=== PATIENT | female | born 1955 | race Caucasian/White ===

== ENCOUNTER 2017-09-06 18:47 | Observation (INO) ==
[2017-09-06] MEDS ORDERED: Ipratropium/Albuterol Neb 3 ML IH ONE (18:55)
[2017-09-06] MEDS ORDERED: methylPREDNISolone 125 MG/2 ML VIAL IVP ONE (19:10)
[2017-09-06 19:21] LABS: Basophils % 0.4 %; Eosinophils # 0.4 K/mcL (0.0-0.6); Eosinophils % 3.8 %; Hematocrit 46.4 % (35.3-44.9); Hemoglobin 14.6 g/dL (11.5-15.4); Immature Granulocytes % 0.2 % (0-4); Lymphocytes # 3.2 K/mcL (0.6-4.6); Lymphocytes % 34.6 %; Mean Corpuscular HGB Conc 31.5 g/dL (31.6-35.5); Mean Corpuscular Hemoglobin 25.1 pg (28.0-33.3); Mean Corpuscular Volume 79.9 fL (83.0-100.0); Mean Platelet Volume 10.3 fL (9.4-12.4); Monocytes # 0.6 K/mcL (0.0-1.3); Monocytes % 6.6 %; Platelet Count 348 K/mcL (140-400); Red Blood Count 5.81 M/mcL (3.82-4.97); Red Cell Distribution Width 20.9 % (11.5-14.5); Segmented Neutrophils % 54.4 %
--- NOTE | 2017-09-06 19:29 | Emergency Department Note ---
Disposition Clinical Impression: Acute exacerbation of chronic obstructive airways disease, Respiratory distress Disposition: Admitted As Inpatient Condition: Undetermined Time of Disposition: 21:03 SOB HPI - General Chief Complaint: ED Shortness of Breath/Dyspnea Stated Complaint: GIBRAN CP Time Seen by Provider: 09/06/17 18:49 Source: patient Mode of arrival: ambulatory Limitations: no limitations Nursing Notes Reviewed: Yes Vital Signs Reviewed: Yes - History of Present Illness 62-year-old female with history of COPD on chronic oxygen on 3 L nasal cannula chronically arrives to [facility] to the emergency department complaining of shortness of breath. The patient was recently treated for pneumonia with Levaquin which did not help. The patient is continue the Levaquin but was recently added onto Augmentin. This was roughly 1 week ago but the patient has not taken only 2 days worth of medication. She denies any other complaints other than chills, shortness of breath and chest tightness associated with the difficulty breathing. Pt Subjective Complaint: shortness of breath, cough, pain with inspiration Onset (ago): day(s) (5) Severity: moderate, severe Consistency/Duration: constant, gradually worsening Improves with: oxygen, bronchodilators Worsens with: exertion Known history of: COPD, recurrent pneumonia Associated symptoms: Reports: pain with inspiration, cough, wheezing, sputum production Treatment prior to arrival: oxygen, bronchodilator Cough present: Yes Cough Description: Involuntary, Productive Cough Frequency: Continuous Sputum production: Yes Sputum Amount: Small Sputum Color: White, Cream - Related Data Home oxygen amount: 3 liters Home Medications Medication Instructions Recorded Confirmed ALPRAZolam [Xanax 1 MG Tablet] 2 mg PO QID 02/16/16 09/06/17 Albuterol Sulfate [Proair 2 puff IH Q4H PRN 02/16/16 09/06/17 Respiclick] Aspirin 325 mg PO DAILY 02/16/16 09/06/17 Budesonide/Formoterol 160/4.5 2 puff IH BID 02/16/16 09/06/17 [Symbicort 160/4.5] Dronabinol [Marinol] 5 mg PO BID 02/16/16 09/06/17 Ergocalciferol (VITAMIN D2) 50,000 unit PO QWEEK 02/16/16 09/06/17 [Vitamin D2 (50,000 UNIT)] Furosemide [Lasix] 40 mg PO DAILY 02/16/16 09/06/17 Oxycodone HCl 15 mg PO Q6H PRN 02/16/16 09/06/17 Pantoprazole Sodium [Protonix] 80 mg PO DAILY 02/16/16 09/06/17 Potassium Chloride [K-Tab ER] 20 meq PO BID 02/16/16 09/06/17 Promethazine [Phenergan] 25 mg PO Q6HR 02/16/16 09/06/17 Roflumilast [Daliresp] 500 mcg PO DAILY 02/16/16 09/06/17 Sertraline [Zoloft] 125 mg PO DAILY 02/16/16 09/06/17 Tiotropium [Spiriva] 18 mcg IH DAILY 02/16/16 09/06/17 amLODIPine [Norvasc] 2.5 mg PO DAILY 02/16/16 09/06/17 Albuterol Neb [Proventil Neb] 2.5 mg IH TID 09/06/17 09/06/17 Amoxicillin/Clavulanate [Augmentin] 500 mg PO BID 09/06/17 09/06/17 Cyanocobalamin (B-12) [Vitamin B12] 1,000 mcg IM QMONTH 09/06/17 09/06/17 Ipratropium/Albuterol Neb [Duoneb] 3 ml IH QID 09/06/17 09/06/17 Ondansetron [Zofran] 4 mg PO BID PRN 09/06/17 09/06/17 Oxygen 1 each IH AD 09/06/17 09/06/17 Pyridoxine HCl [Vitamin B-6] 200 mg PO DAILY 09/06/17 09/06/17 Riboflavin 400 mg PO QDPC 09/06/17 09/06/17 Allergies Allergy/AdvReac Type Severity Reaction Status Date / Time levofloxacin [From Levaquin] Allergy Hives Verified 09/06/17 21:19 Cyclobenzaprine AdvReac Irritable Verified 09/06/17 21:19 [From Flexeril] gabapentin AdvReac Irritable Verified 09/06/17 21:19 All systems ED: reviewed and negative except as stated. Constitutional: Reports: chills, weakness. Denies: fever ENT ED: Denies: congestion Cardiovascular: Reports: chest pain, dyspnea on exertion. Denies: orthopnea, edema Respiratory: Reports: cough, dyspnea, wheezes, sputum production. Denies: hemoptysis Gastrointestinal: Denies: abdominal pain, nausea, vomiting Musculoskeletal: Denies: back pain, neck pain, arthralgia, myalgia Integumentary: Denies: rash Neurological: Denies: headache Past Medical History - Past Medical History Attestation: Yes The following information was validated with the patient. Source: patient Medical history: Reports: COPD, coronary artery disease, GERD, hyperlipidemia, myocardial infarction, peripheral artery disease, RA Surgical history: Reports: cholecystectomy, coronary bypass (CABG), hysterectomy Psychiatric history: Reports: anxiety, depression - Social History Smoking Status: Former smoker Smokeless Tobacco Status: No Alcohol use: Reports: rarely Drug use: Reports: none Physical Exam - General Limitations: no limitations General appearance: alert, in distress (respiratory) - Head Head exam: atraumatic, normocephalic, normal inspection - Eye Eye exam: Present: normal appearance, PERRL, EOMI - ENT ENT exam: normal exam, normal oropharynx, mucous membranes moist - Neck Neck exam: Present: normal inspection, full ROM, trachea midline - Chest Chest inspection: Present: normal inspection, symmetric chest wall rise - Respiratory Respiratory exam: Present: respiratory distress, wheezes, accessory muscle use - Cardiovascular Cardiovascular exam: Present: normal rhythm, tachycardia, normal heart sounds - Abdominal Exam Abdominal exam: Present: soft, Non-Tender. Absent: tenderness, distention, guarding, rebound, rigidity - Extremities Exam Extremities exam: Present: normal inspection, full ROM. Absent: tenderness, pedal edema Course Vital Signs Temperature 99.0 F 09/06/17 18:52 Pulse Rate 104 09/06/17 18:52 Respiratory Rate 24 09/06/17 18:52 Blood Pressure 165/120 09/06/17 18:52 O2 Sat by Pulse Oximetry 95 09/06/17 18:52 Temperature 98.1 F 09/07/17 00:01 Pulse Rate 73 09/07/17 00:01 Respiratory Rate 14 09/07/17 00:01 Blood Pressure 113/64 09/07/17 00:01 O2 Sat by Pulse Oximetry 95 09/07/17 00:01 Oxygen Delivery Oxygen Delivery Nasal Cannula Shortness of Breath/Dyspnea - [facility] Narrative Medical decision making narrative: Workup here in the emergency department demonstrates a COPD exacerbation. No obvious signs of pneumonia. We began the patient on therapy including steroids , DuoNeb. She improved greatly upon arrival to the emergency department and treatment. The patient is resting comfortably at this time but given the fact that her O2 saturation was less than 80% we will admit the patient to the hospitalist for further care and workup. Patient made aware agrees to plan. Accepted by Dr. Virk. - Lab Data Lab results reviewed: Yes I reviewed the patient's lab results. Result diagrams: 09/06/17 19:02 09/06/17 19:02 Lab Results 09/06/17 09/06/17 09/06/17 Range/Units 19:02 19:02 19:02 WBC 9.2 (4.3-11.1) K/mcL RBC 5.81 H (3.82-4.97) M/mcL Hgb 14.6 (11.5-15.4) g/dL Hct 46.4 H (35.3-44.9) % MCV 79.9 L (83.0-100.0) fL MCH 25.1 L (28.0-33.3) pg MCHC 31.5 L (31.6-35.5) g/dL RDW 20.9 H (11.5-14.5) % Plt Count 348 (140-400) K/mcL MPV 10.3 (9.4-12.4) fL Immature Gran % 0.2 (0-4) % Seg Neutrophils % 54.4 % Lymphocytes % 34.6 % Monocytes % 6.6 % Eosinophils % 3.8 % Basophils % 0.4 % Neutrophils # 5.0 (1.6-8.9) K/mcL Lymphocytes # 3.2 (0.6-4.6) K/mcL Monocytes # 0.6 (0.0-1.3) K/mcL Eosinophils # 0.4 (0.0-0.6) K/mcL Basophils # 0.0 (0.0-0.2) K/mcL Sodium 140 (136-145) mEq/L Potassium 4.0 (3.5-4.5) mEq/L Chloride 101 (98-109) mEq/L Carbon Dioxide 30 H (19-29) mEq/L BUN 6 L (7-20) mg/dL Creatinine 0.74 (0.57-1.11) mg/dL Est GFR ( Amer) > 60 (> 60) Est GFR (Non-Af Amer) > 60 (> 60) BUN/Creatinine Ratio 8 (6-26) Glucose 105 H (70-99) mg/dL Calculated Osmolality 288 (280-300) Lactic Acid 1.1 (0.5-2.2) mmol/L Calcium 9.9 (8.6-10.8) mg/dL Troponin I (0-0.03) ng/mL 09/06/17 Range/Units 20:26 WBC (4.3-11.1) K/mcL RBC (3.82-4.97) M/mcL Hgb (11.5-15.4) g/dL Hct (35.3-44.9) % MCV (83.0-100.0) fL MCH (28.0-33.3) pg MCHC (31.6-35.5) g/dL RDW (11.5-14.5) % Plt Count (140-400) K/mcL MPV (9.4-12.4) fL Immature Gran % (0-4) % Seg Neutrophils % % Lymphocytes % % Monocytes % % Eosinophils % % Basophils % % Neutrophils # (1.6-8.9) K/mcL Lymphocytes # (0.6-4.6) K/mcL Monocytes # (0.0-1.3) K/mcL Eosinophils # (0.0-0.6) K/mcL Basophils # (0.0-0.2) K/mcL Sodium (136-145) mEq/L Potassium (3.5-4.5) mEq/L Chloride (98-109) mEq/L Carbon Dioxide (19-29) mEq/L BUN (7-20) mg/dL Creatinine (0.57-1.11) mg/dL Est GFR ( Amer) (> 60) Est GFR (Non-Af Amer) (> 60) BUN/Creatinine Ratio (6-26) Glucose (70-99) mg/dL Calculated Osmolality (280-300) Lactic Acid (0.5-2.2) mmol/L Calcium (8.6-10.8) mg/dL Troponin I 0.00 (0-0.03) ng/mL - Radiology Data Radiology results reviewed: Yes I reviewed the patient's radiology results. - EKG Data EKG attestation: Yes I reviewed and interpreted this EKG. EKG results narrative: Heart rate 97 bpm. ID interval 121 ms. QTc 412 ms. Normal sinus rhythm. Difficult to assess rhythm as there is a large amount of artifact. No obvious ST elevation or ST depression but poor EKG quality overall. Critical Care Time Critical Care Time: Yes Total Critical Care Time: 33 Attestation: Acute hypoxia and respiratory distress on arrival Attestation Statement - Attestation Attestation: Dr. Rodriguez note: Patient was seen in conjunction with resident Dr. Holguin; please see his charting for complete documentation. I spent [id number] time with the patient and agree with the patient's treatment and disposition. Patient will results and x-ray were reviewed. She was admitted in stabilized condition. Tachypnea and hypoxia on home oxygen had resolved.
[2017-09-06 19:32] LABS: BUN/Creatinine Ratio 8 (6-26); Blood Urea Nitrogen 6 mg/dL (7-20); Calcium 9.9 mg/dL (8.6-10.8); Carbon Dioxide 30 mEq/L (19-29); Chloride 101 mEq/L (98-109); Glucose 105 mg/dL (70-99); Osmolality,Calculated 288 (280-300); Sodium 140 mEq/L (136-145); eGFR For African Americans > 60 (> 60); eGFR For Non-African Americans > 60 (> 60)
[2017-09-06] MEDS ORDERED: Azithromycin 500 MG in D5% in Water 250 ML IVPB ONE (20:49)
[2017-09-06] MEDS ORDERED: Ondansetron 4 MG/2 ML VIAL IVP ONE (21:15)
[2017-09-06] MEDS ORDERED: Ibuprofen 600 MG TABLET PO ONE (21:24)
[2017-09-06] MEDS ORDERED: Ondansetron ODT 4 MG TAB.RAPDIS PO PRN (22:45)
[2017-09-06] MEDS ORDERED: Ipratropium/Albuterol Neb 3 ML IH PRN (22:47)
--- NOTE | 2017-09-06 22:49 | Internal Med History&Physical ---
Date of Encounter: 09/06/17 Time of Encounter: 22:49 Assessment and Plan (1) COPD (chronic obstructive pulmonary disease) Current visit: No Status: Chronic COPD cocktail with IV meds close monitoring baseline , she is at 3 L NC OOB, ambulate in a.m Qualifiers: COPD type: emphysema Emphysema type: unspecified Qualified Code(s): J43.9 - Emphysema, unspecified (2) Tobacco abuse Current visit: Yes Status: Acute patch therapy (3) Chest pain Current visit: No Status: Acute monitor for now could be hx of reported hiatal hernia, breathing/coughing with COPD trop negative Qualifiers: Chest pain type: unspecified Qualified Code(s): R07.9 - Chest pain, unspecified Internal Medicine - H&P: HPI Chief complaint: SOB History of present illness: Ms. Rahman is a 62 year old female who presents with COPD flare. Baseline 3 L NC. Reports worsening respiratory symptoms in the last few weeks, Cough with productive of yellow sputum. Took 2 doses of augmentin prescribed by PCP at home with no improvement. Still smokes daily. Has hx of CABG, hiatal hernia and intermittent hx of chronic CP that improves with drinking milk per patient/family. EKG with rate 97, NSR XR/XR chest 1V portable IMPRESSION: 1. No acute cardiopulmonary abnormality. 2. Stable findings of emphysema with chronic bibasilar reticular opacities likely reflecting mild interstitial fibrosis. Past Med Surg Social Fam HX - Past Medical History Medical history: COPD, coronary artery disease, GERD, hyperlipidemia, myocardial infarction, peripheral artery disease, RA Psychiatric history: anxiety, depression - Past Surgical History Surgical History: cholecystectomy, coronary bypass (CABG), hysterectomy - Social History Smoking Status: Former smoker Smokeless Tobacco Status: No Alcohol use: rarely Drug use: none - Family History Mother Living Status: Hx Family Cardiac Disorders: Yes (CHF) Hx Family Respiratory Disorders: Yes (COPD) Hx Family Cancer: No Father Living Status: Hx Family Cardiac Disorders: Yes (IA,) Internal Medicine - H&P: Meds ALPRAZolam [Xanax 1 MG Tablet] 2 mg PO QID 02/16/16 [History] Albuterol Sulfate [Proair Respiclick] 2 puff IH Q4H PRN 02/16/16 [History] Aspirin 325 mg PO DAILY 02/16/16 [History] Budesonide/Formoterol 160/4.5 [Symbicort 160/4.5] 2 puff IH BID 02/16/16 [ History] Dronabinol [Marinol] 5 mg PO BID 02/16/16 [History] Ergocalciferol (VITAMIN D2) [Vitamin D2 (50,000 UNIT)] 50,000 unit PO QWEEK 07/24 [History] Furosemide [Lasix] 40 mg PO DAILY 02/16/16 [History] Oxycodone HCl 15 mg PO Q6H PRN 02/16/16 [History] Pantoprazole Sodium [Protonix] 80 mg PO DAILY 02/16/16 [History] Potassium Chloride [K-Tab ER] 20 meq PO BID 02/16/16 [History] Promethazine [Phenergan] 25 mg PO Q6HR 02/16/16 [History] Roflumilast [Daliresp] 500 mcg PO DAILY 02/16/16 [History] Sertraline [Zoloft] 125 mg PO DAILY 02/16/16 [History] Tiotropium [Spiriva] 18 mcg IH DAILY 02/16/16 [History] amLODIPine [Norvasc] 2.5 mg PO DAILY 02/16/16 [History] Albuterol Neb [Proventil Neb] 2.5 mg IH TID 09/06/17 [History] Amoxicillin/Clavulanate [Augmentin] 500 mg PO BID 09/06/17 [History] Cyanocobalamin (B-12) [Vitamin B12] 1,000 mcg IM QMONTH 09/06/17 [History] Ipratropium/Albuterol Neb [Duoneb] 3 ml IH QID 09/06/17 [History] Ondansetron [Zofran] 4 mg PO BID PRN 09/06/17 [History] Oxygen 1 each IH AD 09/06/17 [History] Pyridoxine HCl [Vitamin B-6] 200 mg PO DAILY 09/06/17 [History] Riboflavin 400 mg PO QDPC 09/06/17 [History] 3 Allergy/AdvReac Type Severity Reaction Status Date / Time levofloxacin [From Levaquin] Allergy Hives Verified 09/06/17 21:19 Cyclobenzaprine AdvReac Irritable Verified 09/06/17 21:19 [From Flexeril] gabapentin AdvReac Irritable Verified 09/06/17 21:19 All Systems PM: A 10-system review of systems was performed and is negative for pertinent findings except as documented above in the HPI. Review of systems: ROS 14 point review of systems reviewed as best as possible given presentation. Pertinent positive or negative as per HPI or otherwise reviewed as negative - Constitutional Vitals: Temp Pulse Resp BP Pulse Ox 97.4 F L 73 16 156/87 96 09/06/17 22:20 09/06/17 22:20 09/06/17 22:20 09/06/17 22:20 09/06/17 22:20 Exam: General - AAO x 3 Psych - Appropriate affect/speech. No agitation Eyes - SHARAD. Eye lids intact. No scleral icterus Heart - Sinus. RRR. S1 and S2 present. No added HS/murmurs appreciated. No elevated JVD appreciated. Lung - Adequate air entry b/l, Diffuse wheezes appreciated GI - Soft, non-tender. No hepatosplenomegaly/ascites. BS+ - No CVA/suprapubic tenderness or palpable bladder distension Skin - Intact. No rash/petechiae/ecchymosis. Warm extremities Internal Med - H&P Results - Labs CBC & Chem 7: 09/06/17 19:02 09/06/17 19:02
[2017-09-06] MEDS ORDERED: Naloxone 0.4 MG/ML INJ IVP PRN ×2 (22:56→22:58)
[2017-09-06] MEDS: MethylPREDNISolone 40 MG/ML VIAL IVP SCH (23:23)
[2017-09-06] MEDS: ALPRAZolam 1 MG TABLET PO PRN (23:24)
[2017-09-07] MEDS: Ipratropium/Albuterol Neb 3 ML IH SCH ×4 (04:32→22:27)
[2017-09-07 04:34] LABS: Hematocrit 41.6 % (35.3-44.9); Immature Granulocytes % 0.2 % (0-4); Lymphocytes # 0.4 K/mcL (0.6-4.6); Lymphocytes % 7.8 %; Mean Corpuscular HGB Conc 31.3 g/dL (31.6-35.5); Mean Corpuscular Volume 79.8 fL (83.0-100.0); Mean Platelet Volume 10.3 fL (9.4-12.4); Monocytes # 0.1 K/mcL (0.0-1.3); Monocytes % 1.1 %; Neutrophils # 5.1 K/mcL (1.6-8.9); Platelet Count 298 K/mcL (140-400); Red Blood Count 5.21 M/mcL (3.82-4.97); Red Cell Distribution Width 20.4 % (11.5-14.5); Segmented Neutrophils % 90.9 %
[2017-09-07 04:53] LABS: BUN/Creatinine Ratio 14 (6-26); Blood Urea Nitrogen 11 mg/dL (7-20); Calcium 9.3 mg/dL (8.6-10.8); Carbon Dioxide 28 mEq/L (19-29); Chloride 104 mEq/L (98-109); Glucose 168 mg/dL (70-99); Osmolality,Calculated 291 (280-300); Potassium 4.3 mEq/L (3.5-4.5); Sodium 139 mEq/L (136-145); eGFR For African Americans > 60 (> 60); eGFR For Non-African Americans > 60 (> 60)
[2017-09-07] MEDS: MethylPREDNISolone 40 MG/ML VIAL IVP SCH ×2 (07:04→15:05)
[2017-09-07] MEDS: *HR* Enoxaparin 40 MG/0.4 ML SYRINGE SQ SCH (07:04)
[2017-09-07] MEDS: Tiotropium 18 MCG inhalation IH SCH (07:41)
--- NOTE | 2017-09-07 08:16 | Internal Med Progress Note ---
Date of Encounter: 09/07/17 Time of Encounter: 08:00 - Assessment and plan (1) Respiratory distress Current Visit: Yes Status: Acute Assessment and plan: due to COPD exacerbation still required high dose IV steroids (2) Acute exacerbation of chronic obstructive airways disease Current Visit: Yes Status: Acute Assessment and plan: cont high dose IV steroids Cont Duoneb + O2 Cont empirical abx - Azithromycin Reviewed CXR - no consolidations (3) Costochondral chest pain Current Visit: No Status: Acute Assessment and plan: Mostly due to cough negative initial troponin no acute EKG changes no further work up needed (4) CHF (congestive heart failure) Current Visit: Yes Status: Chronic Assessment and plan: No Echo to review unclear Systolic vs Diastolic..mostly diastolic Not in exacerbation now cont home regimen Qualifiers: Congestive heart failure type: unspecified congestive heart failure type Qualified Code(s): I50.9 - Heart failure, unspecified (5) Chronic respiratory failure with hypoxia Current Visit: Yes Status: Acute Assessment and plan: on 3 lit Home O2 dependent (6) DVT prophylaxis Current Visit: No Status: Acute Assessment and plan: on Lovenox SQ (7) Tobacco abuse Current Visit: Yes Status: Acute Assessment and plan: counseled to quit smoking on nicotine patch - Subjective Interval history: Ms. Rahman is a 62 year old female with known PMH of HTN, HLD, COPD, Chronic hypoxic resp failure with home O2 depedent at 3 lit, chronic tobacco dependence pt presented to ER with progressively worsening SOB / ISAAC and Cough with expectoration. She got admitted with severe COPD exacerbation and started on IV abx and high dose systemic steroids. She still has severe SOB and ISAAC.. Denied any CP. Cough ++ - Constitutional Vitals: Temp Pulse Resp BP Pulse Ox 97.5 F L 58 16 106/59 96 09/07/17 06:48 09/07/17 06:48 09/07/17 06:48 09/07/17 06:48 09/07/17 06:48 General appearance: Present: mild distress (mild resp distress), A&O X 3, answers questions appropriately - Head Head exam: Present: atraumatic, normal inspection - Neck Neck exam general surgery: Present: supple - Respiratory Respiratory exam: Present: decreased breath sounds, respiratory distress (mild) , wheezes (severe, diffuse wheezing). Absent: rales, rhonchi - Cardiovascular Cardiovascular exam: Present: RRR, +S1, +S2. Absent: systolic murmur - GI/Abdominal GI/Abdominal exam: Present: normal bowel sounds, soft. Absent: rebound, rigid, tenderness - Extremities Exam Extremities exam: Absent: calf tenderness, pedal edema, tenderness - Back Exam Back exam: Absent: CVA tenderness (L), CVA tenderness (R) - Neurological Exam Neurological exam: Present: alert, oriented X3, no focal deficits - Psychiatric Psychiatric exam: Present: anxious Internal Medicine: Result - Labs CBC & Chem 7: 09/07/17 03:50 09/07/17 03:50 Labs: Short CBC 09/07/17 Range/Units 03:50 WBC 5.6 (4.3-11.1) K/mcL Hgb 13.0 D (11.5-15.4) g/dL Hct 41.6 (35.3-44.9) % Plt Count 298 (140-400) K/mcL Neutrophils # 5.1 (1.6-8.9) K/mcL BMP 09/07/17 03:50 Sodium 139 Potassium 4.3 Chloride 104 Carbon Dioxide 28 BUN 11 Creatinine 0.76 Glucose 168 H Calcium 9.3 Consult Discharge Plan - Plan Referrals: Theo Mahan MD [Primary Care Provider] -
[2017-09-07] MEDS: Furosemide 40 MG TABLET PO SCH (08:53)
[2017-09-07] MEDS: Aspirin 325 MG TABLET PO SCH (08:53)
[2017-09-07] MEDS: amLODIPine 5 MG TABLET PO SCH (08:54)
[2017-09-07] MEDS: Nicotine 14 MG PATCH.TD24 TD SCH (08:55)
[2017-09-07] MEDS ORDERED: DALIRESP 500 MCG PO SCH (09:00)
[2017-09-07] MEDS: Budesonide/Formoterol 160/4.5 MDI IH SCH ×2 (09:05→22:27)
[2017-09-07] MEDS: ALPRAZolam 1 MG TABLET PO PRN ×3 (09:07→22:01)
[2017-09-07] MEDS: *HR* OxyCODONE/APAP 5/325 TABLET PO PRN ×3 (09:13→22:01)
[2017-09-07] MEDS: Azithromycin 500 MG in D5% in Water 250 ML IVPB SCH (22:00)
[2017-09-08] MEDS: MethylPREDNISolone 40 MG/ML VIAL IVP SCH ×6 (00:18→23:18)
[2017-09-08] MEDS: Ipratropium/Albuterol Neb 3 ML IH SCH ×4 (03:58→23:58)
[2017-09-08] MEDS: Aspirin 325 MG TABLET PO SCH (08:13)
[2017-09-08] MEDS: Furosemide 40 MG TABLET PO SCH (08:13)
[2017-09-08] MEDS: amLODIPine 5 MG TABLET PO SCH (08:14)
[2017-09-08] MEDS: Nicotine 14 MG PATCH.TD24 TD SCH (08:17)
[2017-09-08] MEDS: ALPRAZolam 1 MG TABLET PO PRN ×2 (10:41→18:23)
[2017-09-08] MEDS: Budesonide/Formoterol 160/4.5 MDI IH SCH ×2 (10:48→21:32)
[2017-09-08] MEDS: Tiotropium 18 MCG inhalation IH SCH (10:49)
[2017-09-08] MEDS: *HR* Enoxaparin 40 MG/0.4 ML SYRINGE SQ SCH (14:05)
[2017-09-08] MEDS: *HR* OxyCODONE/APAP 5/325 TABLET PO PRN ×2 (14:11→18:23)
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
[2017-09-08] MEDS ORDERED: Albuterol 2.5 MG/3 ML NEBULIZER IH PRN (15:17)
[2017-09-08] MEDS ORDERED: Lactulose Oral Soln 20 GM/30 ML UDC PO PRN (15:17)
[2017-09-08] MEDS ORDERED: Sennosides/Docusate Sodium TABLET PO PRN (15:17)
--- NOTE | 2017-09-08 16:00 | Internal Med Progress Note ---
Date of Encounter: 09/08/17 Time of Encounter: 15:58 - Assessment and plan (1) Respiratory distress Current Visit: Yes Status: Acute Assessment and plan: due to COPD exacerbation Improving still required high dose IV steroids (2) Acute exacerbation of chronic obstructive airways disease Current Visit: Yes Status: Acute Assessment and plan: improving slowly will start tapering her IV steroids Cont Duoneb + O2 Cont empirical abx - Azithromycin Reviewed CXR - no consolidations (3) Mood disorder of depressed type Current Visit: Yes Status: Acute Assessment and plan: Pt denied any suicidal ideation pt was evaluated by psych Recommend out pt f/u with Psychiatrist as well as behavioral therapist cont sertraline for now (4) Costochondral chest pain Current Visit: No Status: Acute Assessment and plan: Mostly due to cough negative initial troponin no acute EKG changes no further work up needed (5) CHF (congestive heart failure) Current Visit: Yes Status: Chronic Assessment and plan: No Echo to review unclear Systolic vs Diastolic..mostly diastolic Not in exacerbation now cont home regimen Qualifiers: Congestive heart failure type: unspecified congestive heart failure type Qualified Code(s): I50.9 - Heart failure, unspecified (6) Chronic respiratory failure with hypoxia Current Visit: Yes Status: Acute Assessment and plan: on 3 lit Home O2 dependent (7) DVT prophylaxis Current Visit: No Status: Acute Assessment and plan: on Lovenox SQ (8) Tobacco abuse Current Visit: Yes Status: Acute Assessment and plan: counseled to quit smoking on nicotine patch - Subjective Interval history: Ms. Rahman is a 62 year old female with known PMH of HTN, HLD, COPD, Chronic hypoxic resp failure with home O2 depedent at 3 lit, chronic tobacco dependence pt presented to ER with progressively worsening SOB / ISAAC and Cough with expectoration. She got admitted with severe COPD exacerbation and started on IV abx and high dose systemic steroids. Pt stated she is feeling little better today. Still has some SOB and ISAAC. Denied any CP. Cough ++. Y/D pt did mention to the nursing staff she is feeling depressed. Pt was evaluated by psychiatrist today. She denied any suicidal thoughts now. - Constitutional Vitals: Temp Pulse Resp BP Pulse Ox 98.2 F 85 16 134/88 98 09/08/17 06:30 09/08/17 06:30 09/08/17 15:18 09/08/17 06:30 09/08/17 15:18 General appearance: Present: A&O X 3, answers questions appropriately - Head Head exam: Present: atraumatic, normal inspection - Neck Neck exam general surgery: Present: supple - Respiratory Respiratory exam: Present: decreased breath sounds, wheezes (moderate to severe) . Absent: rales, respiratory distress, rhonchi - Cardiovascular Cardiovascular exam: Present: RRR, +S1, +S2. Absent: diastolic murmur, gallop, rubs, systolic murmur - GI/Abdominal GI/Abdominal exam: Present: normal bowel sounds, soft. Absent: rebound, rigid, tenderness - Extremities Exam Extremities exam: Absent: calf tenderness, pedal edema, tenderness - Back Exam Back exam: Absent: CVA tenderness (L), CVA tenderness (R) - Neurological Exam Neurological exam: Present: alert, oriented X3 - Psychiatric Psychiatric exam: Present: depressed. Absent: homicidal ideation, suicidal ideation - Skin Skin exam: Absent: rash Internal Medicine: Result - Labs CBC & Chem 7: 09/07/17 03:50 09/07/17 03:50 Consult Discharge Plan - Plan Referrals: Theo Mahan MD [Primary Care Provider] -
--- NOTE | 2017-09-08 16:28 | Electrocardiograph Report ---
[address] [place], [place] [address] Test Date: 2017-09-06 Pat Name: Aida Rahman Department: 103 Room: 3A15 Gender: F Survey Supervisor: : [id number] Requested By: Charanjit Salamanca Order Number: [id number] Reading MD: Jerome Murphy Measurements Intervals [place] Rate: 97 P: 76 WI: 121 QRS: 48 QRSD: 98 T: 58 QT: 358 QTc: 412 Interpretive Statements SUPRAVENTRICULAR RHYTHM ARTIFACT LIMITS INTERPRETATION Electronically Signed On 09-08-2017 16:27:10 EST by Jerome Murphy
[2017-09-08] MEDS: Azithromycin 500 MG in D5% in Water 250 ML IVPB SCH (21:14)
[2017-09-09] MEDS: Ipratropium/Albuterol Neb 3 ML IH SCH ×4 (03:30→22:21)
[2017-09-09] MEDS: *HR* Enoxaparin 40 MG/0.4 ML SYRINGE SQ SCH (05:28)
[2017-09-09] MEDS: amLODIPine 5 MG TABLET PO SCH (08:51)
[2017-09-09] MEDS: *HR* OxyCODONE/APAP 5/325 TABLET PO PRN ×2 (08:51→22:44)
[2017-09-09] MEDS: Aspirin 325 MG TABLET PO SCH (08:51)
[2017-09-09] MEDS: Furosemide 40 MG TABLET PO SCH (08:52)
[2017-09-09] MEDS: MethylPREDNISolone 40 MG/ML VIAL IVP SCH ×2 (08:52→17:23)
[2017-09-09] MEDS: Nicotine 14 MG PATCH.TD24 TD SCH (08:52)
[2017-09-09] MEDS: Budesonide/Formoterol 160/4.5 MDI IH SCH ×2 (09:30→22:21)
[2017-09-09] MEDS: Tiotropium 18 MCG inhalation IH SCH (09:30)
[2017-09-09] MEDS: ALPRAZolam 1 MG TABLET PO PRN ×2 (12:27→17:23)
--- NOTE | 2017-09-09 14:44 | Internal Med Progress Note ---
Date of Encounter: 09/09/17 Time of Encounter: 10:45 - Assessment and plan (1) Respiratory distress Current Visit: Yes Status: Acute Assessment and plan: due to COPD exacerbation Improving started tapering IV steroids (2) Acute exacerbation of chronic obstructive airways disease Current Visit: Yes Status: Acute Assessment and plan: improving slowly cont tapering her IV steroids Cont Duoneb + O2 Cont empirical abx - Azithromycin Reviewed CXR - no consolidations (3) Mood disorder of depressed type Current Visit: Yes Status: Acute Assessment and plan: Pt denied any suicidal ideation pt was evaluated by psych Recommend out pt f/u with Psychiatrist as well as behavioral therapist cont sertraline for now (4) Costochondral chest pain Current Visit: No Status: Acute Assessment and plan: Mostly due to cough negative initial troponin no acute EKG changes no further work up needed (5) CHF (congestive heart failure) Current Visit: Yes Status: Chronic Assessment and plan: No Echo to review unclear Systolic vs Diastolic..mostly diastolic Not in exacerbation now cont home regimen Qualifiers: Congestive heart failure type: unspecified congestive heart failure type Qualified Code(s): I50.9 - Heart failure, unspecified (6) Chronic respiratory failure with hypoxia Current Visit: Yes Status: Acute Assessment and plan: on 3 lit Home O2 dependent (7) DVT prophylaxis Current Visit: No Status: Acute Assessment and plan: on Lovenox SQ (8) Tobacco abuse Current Visit: Yes Status: Acute Assessment and plan: counseled to quit smoking on nicotine patch (9) Physical deconditioning Current Visit: Yes Status: Acute Assessment and plan: Pt stated from last 2 weeks she is feleing very weak and lethargic and unable to care for herself will order PT / OT eval May need SNF placement for shirt term PT / OT.. SW consulted - Subjective Interval history: Ms. Rahman is a 62 year old female with known PMH of HTN, HLD, COPD, Chronic hypoxic resp failure with home O2 depedent at 3 lit, chronic tobacco dependence pt presented to ER with progressively worsening SOB / ISAAC and Cough with expectoration. She got admitted with severe COPD exacerbation and started on IV abx and high dose systemic steroids. Pt stated she is feeling little better today. Still has some SOB and ISAAC. Denied any CP. Cough ++. No new complaints today She denied any suicidal thoughts now. - Constitutional Vitals: Temp Pulse Resp BP Pulse Ox 97.8 F 57 18 128/70 97 09/09/17 07:31 09/09/17 07:31 09/09/17 07:31 09/09/17 07:31 09/09/17 07:31 General appearance: Present: A&O X 3, answers questions appropriately - Head Head exam: Present: atraumatic, normal inspection - Neck Neck exam general surgery: Present: supple - Respiratory Respiratory exam: Present: decreased breath sounds, wheezes (moderate). Absent : rales, respiratory distress, rhonchi - Cardiovascular Cardiovascular exam: Present: RRR, +S1, +S2. Absent: diastolic murmur, gallop, rubs, systolic murmur - GI/Abdominal GI/Abdominal exam: Present: normal bowel sounds, soft. Absent: rebound, rigid, tenderness - Extremities Exam Extremities exam: Absent: calf tenderness, pedal edema, tenderness - Back Exam Back exam: Absent: CVA tenderness (L), CVA tenderness (R) - Neurological Exam Neurological exam: Present: alert, oriented X3 - Psychiatric Psychiatric exam: Present: normal affect, normal mood. Absent: suicidal ideation Internal Medicine: Result - Labs CBC & Chem 7: 09/07/17 03:50 09/07/17 03:50 Consult Discharge Plan - Plan Referrals: Theo Mahan MD [Primary Care Provider] -
[2017-09-09] MEDS: Azithromycin 500 MG in D5% in Water 250 ML IVPB SCH (22:42)
[2017-09-10] MEDS: ALPRAZolam 1 MG TABLET PO PRN ×3 (00:46→17:57)
[2017-09-10] MEDS: Ipratropium/Albuterol Neb 3 ML IH SCH ×4 (04:32→21:28)
[2017-09-10] MEDS: *HR* Enoxaparin 40 MG/0.4 ML SYRINGE SQ SCH (06:42)
[2017-09-10] MEDS: MethylPREDNISolone 40 MG/ML VIAL IVP SCH ×2 (06:43→17:57)
[2017-09-10] MEDS: amLODIPine 5 MG TABLET PO SCH (08:36)
[2017-09-10] MEDS: Nicotine 14 MG PATCH.TD24 TD SCH (08:36)
[2017-09-10] MEDS: Aspirin 325 MG TABLET PO SCH (08:37)
[2017-09-10] MEDS: Furosemide 40 MG TABLET PO SCH (08:38)
[2017-09-10] MEDS: Budesonide/Formoterol 160/4.5 MDI IH SCH ×2 (11:01→21:28)
[2017-09-10] MEDS: Tiotropium 18 MCG inhalation IH SCH (11:01)
[2017-09-10] MEDS: *HR* OxyCODONE/APAP 5/325 TABLET PO PRN ×2 (14:49→23:26)
--- NOTE | 2017-09-10 15:16 | Internal Med Progress Note ---
Date of Encounter: 09/10/17 Time of Encounter: 09:00 - Assessment and plan (1) Respiratory distress Current Visit: Yes Status: Acute Assessment and plan: due to COPD exacerbation Improving cont tapering IV steroids (2) Acute exacerbation of chronic obstructive airways disease Current Visit: Yes Status: Acute Assessment and plan: improving slowly cont tapering her IV steroids Cont Duoneb + O2 Cont empirical abx - Azithromycin # 4/5 Reviewed CXR - no consolidations (3) Mood disorder of depressed type Current Visit: Yes Status: Acute Assessment and plan: Pt denied any suicidal ideation pt was evaluated by psych Recommend out pt f/u with Psychiatrist as well as behavioral therapist cont sertraline for now (4) Costochondral chest pain Current Visit: No Status: Acute Assessment and plan: Mostly due to cough negative initial troponin no acute EKG changes no further work up needed (5) CHF (congestive heart failure) Current Visit: Yes Status: Chronic Assessment and plan: No Echo to review unclear Systolic vs Diastolic..mostly diastolic Not in exacerbation now cont home regimen Qualifiers: Congestive heart failure type: unspecified congestive heart failure type Qualified Code(s): I50.9 - Heart failure, unspecified (6) Chronic respiratory failure with hypoxia Current Visit: Yes Status: Acute Assessment and plan: on 3 lit Home O2 dependent (7) DVT prophylaxis Current Visit: No Status: Acute Assessment and plan: on Lovenox SQ (8) Tobacco abuse Current Visit: Yes Status: Acute Assessment and plan: counseled to quit smoking on nicotine patch (9) Physical deconditioning Current Visit: Yes Status: Acute Assessment and plan: Pt stated from last 2 weeks she is feeling very weak and lethargic and unable to care for herself waiting on PT / OT eval May need SNF placement for shirt term PT / OT.. SW consulted - Subjective Interval history: Ms. Rahman is a 62 year old female with known PMH of HTN, HLD, COPD, Chronic hypoxic resp failure with home O2 depedent at 3 lit, chronic tobacco dependence pt presented to ER with progressively worsening SOB / ISAAC and Cough with expectoration. She got admitted with severe COPD exacerbation and started on IV abx and high dose systemic steroids. Pt stated she is feeling little better today. Still has some SOB and ISAAC. Denied any CP. Cough ++. No new complaints today. She denied any suicidal thoughts now. - Constitutional Vitals: Temp Pulse Resp BP Pulse Ox 98 F 57 16 158/71 99 09/10/17 07:03 09/10/17 07:03 09/10/17 11:04 09/10/17 07:03 09/10/17 11:04 General appearance: Present: A&O X 3, answers questions appropriately - Head Head exam: Present: atraumatic, normal inspection - Respiratory Respiratory exam: Present: decreased breath sounds, wheezes (mild to moderate). Absent: rales, respiratory distress, rhonchi - Cardiovascular Cardiovascular exam: Present: RRR, +S1, +S2. Absent: systolic murmur - GI/Abdominal GI/Abdominal exam: Present: normal bowel sounds, soft. Absent: rebound, rigid, tenderness - Extremities Exam Extremities exam: Absent: calf tenderness, pedal edema, tenderness - Back Exam Back exam: Absent: CVA tenderness (L), CVA tenderness (R) - Neurological Exam Neurological exam: Present: alert, oriented X3 - Psychiatric Psychiatric exam: Present: normal affect, normal mood Internal Medicine: Result - Labs CBC & Chem 7: 09/07/17 03:50 09/07/17 03:50 Consult Discharge Plan - Plan Referrals: Theo Mahan MD [Primary Care Provider] -
[2017-09-10] MEDS: Azithromycin 500 MG in D5% in Water 250 ML IVPB SCH (23:25)
[2017-09-11] MEDS: *HR* OxyCODONE/APAP 5/325 TABLET PO PRN (03:30)
[2017-09-11] MEDS: Ipratropium/Albuterol Neb 3 ML IH SCH (04:51)
[2017-09-11 06:49] VITALS: BP 122/69
[2017-09-11] MEDS: MethylPREDNISolone 40 MG/ML VIAL IVP SCH (07:18)
[2017-09-11] MEDS: *HR* Enoxaparin 40 MG/0.4 ML SYRINGE SQ SCH (07:19)
--- NOTE | 2017-09-11 10:13 | Discharge Summary ---
Date of Encounter: 09/11/17 Time of Encounter: 10:10 - Discharge Diagnosis (1) Respiratory distress Priority: Primary Status: Acute (2) Acute exacerbation of chronic obstructive airways disease Priority: Primary Status: Acute (3) Mood disorder of depressed type Priority: Primary Status: Acute (4) Costochondral chest pain Priority: Secondary Status: Acute (5) CHF (congestive heart failure) Priority: Secondary Status: Chronic Qualifiers: Congestive heart failure type: unspecified congestive heart failure type Qualified Code(s): I50.9 - Heart failure, unspecified (6) Chronic respiratory failure with hypoxia Priority: Secondary Status: Acute (7) DVT prophylaxis Priority: Secondary Status: Acute (8) Tobacco abuse Priority: Secondary Status: Acute (9) Physical deconditioning Priority: Secondary Status: Acute - Discharge Medications Prescriptions: Albuterol Neb [Proventil Neb] 2.5 mg IH Q4H PRN #120 inhsol PRN Reason: Shortness Of Breath Nicotine Patch [Nicoderm] 14 mg TD DAILY #30 patch.td24 predniSONE [PredniSONE] 40 mg PO DAILY #10 tablet Home Medications: ALPRAZolam [Xanax 1 MG Tablet] 2 mg PO QID 02/16/16 [History] Albuterol Sulfate [Proair Respiclick] 2 puff IH Q4H PRN 02/16/16 [History] Aspirin 325 mg PO DAILY 02/16/16 [History] Budesonide/Formoterol 160/4.5 [Symbicort 160/4.5] 2 puff IH BID 02/16/16 [ History] Dronabinol [Marinol] 5 mg PO BID 02/16/16 [History] Ergocalciferol (VITAMIN D2) [Vitamin D2 (50,000 UNIT)] 50,000 unit PO QWEEK 07/24 [History] Furosemide [Lasix] 40 mg PO DAILY 02/16/16 [History] Oxycodone HCl 15 mg PO Q6H PRN 02/16/16 [History] Potassium Chloride [K-Tab ER] 20 meq PO BID 02/16/16 [History] Promethazine [Phenergan] 25 mg PO Q6HR 02/16/16 [History] Roflumilast [Daliresp] 500 mcg PO DAILY 02/16/16 [History] Sertraline [Zoloft] 125 mg PO DAILY 02/16/16 [History] Tiotropium [Spiriva] 18 mcg IH DAILY 02/16/16 [History] amLODIPine [Norvasc] 2.5 mg PO DAILY 02/16/16 [History] Cyanocobalamin (B-12) [Vitamin B12] 1,000 mcg IM QMONTH 09/06/17 [History] Ipratropium/Albuterol Neb [Duoneb] 3 ml IH QID 09/06/17 [History] Ondansetron [Zofran] 4 mg PO BID PRN 09/06/17 [History] Oxygen 1 each IH AD 09/06/17 [History] Pyridoxine HCl [Vitamin B-6] 200 mg PO DAILY 09/06/17 [History] Riboflavin 400 mg PO QDPC 09/06/17 [History] Albuterol Neb [Proventil Neb] 2.5 mg IH Q4H PRN #120 inhsol 09/11/17 [Rx] Nicotine Patch [Nicoderm] 14 mg TD DAILY #30 patch.td24 09/11/17 [Rx] Pantoprazole Sodium [Protonix] 40 mg PO DAILY #0 09/11/17 [Rx] predniSONE [PredniSONE] 40 mg PO DAILY #10 tablet 09/11/17 [Rx] Allergies/Adverse Reactions: 3 Allergy/AdvReac Type Severity Reaction Status Date / Time levofloxacin [From Levaquin] Allergy Hives Verified 09/06/17 21:19 Cyclobenzaprine AdvReac Irritable Verified 09/06/17 21:19 [From Flexeril] gabapentin AdvReac Irritable Verified 09/06/17 21:19 Date of admission: 09/06/17 22:56 Primary care physician: Theo Mahan MD Consults: 09/07/17 13:09 Consult to Psychiatry [CONS] Routine Consulting Provider: Psychiatry Cher Reason for Consult: severe depression Call Completed: Yes 09/09/17 14:41 Consult to Physical Therapy [CONS] Routine Comment: Evaluate, develop and implement POC Reason for Consult: physical deconditioning OT [Consult to Occupational Therapy] [CONS] Routine Comment: Evaluate, develop and implement POC Reason for Consult: physical deconditioning 09/09/17 14:46 Consult to Packaging Inspector [CONS] Routine Reason for SW Consult: May need SNF placement - Patient Status Disposition: Home, Self-Care Condition: Good Overall status at discharge: patient is back to baseline - Discharge Instructions Follow Up With: Theo Mahan MD [Primary Care Provider] - Additional Instructions: Need to f/u with psychiatrist [facility] 1[facility]2 weeks Also need to f/u with behavioral therapist.. please talk to your PCP to arrange these. - Diet and Activity Activity: wear oxygen at all times (3 lit) Diet: low salt diet Hospital course: Ms. Rahman is a 62 year old female with known PMH of HTN, HLD, COPD, Chronic hypoxic resp failure with home O2 depedent at 3 lit, chronic tobacco dependence pt presented to ER with progressively worsening SOB / ISAAC and Cough with expectoration. She got admitted with severe COPD exacerbation and started on IV abx and high dose systemic steroids. Pt symptoms started improving slowly. We started tapering down her steroids since last 2 days. Today she feels like she back to baseline her breathing otoole and wants to go home. I did disability counselor the pt to quit smoking. She also c/o feeling depressed during this hospitalization but denied any suicidal ideation. She was seen by psychiatrist and recommend to cont her home med Sertraline and f/u with psychiatrist and behavioral therapist as an out pt. - Time Spent with Patient Total time spent providing and/or coordinating discharge services: - Constitutional Vitals: Temp Pulse Resp BP Pulse Ox 97.4 F L 56 18 122/69 100 09/11/17 06:45 09/11/17 06:45 09/11/17 06:45 09/11/17 06:45 09/11/17 09:17 General appearance: Present: A&O X 3, answers questions appropriately - Head Head exam: Present: atraumatic, normal inspection - Respiratory Respiratory exam: Present: decreased breath sounds, wheezes (mild). Absent: rales, respiratory distress, rhonchi - Cardiovascular Cardiovascular exam: Present: RRR, +S1, +S2. Absent: tachycardia - GI/Abdominal GI/Abdominal exam: Present: normal bowel sounds, soft. Absent: rebound, rigid, tenderness - Extremities Exam Extremities exam: Absent: calf tenderness, pedal edema, tenderness - Back Exam Back exam: Absent: CVA tenderness (L), CVA tenderness (R) - Psychiatric Psychiatric exam: Present: normal affect, normal mood. Absent: homicidal ideation, suicidal ideation
[2017-09-11] MEDS: ALPRAZolam 1 MG TABLET PO PRN (10:35)
[2017-09-11] MEDS: amLODIPine 5 MG TABLET PO SCH (10:36)
[2017-09-11] MEDS: Aspirin 325 MG TABLET PO SCH (10:36)
[2017-09-11] MEDS: Furosemide 40 MG TABLET PO SCH (10:36)
[2017-09-11] MEDS: Nicotine 14 MG PATCH.TD24 TD SCH (10:37)
[2017-09-11] MEDS: Tiotropium 18 MCG inhalation IH SCH (10:49)
== END 2017-09-11 12:08 | disposition home or self-care (01) | DRG 190 ==
LOC: 3ANU 18:47 → EMEROO 18:47 → 3ANU 22:03
PROVIDERS: ADMIT Internal Medicine Hematology & Oncology; ATTEND Family Medicine

== ENCOUNTER 2017-11-20 10:31 | Inpatient (IN) ==
[2017-11-20] MEDS ORDERED: methylPREDNISolone 125 MG/2 ML VIAL IVP ONE (11:21)
--- NOTE | 2017-11-20 11:42 | Emergency Department Note ---
Disposition Clinical Impression: Acute exacerbation of chronic obstructive airways disease, HCAP (healthcare- associated pneumonia) Disposition: Admitted As Inpatient Condition: Good Time of Disposition: 11:44 SOB HPI - General Chief Complaint: ED Shortness of Breath/Dyspnea Stated Complaint: GIBRAN Cough up blood Time Seen by Provider: 11/20/17 11:01 Source: patient Mode of arrival: ambulatory Limitations: no limitations Nursing Notes Reviewed: Yes Vital Signs Reviewed: Yes - History of Present Illness 62-year-old female presents to the emergency department with concerns of difficulty in breathing. Patient states symptoms have been worsening over the past month. Patient notes similar symptoms with previous COPD exacerbation. Denies fever. She does note she has had a cough productive of yellow-green sputum and hemoptysis. Described hemoptysis as a teaspoon of bright red blood intermittently with coughing. No recent trauma. Does not take any blood thinning medications other than aspirin. Patient states she has a "heaviness" on her chest which makes it difficult for her to breathe. Patient denies acute change in her symptoms within the past 24-48 hours. Hemoptysis has been present for the past week however symptoms have been worsening for the past month. States she was admitted to the hospital for similar symptoms 3 months ago. - Related Data Home Medications Medication Instructions Recorded Confirmed ALPRAZolam [Xanax 1 MG Tablet] 2 mg PO QID 02/16/16 11/20/17 Albuterol Sulfate [Proair 2 puff IH Q4H PRN 02/16/16 11/20/17 Respiclick] Aspirin 325 mg PO DAILY 02/16/16 11/20/17 Budesonide/Formoterol 160/4.5 2 puff IH BID 02/16/16 11/20/17 [Symbicort 160/4.5] Dronabinol [Marinol] 5 mg PO BID 02/16/16 11/20/17 Ergocalciferol (VITAMIN D2) 50,000 unit PO QWEEK 02/16/16 11/20/17 [Vitamin D2 (50,000 UNIT)] Furosemide [Lasix] 40 mg PO DAILY 02/16/16 11/20/17 Oxycodone HCl 15 mg PO Q6H PRN 02/16/16 11/20/17 Potassium Chloride [K-Tab ER] 20 meq PO BID 02/16/16 11/20/17 Promethazine [Phenergan] 25 mg PO Q6HR 02/16/16 11/20/17 Roflumilast [Daliresp] 500 mcg PO DAILY 02/16/16 11/20/17 Sertraline [Zoloft] 125 mg PO DAILY 02/16/16 11/20/17 Tiotropium [Spiriva] 18 mcg IH DAILY 02/16/16 11/20/17 amLODIPine [Norvasc] 2.5 mg PO DAILY 02/16/16 11/20/17 Ipratropium/Albuterol Neb [Duoneb] 3 ml IH QID 09/06/17 11/20/17 Ondansetron [Zofran] 4 mg PO BID PRN 09/06/17 11/20/17 Oxygen 1 each IH AD 09/06/17 11/20/17 Pyridoxine HCl [Vitamin B-6] 200 mg PO DAILY 09/06/17 11/20/17 Riboflavin 400 mg PO QDPC 09/06/17 11/20/17 Previous Rx's Medication Instructions Recorded Albuterol Neb [Proventil Neb] 2.5 mg IH Q4H PRN #120 inhsol 09/11/17 Pantoprazole Sodium [Protonix] 40 mg PO DAILY #0 09/11/17 Allergies Allergy/AdvReac Type Severity Reaction Status Date / Time Cyclobenzaprine AdvReac Irritable Verified 11/20/17 10:58 [From Flexeril] gabapentin AdvReac Irritable Verified 11/20/17 10:58 All systems ED: reviewed and negative except as stated. Review of Systems: As Per HPI Constitutional: Reports: weakness. Denies: fever Cardiovascular: Reports: chest pain, dyspnea on exertion. Denies: palpitations Respiratory: Reports: cough, dyspnea, wheezes, hemoptysis. Denies: stridor Gastrointestinal: Denies: abdominal pain, nausea, vomiting Past Medical History - Past Medical History Attestation: Yes The following information was validated with the patient. Source: patient Medical history: Reports: COPD, coronary artery disease, GERD, hyperlipidemia, myocardial infarction, peripheral artery disease, RA Surgical history: Reports: cholecystectomy, coronary bypass (CABG), hysterectomy Psychiatric history: Reports: no psych history - Social History Smoking Status: Former smoker Smokeless Tobacco Status: No Alcohol use: Reports: rarely Drug use: Reports: none Physical Exam General: Alert and in mild respiratory distress Skin: Warm, dry, intact Head: Normocephalic and atraumatic Neck: Supple, trachea midline and no tenderness Cardiovascular: RRR, no murmur, normal perfusion Respiratory: Wheezing present to the bilateral posterior lung davis with minimal air movement. Musculoskeletal: Normal strength, no tenderness, swelling or deformity GI: Soft, nontender, nondistended. Bowel sounds present Neuro: A&O to person, place, time and situation. No focal deficits noted on exam Psychiatric: cooperative and appropriate mood and affect. - General Limitations: no limitations General appearance: alert, in no apparent distress Course Vital Signs Temperature 97.8 F 11/20/17 10:56 Pulse Rate 78 11/20/17 10:56 Respiratory Rate 20 11/20/17 10:56 Blood Pressure 138/85 11/20/17 10:56 O2 Sat by Pulse Oximetry 98 11/20/17 10:56 Temperature 97.5 F L 11/20/17 15:51 Pulse Rate 70 11/20/17 15:51 Respiratory Rate 16 11/20/17 15:51 Blood Pressure 138/82 11/20/17 15:51 O2 Sat by Pulse Oximetry 95 11/20/17 16:42 Oxygen Delivery Oxygen Delivery Nasal Cannula Shortness of Breath/Dyspnea - [facility] Narrative Medical decision making narrative: CTA of the chest did not show evidence of PE however did show possible atypical pneumonia. Patient started on antibiotics in the emergency department. Patient admitted to the hospitalist for further care and evaluation. Breathing improved after administration of nebulizer in the emergency department. - Medical Records Medical records reviewed: Yes I reviewed the patient's medical records. - Lab Data Lab results reviewed: Yes I reviewed the patient's lab results. Result diagrams: 11/20/17 11:56 11/20/17 11:56 Lab Results 11/20/17 11/20/17 11/20/17 Range/Units 11:56 11:56 11:56 WBC 7.5 (4.3-11.1) K/mcL RBC 5.69 H (3.82-4.97) M/mcL Hgb 14.4 (11.5-15.4) g/dL Hct 47.6 H (35.3-44.9) % MCV 83.7 (83.0-100.0) fL MCH 25.3 L (28.0-33.3) pg MCHC 30.3 L (31.6-35.5) g/dL RDW 17.6 H (11.5-14.5) % Plt Count 309 (140-400) K/mcL MPV 9.9 (9.4-12.4) fL Immature Gran % 0.3 (0-4) % Seg Neutrophils % 64.5 % Lymphocytes % 25.0 % Monocytes % 6.0 % Eosinophils % 3.9 % Basophils % 0.3 % Neutrophils # 4.9 (1.6-8.9) K/mcL Lymphocytes # 1.9 (0.6-4.6) K/mcL Monocytes # 0.5 (0.0-1.3) K/mcL Eosinophils # 0.3 (0.0-0.6) K/mcL Basophils # 0.0 (0.0-0.2) K/mcL PT 10.4 (9.4-12.1) Seconds INR 1.0 APTT 32.3 (26.0-36.0) Seconds D-Dimer 584 H (0-500) ng/mLFEU Sodium 140 (136-145) mEq/L Potassium 4.3 (3.5-5.1) mEq/L Chloride 103 (98-107) mEq/L Carbon Dioxide 33 H (23-29) mEq/L BUN 10 (8-23) mg/dL Creatinine 0.69 (0.60-1.20) mg/dL Est GFR ( Amer) > 60 (> 60) Est GFR (Non-Af Amer) > 60 (> 60) BUN/Creatinine Ratio 14 (6-26) Glucose 92 (70-105) mg/dL Calculated Osmolality 289 (280-300) Lactic Acid (0.5-2.2) mmol/L Calcium 9.7 (8.6-10.3) mg/dL Total Bilirubin 0.4 (0.3-1.0) mg/dL Direct Bilirubin 0.0 (0.0-0.2) mg/dL Indirect Bilirubin 0.4 (0.0-1.2) mg/dL AST 15 (13-39) Units/L ALT 11 (7-52) Units/L Alkaline Phosphatase 59 (34-104) Units/L Troponin I (< 0.04) ng/mL B-Natriuretic Peptide (Less than 100) pg/mL Serum Total Protein 7.2 (6.4-8.9) g/dL Albumin 4.0 (3.5-5.7) g/dL Globulin 3.2 (2.4-3.5) g/dL Albumin/Globulin Ratio 1.3 (1.1-2.2) 11/20/17 11/20/17 11/20/17 Range/Units 11:56 11:56 11:56 WBC (4.3-11.1) K/mcL RBC (3.82-4.97) M/mcL Hgb (11.5-15.4) g/dL Hct (35.3-44.9) % MCV (83.0-100.0) fL MCH (28.0-33.3) pg MCHC (31.6-35.5) g/dL RDW (11.5-14.5) % Plt Count (140-400) K/mcL MPV (9.4-12.4) fL Immature Gran % (0-4) % Seg Neutrophils % % Lymphocytes % % Monocytes % % Eosinophils % % Basophils % % Neutrophils # (1.6-8.9) K/mcL Lymphocytes # (0.6-4.6) K/mcL Monocytes # (0.0-1.3) K/mcL Eosinophils # (0.0-0.6) K/mcL Basophils # (0.0-0.2) K/mcL PT (9.4-12.1) Seconds INR APTT (26.0-36.0) Seconds D-Dimer (0-500) ng/mLFEU Sodium (136-145) mEq/L Potassium (3.5-5.1) mEq/L Chloride (98-107) mEq/L Carbon Dioxide (23-29) mEq/L BUN (8-23) mg/dL Creatinine (0.60-1.20) mg/dL Est GFR ( Amer) (> 60) Est GFR (Non-Af Amer) (> 60) BUN/Creatinine Ratio (6-26) Glucose (70-105) mg/dL Calculated Osmolality (280-300) Lactic Acid 0.5 (0.5-2.2) mmol/L Calcium (8.6-10.3) mg/dL Total Bilirubin (0.3-1.0) mg/dL Direct Bilirubin (0.0-0.2) mg/dL Indirect Bilirubin (0.0-1.2) mg/dL AST (13-39) Units/L ALT (7-52) Units/L Alkaline Phosphatase (34-104) Units/L Troponin I < 0.03 (< 0.04) ng/mL B-Natriuretic Peptide 43 (Less than 100) pg/mL Serum Total Protein (6.4-8.9) g/dL Albumin (3.5-5.7) g/dL Globulin (2.4-3.5) g/dL Albumin/Globulin Ratio (1.1-2.2) - Radiology Data Radiology results reviewed: Yes I reviewed the patient's radiology results. - EKG Data EKG attestation: Yes I reviewed and interpreted this EKG. EKG results narrative: ECG - interpreted by ED physician. Rate 81, normal sinus rhythm, no STEMI, T- wave inversion of lead V1 and V2
[2017-11-20 12:12] LABS: Basophils % 0.3 %; Eosinophils # 0.3 K/mcL (0.0-0.6); Eosinophils % 3.9 %; Hematocrit 47.6 % (35.3-44.9); Hemoglobin 14.4 g/dL (11.5-15.4); Immature Granulocytes % 0.3 % (0-4); Lymphocytes # 1.9 K/mcL (0.6-4.6); Mean Corpuscular HGB Conc 30.3 g/dL (31.6-35.5); Mean Corpuscular Hemoglobin 25.3 pg (28.0-33.3); Mean Corpuscular Volume 83.7 fL (83.0-100.0); Mean Platelet Volume 9.9 fL (9.4-12.4); Monocytes # 0.5 K/mcL (0.0-1.3); Neutrophils # 4.9 K/mcL (1.6-8.9); Platelet Count 309 K/mcL (140-400); Red Blood Count 5.69 M/mcL (3.82-4.97); Red Cell Distribution Width 17.6 % (11.5-14.5); Segmented Neutrophils % 64.5 %
[2017-11-20 12:13] LABS: Prothrombin Time 10.4 Seconds (9.4-12.1)
[2017-11-20 12:16] LABS: Activated Partial Thrombo Time 32.3 Seconds (26.0-36.0)
[2017-11-20 12:30] LABS: Alanine Aminotransferase 11 Units/L (7-52); Albumin/Globulin Ratio 1.3 (1.1-2.2); Alkaline Phosphatase 59 Units/L (34-104); Aspartate Amino Transferase 15 Units/L (13-39); BUN/Creatinine Ratio 14 (6-26); Bilirubin,Indirect 0.4 mg/dL (0.0-1.2); Bilirubin,Total 0.4 mg/dL (0.3-1.0); Blood Urea Nitrogen 10 mg/dL (8-23); Calcium 9.7 mg/dL (8.6-10.3); Carbon Dioxide 33 mEq/L (23-29); Chloride 103 mEq/L (98-107); Globulin 3.2 g/dL (2.4-3.5); Glucose 92 mg/dL (70-105); Osmolality,Calculated 289 (280-300); Potassium 4.3 mEq/L (3.5-5.1); Sodium 140 mEq/L (136-145); Total Protein 7.2 g/dL (6.4-8.9); eGFR For African Americans > 60 (> 60); eGFR For Non-African Americans > 60 (> 60)
[2017-11-20] MEDS: Albuterol 2.5 MG/3 ML NEBULIZER IH ONE (14:23)
[2017-11-20] MEDS ORDERED: Azithromycin 500 MG in D5% in Water 250 ML IVPB ONE (14:29)
[2017-11-20] MEDS ORDERED: Vancomycin 1,000 MG in D5% in Water 250 ML IVPB ONE (14:30)
[2017-11-20] MEDS ORDERED: Cefepime HCl 2,000 MG in Water for inj. (sterile) 20 ML 20 ML IVP STA (14:30)
[2017-11-20] MEDS ORDERED: Naloxone 0.4 MG/ML INJ IVP PRN (16:15)
--- NOTE | 2017-11-20 16:45 | Pulmonology Consult Note ---
Date of Encounter: 11/20/17 Time of Encounter: 16:30 Assessment and Plan (1) Hemoptysis, unspecified Current Visit: Yes Status: Acute Patient has hemoptysis most likely from COPD exacerbation, however she has significant history of smoking can also abnormal CT chest and airway inspection is recommended if her respiratory status will tolerate the procedure. I have explained to her all the risks, alternatives, benefits of the procedure and she agreed to have it done and will plan to do it tomorrow. The nurse was present during examination and interviewing patients. Thank you very much for the consultation. (2) Acute exacerbation of chronic obstructive airways disease Current Visit: Yes Status: Acute Patient is on appropriate treatment with systemic steroid and antibiotics with bronchodilators. (3) Tobacco abuse Current Visit: No Status: Chronic Patient is advised to quit smoking. History of Present Illness Consult date: 11/20/17 Requesting physician: Raymundo Hutchinson Reason for consult: COPD, other (Hemoptysis) Chief complaint: Hemoptysis History of present illness: This is a pleasant 62-year-old female with a diagnosis of COPD on long-term oxygen therapy and she presented to emergency room having worsening cold symptoms for the past month and denies any fever and she also has productive cough and yellow-green sputum and also noticed spots of blood with teaspoon bright red with coughing. Patient has significant history of smoking and she also complains of weight loss. She denies any significant chest pain at this time but she has dyspnea. She stated that hemoptysis is on and off for the past week and she has history of hospitalization in about 3 months ago. Past Med Surg Social Fam HX - Past Medical History Medical history: COPD, coronary artery disease, DVT, GERD, hyperlipidemia, hypertension, myocardial infarction, peripheral artery disease, RA Psychiatric history: depression - Past Surgical History Surgical History: cholecystectomy, coronary bypass (CABG), hysterectomy - Social History Smoking Status: Current every day smoker Packs per day: 1/2 Smokeless Tobacco Status: No Alcohol use: none Drug use: none - Family History Brother Adopted: No Living Status: Grandfather Living Status: Hx Family Cancer: Yes (lung) Paternal Living Status: Hx Family Cancer: Yes (lung) Mother Living Status: Hx Family Cardiac Disorders: Yes (CHF) Hx Family Respiratory Disorders: Yes (COPD) Hx Family Cancer: No Father Adopted: No Living Status: Hx Family Cardiac Disorders: Yes (PR,) Hx Family Endocrine Disorder: Yes (diabetes) Medications and Allergies ALPRAZolam [Xanax 1 MG Tablet] 2 mg PO QID 02/16/16 [History] Albuterol Sulfate [Proair Respiclick] 2 puff IH Q4H PRN 02/16/16 [History] Aspirin 325 mg PO DAILY 02/16/16 [History] Budesonide/Formoterol 160/4.5 [Symbicort 160/4.5] 2 puff IH BID 02/16/16 [ History] Dronabinol [Marinol] 5 mg PO BID 02/16/16 [History] Ergocalciferol (VITAMIN D2) [Vitamin D2 (50,000 UNIT)] 50,000 unit PO QWEEK 07/24 [History] Furosemide [Lasix] 40 mg PO DAILY 02/16/16 [History] Oxycodone HCl 15 mg PO Q6H PRN 02/16/16 [History] Potassium Chloride [K-Tab ER] 20 meq PO BID 02/16/16 [History] Promethazine [Phenergan] 25 mg PO Q6HR 02/16/16 [History] Roflumilast [Daliresp] 500 mcg PO DAILY 02/16/16 [History] Sertraline [Zoloft] 125 mg PO DAILY 02/16/16 [History] Tiotropium [Spiriva] 18 mcg IH DAILY 02/16/16 [History] amLODIPine [Norvasc] 2.5 mg PO DAILY 02/16/16 [History] Ipratropium/Albuterol Neb [Duoneb] 3 ml IH QID 09/06/17 [History] Ondansetron [Zofran] 4 mg PO BID PRN 09/06/17 [History] Oxygen 1 each IH AD 09/06/17 [History] Pyridoxine HCl [Vitamin B-6] 200 mg PO DAILY 09/06/17 [History] Riboflavin 400 mg PO QDPC 09/06/17 [History] Albuterol Neb [Proventil Neb] 2.5 mg IH Q4H PRN #120 inhsol 09/11/17 [Rx] Pantoprazole Sodium [Protonix] 40 mg PO DAILY #0 09/11/17 [Rx] 3 Allergy/AdvReac Type Severity Reaction Status Date / Time Cyclobenzaprine AdvReac Irritable Verified 11/20/17 10:58 [From Flexeril] gabapentin AdvReac Irritable Verified 11/20/17 10:58 All Systems: A 10-system review of systems was performed and is negative for pertinent findings except as documented above in the HPI. Physical Examination Vital Signs: Vital Signs, Last 4 Hours Temp Pulse Resp BP Pulse Ox 11/20/17 15:51 97.5 F L 70 16 138/82 95 11/20/17 15:07 66 18 128/68 95 General appearance: appears uncomfortable Eyes: nonicteric ENT: oropharynx moist Mallampati (class): 2 Neck: supple, no lymphadenopathy Effort: mildly labored Inspection: hyperextended Auscultation: bilateral: rhonchi Percussion: bilateral: not dull Cardiovascular: regular rate and rhythm Gastrointestinal: normoactive bowel sounds, non-distended Extremities: no cyanosis normal mental status, non-focal exam anxious Results - Laboratory Findings CBC and BMP: 11/20/17 11:56 11/20/17 11:56 PT/INR, D-dimer PT 10.4 Seconds (9.4-12.1) 11/20/17 11:56 D-Dimer 584 ng/mLFEU (0-500) H 11/20/17 11:56 Abnormal lab findings: Abnormal lab results RBC 5.69 M/mcL (3.82-4.97) H 11/20/17 11:56 Hct 47.6 % (35.3-44.9) H 11/20/17 11:56 MCH 25.3 pg (28.0-33.3) L 11/20/17 11:56 MCHC 30.3 g/dL (31.6-35.5) L 11/20/17 11:56 RDW 17.6 % (11.5-14.5) H 11/20/17 11:56 D-Dimer 584 ng/mLFEU (0-500) H 11/20/17 11:56 Carbon Dioxide 33 mEq/L (23-29) H 11/20/17 11:56 - Diagnostic Findings CT scan - chest: report reviewed, image reviewed - Clinical Findings Intake & Output: Intake & Output 0211/20/17 11/20/17 07:59 15:59 23:59 Intake Total Balance Consult Discharge Plan - Plan Referrals: Theo Mahan MD [Primary Care Provider] -
--- NOTE | 2017-11-20 16:57 | Internal Med History&Physical ---
Date of Encounter: 11/20/17 Time of Encounter: 16:53 Assessment and Plan (1) Acute exacerbation of chronic obstructive airways disease Current visit: Yes Status: Acute The patient presents today with hypoxia. She has acute on chronic respiratory failure and wears O2 at home. She presented to emergency department today with worsening shortness of breath, fatigue and hypoxia and hemoptysis. She reports this is ongoing over the past month and getting worse over the last week. Additionally she reports she was recently on antibiotics and had a hospital stay in September. -SOB, hypoxia and hemoptysis most likely due to an acute exacerbation of COPD and HCAP. She also has an abnormal CT of the chest, showing showing patchy reticulonodular opacities with focal thickening of the posterior margin of the right lower lobe pneumatocele. Findings represent atypical infectious process but a neoplasm cannot be ruled out. - Blood Cx - Urine Legionella antigenm, strep pneumo and mycoplasma - Antibiotics cefepime, azithromycin and vancomycin with PT to dose - CBCD, CMP in AM - Tylenol 650 mg PO q 4-6 hr PRN pain or fever - Resume home medications - Heparin 5000 U SQ BID - Respiratory support per NC; titrate to maintain Spo2 >92% - Continuous tele, and Spo2 monitoring - Pulmonary consulted - DuoNeb's - Steroids 40 mg IVP every 6 hours (2) HCAP (healthcare-associated pneumonia) Current visit: Yes Status: Acute See plan above (3) Acute and chronic respiratory failure with hypoxia Current visit: Yes Status: Acute See plan above (4) Hemoptysis, unspecified Current visit: Yes Status: Acute See plan above (5) Abnormal chest CT Current visit: Yes Status: Acute Patchy reticulonodular opacities with focal thickening of the posterior margin of the right lower lobe pneumatocele. Findings may represent atypical infectious process. Neoplasm is not completely excluded. Appropriate follow-up recommended therefore. -Consult pulmonology-spoke with Dr. Gaines who is seen the patient. Plan is to undergo bronchoscopy tomorrow (6) Tobacco abuse Current visit: Yes Status: Chronic Discussed smoking cessation, nicotine patch (7) DVT prophylaxis Current visit: Yes Status: Acute EPCD Internal Medicine - H&P: HPI Chief complaint: Fatigue, shortness of breath, hypoxia Admitted From: Home Plans for Post Hospital Care: Home History of present illness: Ms. Rahman is a 62 year old female with a PMH of COPD, coronary artery disease, GERD, hyperlipidemia, myocardial infarction, peripheral artery disease, RA. She is long-term history of COPD and has been on oxygen therapy for quite some time. She presented to [facility] today after having worsening fatigue, shortness of breath and hypoxia, for the past month. She reports has been getting significantly worse over the last week. Additionally, she notes bright red blood in her sputum measuring about teaspoon amount every time she coughs. She has a significant smoking history and is also complaining of some weight loss. She denies any fevers, chills, sore throat, chest pain, unilateral extremity swelling or pain, abdominal pain, nausea, vomiting, or diarrhea. Past Med Surg Social Fam HX - Past Medical History Medical history: COPD, coronary artery disease, DVT, GERD, hyperlipidemia, hypertension, myocardial infarction, peripheral artery disease, RA Psychiatric history: depression - Past Surgical History Surgical History: cholecystectomy, coronary bypass (CABG), hysterectomy - Social History Smoking Status: Current every day smoker Packs per day: 1/2 Smokeless Tobacco Status: No Alcohol use: none Drug use: none - Family History Brother Adopted: No Living Status: Mother Living Status: Hx Family Cardiac Disorders: Yes (CHF) Hx Family Respiratory Disorders: Yes (COPD) Hx Family Cancer: No Father Adopted: No Living Status: Hx Family Cardiac Disorders: Yes ([place],) Hx Family Endocrine Disorder: Yes (diabetes) Internal Medicine - H&P: Meds ALPRAZolam [Xanax 1 MG Tablet] 2 mg PO QID 02/16/16 [History] Albuterol Sulfate [Proair Respiclick] 2 puff IH Q4H PRN 02/16/16 [History] Aspirin 325 mg PO DAILY 02/16/16 [History] Budesonide/Formoterol 160/4.5 [Symbicort 160/4.5] 2 puff IH BID 02/16/16 [ History] Dronabinol [Marinol] 5 mg PO BID 02/16/16 [History] Ergocalciferol (VITAMIN D2) [Vitamin D2 (50,000 UNIT)] 50,000 unit PO QWEEK 07/24 [History] Furosemide [Lasix] 40 mg PO DAILY 02/16/16 [History] Oxycodone HCl 15 mg PO Q6H PRN 02/16/16 [History] Potassium Chloride [K-Tab ER] 20 meq PO BID 02/16/16 [History] Promethazine [Phenergan] 25 mg PO Q6HR 02/16/16 [History] Roflumilast [Daliresp] 500 mcg PO DAILY 02/16/16 [History] Sertraline [Zoloft] 125 mg PO DAILY 02/16/16 [History] Tiotropium [Spiriva] 18 mcg IH DAILY 02/16/16 [History] amLODIPine [Norvasc] 2.5 mg PO DAILY 02/16/16 [History] Ipratropium/Albuterol Neb [Duoneb] 3 ml IH QID 09/06/17 [History] Ondansetron [Zofran] 4 mg PO BID PRN 09/06/17 [History] Oxygen 1 each IH AD 09/06/17 [History] Pyridoxine HCl [Vitamin B-6] 200 mg PO DAILY 09/06/17 [History] Riboflavin 400 mg PO QDPC 09/06/17 [History] Albuterol Neb [Proventil Neb] 2.5 mg IH Q4H PRN #120 inhsol 09/11/17 [Rx] Pantoprazole Sodium [Protonix] 40 mg PO DAILY #0 09/11/17 [Rx] 3 Allergy/AdvReac Type Severity Reaction Status Date / Time Cyclobenzaprine AdvReac Irritable Verified 11/20/17 10:58 [From Flexeril] gabapentin AdvReac Irritable Verified 11/20/17 10:58 All Systems PM: A 10-system review of systems was performed and is negative for pertinent findings except as documented above in the HPI. - Constitutional Constitutional: fatigue, lethargy, weakness, weight loss, no chills, no fever(s) , no night sweats - EENT Eyes: no change in vision, no discharge, no pain, no photophobia Ears: no ear discharge, no ear pain, no tinnitus Nose, mouth and throat: no dysphagia, no nasal discharge, no neck pain, no sore throat - Cardiovascular Cardiovascular ROS IM: dyspnea, dyspnea on exertion, no chest pain, no edema - Respiratory Respiratory: cough, dyspnea, hemoptysis, dyspnea on exertion, excessive phlegm production, change in phlegm color, no wheezing, no pain on inspiration, no chest congestion, no pain with cough - Gastrointestinal Gastrointestinal: no abdominal pain, no diarrhea, no hematemesis, no hematochezia, no melena, no nausea, no vomiting - Genitourinary Genitourinary: no change in urinary stream, no dysuria, no flank pain, no hematuria - Musculoskeletal Musculoskeletal ROS IM: no numbness, no tingling - Integumentary Integumentary IM: no rash, no unusual bruising - Neurological Neurological ROS: no confusion, no convulsions, no focal weakness, no numbness, no tingling, no tremor(s) - Constitutional Vitals: Temp Pulse Resp BP Pulse Ox 97.5 F L 70 16 138/82 95 11/20/17 15:51 11/20/17 15:51 11/20/17 15:51 11/20/17 15:51 11/20/17 16:42 General appearance: Present: cooperative, mild distress, A&O X 3, answers questions appropriately - Head Head exam: Present: atraumatic, normocephalic - Eye Eye exam: Present: PERRL, conjuntiva pink, sclera anicteric Pupils: Present: PERRL - Neck Neck exam general surgery: Present: supple, trachea midline. Absent: lymphadenopathy - Respiratory Respiratory exam: Present: prolonged expiratory phase, respiratory distress, rhonchi, wheezes, tachypnea. Absent: chest wall tenderness, decreased breath sounds - Cardiovascular Cardiovascular exam: Present: RRR, +S1, +S2. Absent: diastolic murmur, gallop, rubs, systolic murmur - GI/Abdominal GI/Abdominal exam: Present: normal bowel sounds, soft, no peritoneal signs. Absent: distended, tenderness - Extremities Exam Extremities exam: Present: warm, radial pulses palpable and symmetrical. Absent : calf tenderness, cyanotic, pedal edema - Neurological Exam Additional comments: Patient has noticeable tremors in her bilateral upper extremities. She reports that she has had these for approximately one year but they have been getting worse over the last month. Internal Med - H&P Results - Labs CBC & Chem 7: 11/20/17 11:56 11/20/17 11:56 - EKG Data -: EKG Interpreted by Myself EKG shows normal: sinus rhythm Rate: normal - EKG Data EKG comments: NSR, rate of [address] elevation or depression noted 11/20/17 17:05 - Impressions Impressions Chest X-Ray 11/20/17 11:20 IMPRESSION: Question of COPD with chronic lung changes. Probable interstitial lung disease at the bilateral lung bases, stable. D/ / Fidel Martinez MD / Fidel Martinez MD Interpreting Provider: Fidel Martinez MD Chest CTA 11/20/17 12:45 IMPRESSION: 1. No acute pulmonary emboli, aortic dissection or aneurysm. 2. Patchy reticulonodular opacities with focal thickening of the posterior margin of the right lower lobe pneumatocele. Findings may represent atypical infectious process. Neoplasm is not completely excluded. Appropriate follow-up recommended therefore. D/ / Zhen Vyas MD / Zhen Vyas MD Interpreting Provider: Zhen Vyas MD
[2017-11-20] MEDS: ALPRAZolam 1 MG TABLET PO SCH ×2 (17:26→21:12)
[2017-11-20] MEDS: *HR* OxyCODONE Immed Rel 15 MG TABLET PO PRN (17:26)
[2017-11-20] MEDS: MethylPREDNISolone 40 MG/ML VIAL IVP SCH (17:27)
[2017-11-20] MEDS: Nicotine 21 MG PATCH.TD24 TD SCH (17:49)
[2017-11-20] MEDS: Ipratropium/Albuterol Neb 3 ML IH SCH (20:37)
[2017-11-21] MEDS: *HR* OxyCODONE Immed Rel 15 MG TABLET PO PRN ×3 (00:10→14:50)
[2017-11-21] MEDS: MethylPREDNISolone 40 MG/ML VIAL IVP SCH ×5 (00:11→23:58)
[2017-11-21] MEDS: Ipratropium/Albuterol Neb 3 ML IH SCH ×7 (00:15→23:49)
[2017-11-21] MEDS ORDERED: Vancomycin 1,000 MG in D5% in Water 250 ML IVPB SCH (03:00)
[2017-11-21] MEDS: Cefepime HCl 2,000 MG in Water for inj. (sterile) 20 ML 20 ML IVP SCH ×2 (03:14→14:36)
[2017-11-21 06:44] LABS: Basophils % 0.1 %; Hematocrit 41.8 % (35.3-44.9); Hemoglobin 13.1 g/dL (11.5-15.4); Immature Granulocytes % 0.4 % (0-4); Lymphocytes # 1.1 K/mcL (0.6-4.6); Lymphocytes % 9.3 %; Mean Corpuscular HGB Conc 31.3 g/dL (31.6-35.5); Mean Corpuscular Hemoglobin 25.7 pg (28.0-33.3); Monocytes # 0.4 K/mcL (0.0-1.3); Monocytes % 3.8 %; Neutrophils # 9.8 K/mcL (1.6-8.9); Nucleated Red Blood Cells 0.2 /100 WBC (0); Platelet Count 360 K/mcL (140-400); Red Cell Distribution Width 16.9 % (11.5-14.5); Segmented Neutrophils % 86.4 %
[2017-11-21 06:49] LABS: BUN/Creatinine Ratio 19 (6-26); Blood Urea Nitrogen 11 mg/dL (8-23); Calcium 9.5 mg/dL (8.6-10.3); Carbon Dioxide 26 mEq/L (23-29); Chloride 103 mEq/L (98-107); Glucose 124 mg/dL (70-105); Osmolality,Calculated 283 (280-300); Potassium 4.2 mEq/L (3.5-5.1); Sodium 136 mEq/L (136-145); eGFR For African Americans > 60 (> 60); eGFR For Non-African Americans > 60 (> 60)
[2017-11-21] MEDS: Tiotropium 18 MCG inhalation IH SCH (08:04)
[2017-11-21] MEDS: ALPRAZolam 1 MG TABLET PO SCH ×4 (08:30→20:29)
--- NOTE | 2017-11-21 08:30 | Internal Med Progress Note ---
Date of Encounter: 11/21/17 Time of Encounter: 08:27 - Assessment and plan (1) HCAP (healthcare-associated pneumonia) Current Visit: Yes Status: Acute Assessment and plan: Continue cefepime and azithromycin day #2, discontinue vancomycin IV CTA of the chest showed: 1. No acute pulmonary emboli, aortic dissection or aneurysm. 2. Patchy reticulonodular opacities with focal thickening of the posterior margin of the right lower lobe pneumatocele. Findings may represent atypical infectious process. Neoplasm is not completely excluded. (2) Hemoptysis, unspecified Current Visit: Yes Status: Acute Assessment and plan: Bronchoscopy today (3) Acute exacerbation of chronic obstructive airways disease Current Visit: Yes Status: Acute Assessment and plan: Chronic respiratory failure associated with acute COPD exacerbation secondary to healthcare associated pneumonia Continue Solu-Medrol, duo nebs and oxygen therapy. Antibiotics as described above (4) Neuropathy Current Visit: Yes Status: Acute Assessment and plan: Consider Lyrica Complain of chronic bilateral hand pain (5) Tobacco abuse Current Visit: Yes Status: Chronic Assessment and plan: Smoking cessation counseling given for 5 min , nicotine patch (6) Osteoarthritis Current Visit: Yes Status: Acute Assessment and plan: The patient does not have history of rheumatoid arthritis Qualifiers: Osteoarthritis location: hand Osteoarthritis type: unspecified Laterality : bilateral Qualified Code(s): M19.041 - Primary osteoarthritis, right hand; M19.042 - Primary osteoarthritis, left hand; M19.042 - Primary osteoarthritis, left hand - Subjective Interval history: Still coughing up blood and small amounts, denies any chest pain other than when coughing, no fevers overnight, no abdominal pain, no diarrhea or dysuria - Constitutional Vitals: Temp Pulse Resp BP Pulse Ox 98.0 F 62 18 122/72 97 11/21/17 06:40 11/21/17 06:40 11/21/17 08:05 11/21/17 06:40 11/21/17 08:05 General appearance: Present: cooperative, mild distress, A&O X 3, answers questions appropriately - Head Head exam: Present: atraumatic, normocephalic - Eye Eye exam: Present: PERRL, conjuntiva pink, sclera anicteric Pupils: Present: PERRL - Neck Neck exam general surgery: Present: supple, trachea midline. Absent: lymphadenopathy - Respiratory Respiratory exam: Present: CTAB, wheezes (Diffuse wheezing). Absent: accessory muscle use, rales, rhonchi - Cardiovascular Cardiovascular exam: Present: RRR, +S1, +S2. Absent: diastolic murmur, gallop, rubs, systolic murmur - GI/Abdominal GI/Abdominal exam: Present: normal bowel sounds, soft, no peritoneal signs. Absent: distended, tenderness - Extremities Exam Extremities exam: Present: warm, radial pulses palpable and symmetrical. Absent : calf tenderness, cyanotic, pedal edema - Neurological Exam Neurological exam: Present: CN II-XII intact, oriented X3, no focal deficits. Absent: pronater drift, facial droop, speech deficit - Skin Skin exam: Present: dry, intact Internal Medicine: Result - Labs CBC & Chem 7: 11/21/17 05:57 11/21/17 05:57 Labs: Short CBC 11/21/17 Range/Units 05:57 WBC 11.3 H D (4.3-11.1) K/mcL Hgb 13.1 (11.5-15.4) g/dL Hct 41.8 (35.3-44.9) % Plt Count 360 (140-400) K/mcL Neutrophils # 9.8 H (1.6-8.9) K/mcL BMP 11/21/17 05:57 Sodium 136 Potassium 4.2 Chloride 103 Carbon Dioxide 26 BUN 11 Creatinine 0.57 L Glucose 124 H Calcium 9.5 - ABG Interpretation ABG results: PT/INR, D-dimer PT 10.4 Seconds (9.4-12.1) 11/20/17 11:56 D-Dimer 584 ng/mLFEU (0-500) H 11/20/17 11:56 - VTE Documentation of Mechanical Device: Intermittent pneumatic compression device Consult Discharge Plan - Plan Referrals: Theo Mahan MD [Primary Care Provider] -
[2017-11-21] MEDS ORDERED: Aminoglycoside Consult 1 EACH MC ONE (08:36)
[2017-11-21] MEDS ORDERED: *HR* Midazolam HCl 5 MG/5 ML VIAL IVP ONE ×2 (08:50→09:14)
[2017-11-21] MEDS ORDERED: *HR* FentaNYL (PF) 100 MCG/2 ML VIAL ONE (08:51)
[2017-11-21] MEDS ORDERED: Lidocaine Viscous Oral Soln 15 ML SOLUTION ONE (08:51)
[2017-11-21] MEDS ORDERED: Furosemide 40 MG TABLET PO SCH (09:00)
--- NOTE | 2017-11-21 09:10 | Electrocardiograph Report ---
[facility] Test Date: 2017-11-20 Pat Name: Aida Rahman Department: 104 Room: 2A47 Gender: F Psychiatric Np: : 1955 Requested By: Jerome Vitale Order Number: [id number] Rosie MD: Saeed Granados MD Measurements Intervals [place] Rate: 81 P: 75 [place]: 143 QRS: 60 QRSD: 97 T: 61 QT: 382 QTc: 419 Interpretive Statements SINUS RHYTHM INCOMPLETE RIGHT BUNDLE BRANCH BLOCK WARNING: DATA QUALITY MAY AFFECT INTERPRETATION Electronically Signed On 11-21-2017 9:08:46 EST by Saeed Granados MD
[2017-11-21] MEDS ORDERED: Lidocaine Viscous Oral Soln 15 ML SOLUTION MM ONE (09:14)
[2017-11-21] MEDS ORDERED: Tetracaine/Benzocaine/Butamben 200MG/SPRAY (100SPY/BOT) MM ONE (09:14)
[2017-11-21] MEDS ORDERED: *HR* FentaNYL (PF) 100 MCG/2 ML VIAL IVP ONE (09:14)
[2017-11-21] MEDS ORDERED: *HR* EPINEPHrine 1 MG/10 ML SYRINGE INTRATRACH PRN (09:14)
[2017-11-21] MEDS ORDERED: Albuterol 2.5 MG/3 ML NEBULIZER IH ONE (09:14)
--- NOTE | 2017-11-21 09:17 | Pre-Sedation Evaluation ---
Pre-sedation evaluation - Pre-sedation checklist Date of procedure: 11/21/17 Procedure: bronch Recent Vitals: Last Vital Signs Temp 98.0 F 11/21/17 06:40 Pulse 62 11/21/17 09:14 Resp 18 11/21/17 09:14 BP 119/74 11/21/17 09:14 Pulse Ox 97 11/21/17 09:01 H&P (including ROS) documented in medical record: Yes Previous reaction to sedatives/anesthetics: No Dietary Status: NPO after Midnight Dentition: dentures removed Possible difficult airway: No ASA Classification *see protocol: CLASS III-Severe systemic disease Plan of Care: Pt appropriate candidate for procedure/moderate/conscious sedation , Risks/benefits of procedure/sedation discussed w/ patient/family
[2017-11-21] MEDS: Albuterol 2.5 MG/3 ML NEBULIZER IH ONE (09:54)
[2017-11-21] MEDS: 0.9 % Sodium Chloride 1,000 ML IVC SCH (11:12)
[2017-11-21 12:35] LABS: Source of Body Fluid RLL BAL
[2017-11-21] MEDS: Aspirin 325 MG TABLET PO SCH (12:38)
[2017-11-21] MEDS: Pyridoxine (B-6) 50 MG TABLET PO SCH (12:38)
[2017-11-21] MEDS: Nicotine 21 MG PATCH.TD24 TD SCH (12:39)
[2017-11-21] MEDS: Azithromycin 250 MG TABLET PO SCH (12:39)
[2017-11-21] MEDS: amLODIPine 5 MG TABLET PO SCH (12:39)
[2017-11-21] MEDS: (Roflumilast [Daliresp] 500 MCG) PO SCH (12:40)
[2017-11-21] MEDS: RIBOFLAVIN 400 MG PO SCH (12:40)
[2017-11-21 19:48] LABS: Appearance of Body Fluid Slightly Hazy (Clear); Volume of Body Fluid 8 mL
[2017-11-22] MEDS: 0.9 % Sodium Chloride 1,000 ML IVC SCH ×3 (00:02→08:23)
[2017-11-22] MEDS: Cefepime HCl 2,000 MG in Water for inj. (sterile) 20 ML 20 ML IVP SCH ×2 (03:49→16:28)
[2017-11-22] MEDS: Ipratropium/Albuterol Neb 3 ML IH SCH ×6 (04:38→23:17)
[2017-11-22] MEDS: MethylPREDNISolone 40 MG/ML VIAL IVP SCH ×4 (06:02→22:37)
[2017-11-22 07:14] LABS: Hematocrit 37.5 % (35.3-44.9); Hemoglobin 11.7 g/dL (11.5-15.4); Mean Corpuscular HGB Conc 31.2 g/dL (31.6-35.5); Mean Corpuscular Hemoglobin 25.7 pg (28.0-33.3); Mean Corpuscular Volume 82.2 fL (83.0-100.0); Mean Platelet Volume 10.8 fL (9.4-12.4); Platelet Count 276 K/mcL (140-400); Red Blood Count 4.56 M/mcL (3.82-4.97); Red Cell Distribution Width 17.2 % (11.5-14.5)
[2017-11-22 07:29] LABS: BUN/Creatinine Ratio 25 (6-26); Blood Urea Nitrogen 12 mg/dL (8-23); Calcium 8.9 mg/dL (8.6-10.3); Carbon Dioxide 27 mEq/L (23-29); Chloride 109 mEq/L (98-107); Glucose 115 mg/dL (70-105); Osmolality,Calculated 289 (280-300); Potassium 4.3 mEq/L (3.5-5.1); Sodium 139 mEq/L (136-145); eGFR For African Americans > 60 (> 60); eGFR For Non-African Americans > 60 (> 60)
[2017-11-22] MEDS: Tiotropium 18 MCG inhalation IH SCH (08:13)
[2017-11-22] MEDS: Nicotine 21 MG PATCH.TD24 TD SCH (08:18)
[2017-11-22] MEDS: Aspirin 325 MG TABLET PO SCH (08:18)
[2017-11-22] MEDS: Azithromycin 250 MG TABLET PO SCH (08:19)
[2017-11-22] MEDS: ALPRAZolam 1 MG TABLET PO SCH ×2 (08:19→22:37)
[2017-11-22] MEDS: amLODIPine 5 MG TABLET PO SCH (08:19)
[2017-11-22] MEDS: (Roflumilast [Daliresp] 500 MCG) PO SCH (08:20)
[2017-11-22] MEDS: Pyridoxine (B-6) 50 MG TABLET PO SCH (08:20)
[2017-11-22] MEDS: RIBOFLAVIN 400 MG PO SCH (08:20)
--- NOTE | 2017-11-22 08:28 | Internal Med Progress Note ---
Date of Encounter: 11/22/17 Time of Encounter: 08:25 - Assessment and plan (1) HCAP (healthcare-associated pneumonia) Current Visit: Yes Status: Acute Assessment and plan: Acute on chronic hypoxic respiratory failure secondary to acute COPD exacerbation due to healthcare associated pneumonia present upon admission Continue cefepime and azithromycin day #3, discontinued vancomycin IV on day 2 CTA of the chest showed: 1. No acute pulmonary emboli, aortic dissection or aneurysm. 2. Patchy reticulonodular opacities with focal thickening of the posterior margin of the right lower lobe pneumatocele. Findings may represent atypical infectious process. Neoplasm is not completely excluded. Pulmonary services recommendations appreciated (2) Acute exacerbation of chronic obstructive airways disease Current Visit: Yes Status: Acute Assessment and plan: Chronic respiratory failure associated with acute COPD exacerbation secondary to healthcare associated pneumonia Continue Solu-Medrol, duo nebs and oxygen therapy. Antibiotics as described above (3) Hemoptysis, unspecified Current Visit: Yes Status: Acute Assessment and plan: Bronchoscopy showed mucopurulent thick secretions, acute mucosal inflammation throughout the tract of bronchial tree, bronchitic changes were found BAL pathology pending (4) Neuropathy Current Visit: Yes Status: Acute Assessment and plan: Consider Anita Complain of chronic bilateral hand pain (5) Tobacco abuse Current Visit: Yes Status: Chronic Assessment and plan: Smoking cessation counseling given for 5 min , nicotine patch (6) Osteoarthritis Current Visit: Yes Status: Acute Assessment and plan: The patient does not have history of rheumatoid arthritis Qualifiers: Osteoarthritis location: hand Osteoarthritis type: unspecified Laterality : bilateral Qualified Code(s): M19.041 - Primary osteoarthritis, right hand; M19.042 - Primary osteoarthritis, left hand; M19.042 - Primary osteoarthritis, left hand - Subjective Interval history: Still vry SOB and coughing up blood in small amounts, has left pleuritis chest pain when coughing, no fevers overnight, no abdominal pain, no diarrhea or dysuria - Constitutional Vitals: Temp Pulse Resp BP Pulse Ox 97.3 F L 50 18 113/65 98 11/22/17 07:00 11/22/17 07:00 11/22/17 08:15 11/22/17 07:00 11/22/17 08:15 General appearance: Present: cooperative, mild distress, A&O X 3, answers questions appropriately - Head Head exam: Present: atraumatic, normocephalic - Eye Eye exam: Present: PERRL, conjuntiva pink, sclera anicteric Pupils: Present: PERRL - Neck Neck exam general surgery: Present: supple, trachea midline. Absent: lymphadenopathy - Respiratory Respiratory exam: Present: CTAB, wheezes (Diffuse wheezing). Absent: accessory muscle use, rales, rhonchi - Cardiovascular Cardiovascular exam: Present: RRR, +S1, +S2. Absent: diastolic murmur, gallop, rubs, systolic murmur - GI/Abdominal GI/Abdominal exam: Present: normal bowel sounds, soft, no peritoneal signs. Absent: distended, tenderness - Extremities Exam Extremities exam: Present: warm, radial pulses palpable and symmetrical. Absent : calf tenderness, cyanotic, pedal edema - Neurological Exam Neurological exam: Present: CN II-XII intact, oriented X3, no focal deficits. Absent: pronater drift, facial droop, speech deficit - Skin Skin exam: Present: dry, intact Internal Medicine: Result - Labs CBC & Chem 7: 11/22/17 06:36 11/22/17 06:36 Labs: Short CBC 11/22/17 Range/Units 06:36 WBC 10.1 (4.3-11.1) K/mcL Hgb 11.7 (11.5-15.4) g/dL Hct 37.5 (35.3-44.9) % Plt Count 276 (140-400) K/mcL [facility] 11/22/17 06:36 Sodium 139 Potassium 4.3 Chloride 109 H Carbon Dioxide 27 BUN 12 Creatinine 0.48 L Glucose 115 H Calcium 8.9 - ABG Interpretation ABG results: PT/INR, D-dimer PT 10.4 Seconds (9.4-12.1) 11/20/17 11:56 D-Dimer 584 ng/mLFEU (0-500) H 11/20/17 11:56 - VTE Documentation of Mechanical Device: Intermittent pneumatic compression device Consult Discharge Plan - Plan Referrals: Theo Mahan MD [Primary Care Provider] -
[2017-11-22] MEDS ORDERED: ALPRAZolam 1 MG TABLET PO PRN (11:01)
[2017-11-22] MEDS ORDERED: Furosemide 40 MG TABLET PO SCH (11:15)
[2017-11-22] MEDS ORDERED: Furosemide 40 MG/4 ML VIAL ONE (13:31)
[2017-11-22] MEDS ORDERED: Furosemide 40 MG/4 ML VIAL IVP ONE ×2 (13:31→13:51)
[2017-11-22] MEDS ORDERED: *HR* LORazepam 2 MG/ML VIAL IVP PRN (13:53)
[2017-11-22 14:02] LABS: ABG Base Excess 0 mEq/L (-2 to 3); ABG HCO3 25 mEq/L (21-27); ABG Oxygen Saturation 97 % (95-98); ABG PCO2 40 mmHg (35-45); ABG PH 7.39 pH Units (7.32-7.45); ABG PO2 92 mmHg (85-104); ABG TCO2 26 mEq/L (20-26)
[2017-11-22] MEDS: *HR* OxyCODONE Immed Rel 15 MG TABLET PO PRN (16:42)
[2017-11-22] MEDS: Furosemide 20 MG/2 ML VIAL IVP SCH (18:06)
[2017-11-23] MEDS: Ipratropium/Albuterol Neb 3 ML IH SCH ×6 (03:22→23:05)
[2017-11-23] MEDS: Cefepime HCl 2,000 MG in Water for inj. (sterile) 20 ML 20 ML IVP SCH ×2 (05:40→15:07)
[2017-11-23] MEDS: MethylPREDNISolone 40 MG/ML VIAL IVP SCH ×3 (05:41→16:30)
--- NOTE | 2017-11-23 07:40 | Discharge Summary ---
Date of Encounter: 11/23/17 Time of Encounter: 07:30 - Discharge Diagnosis (1) HCAP (healthcare-associated pneumonia) Priority: Primary Status: Acute Comments: Acute on chronic hypoxic respiratory failure secondary to acute COPD exacerbation due to healthcare associated pneumonia present upon admission, worsened by volume overload that responded to Lasix (2) Acute exacerbation of chronic obstructive airways disease Priority: Primary Status: Acute (3) Hemoptysis, unspecified Priority: Primary Status: Acute Comments: likely secondary to Pneumonia (4) Neuropathy Priority: Secondary Status: Acute (5) Tobacco abuse Priority: Secondary Status: Chronic (6) Osteoarthritis Priority: Secondary Status: Acute Qualifiers: Osteoarthritis location: hand Osteoarthritis type: unspecified Laterality : bilateral Qualified Code(s): M19.041 - Primary osteoarthritis, right hand; M19.042 - Primary osteoarthritis, left hand; M19.042 - Primary osteoarthritis, left hand - Discharge Medications Prescriptions: ALPRAZolam [Xanax 1 MG Tablet] 2 mg PO QID PRN 7 Days #28 tablet PRN Reason: Anxiety Levofloxacin [Levaquin] 750 mg PO DAILY #5 tablet Oxycodone HCl 15 mg PO Q6H PRN 7 Days #28 tablet PRN Reason: Pain predniSONE [PredniSONE] 10 mg PO DAILY 20 Days tablet Home Medications: Albuterol Sulfate [Proair Respiclick] 2 puff IH Q4H PRN 02/16/16 [History] Aspirin 325 mg PO DAILY 02/16/16 [History] Budesonide/Formoterol 160/4.5 [Symbicort 160/4.5] 2 puff IH BID 02/16/16 [ History] Dronabinol [Marinol] 5 mg PO BID 02/16/16 [History] Ergocalciferol (VITAMIN D2) [Vitamin D2 (50,000 UNIT)] 50,000 unit PO QWEEK 07/24 [History] Furosemide [Lasix] 40 mg PO DAILY 02/16/16 [History] Potassium Chloride [K-Tab ER] 20 meq PO BID 02/16/16 [History] Promethazine [Phenergan] 25 mg PO Q6HR 02/16/16 [History] Roflumilast [Daliresp] 500 mcg PO DAILY 02/16/16 [History] Sertraline [Zoloft] 125 mg PO DAILY 02/16/16 [History] Tiotropium [Spiriva] 18 mcg IH DAILY 02/16/16 [History] amLODIPine [Norvasc] 2.5 mg PO DAILY 02/16/16 [History] Ipratropium/Albuterol Neb [Duoneb] 3 ml IH QID 09/06/17 [History] Ondansetron [Zofran] 4 mg PO BID PRN 09/06/17 [History] Oxygen 1 each IH AD 09/06/17 [History] Pyridoxine HCl [Vitamin B-6] 200 mg PO DAILY 09/06/17 [History] Riboflavin 400 mg PO QDPC 09/06/17 [History] Albuterol Neb [Proventil Neb] 2.5 mg IH Q4H PRN #120 inhsol 09/11/17 [Rx] Pantoprazole Sodium [Protonix] 40 mg PO DAILY #0 09/11/17 [Rx] ALPRAZolam [Xanax 1 MG Tablet] 2 mg PO QID PRN 7 Days #28 tablet 11/23/17 [Rx] Levofloxacin [Levaquin] 750 mg PO DAILY #5 tablet 11/23/17 [Rx] Oxycodone HCl 15 mg PO Q6H PRN 7 Days #28 tablet 11/23/17 [Rx] predniSONE [PredniSONE] 10 mg PO DAILY 20 Days tablet 11/23/17 [Rx] Allergies/Adverse Reactions: 3 Allergy/AdvReac Type Severity Reaction Status Date / Time Cyclobenzaprine AdvReac Irritable Verified 11/20/17 10:58 [From Flexeril] gabapentin AdvReac Irritable Verified 11/20/17 10:58 Procedures/tests Complete & Pending: Procedures Performed prior 72 hours Category Date Time Status EV echocardiogram Routine Y 11/21/17 08:28 Completed Date of admission: 11/20/17 16:15 Primary care physician: Theo Mahan MD Consults: 11/20/17 16:23 Consult to Nutrition [CONS] Routine Comment: Consulting Provider: NUTRITION Reason for Dietary Consult: MST Score 11/21/17 08:43 Consult to Occupational Therapy [CONS] Routine Comment: Evaluate, develop and implement POC Reason for Consult: pt wants ecf Consult to Physical Therapy [CONS] Routine Comment: Evaluate, develop and implement POC Reason for Consult: pt wants ecf 11/22/17 11:53 Consult to Production Gear Cutter [CONS] Routine Reason for SW Consult: pt wants [facility] - Patient Status Disposition: Transfer SNF Condition: Good Overall status at discharge: patient is progressing back to baseline - Discharge Instructions Follow Up With: Marcie Fair CNP [Advanced Practice Nurse] - 11/29/17 1:45 pm Additional Instructions: Complete 5 more days of Levaquin. Prednisone taper as follows: 40 mg daily for 5 days, 30 mg for 5 days, 20 mg for 5 days, 10 mg for 5 days. Quit smoking . Follow up with Pulmonary within the next 2 weeks - Diet and Activity Activity: increase activity as tolerated, wear oxygen at all times (3Lt) Diet: low fat, low cholesterol Hospital course: Ms. Rahman is a 62 year old female with a PMHx of mild diastolic dysfunction, COPD on long-term oxygen therapy 3Lt, coronary artery disease, DVT, GERD, hyperlipidemia, hypertension, myocardial infarction, peripheral artery disease, osteoarthritis, depression, she presented to emergency room having worsening cold symptoms for the past month ,denied any fever, she also had a productive cough and yellow-green sputum , also noticed spots of blood with teaspoon bright red with coughing. Patient has significant history of smoking and she also complained of weight loss. She denied any significant chest pain at this time but she has dyspnea. She stated that hemoptysis is on and off for the past week and she has history of hospitalization in about 3 months ago. Bronchoscopy showed mucopurulent thick secretions, acute mucosal inflammation throughout the tract of bronchial tree, bronchitic changes were found BAL showed nomalignant cells, Acid fast stain was negative. Was continued on cefepime and completed doses of azithromycin, discontinued vancomycin IV on day 2. CTA of the chest showed: 1. No acute pulmonary emboli, aortic dissection or aneurysm. 2. Patchy reticulonodular opacities with focal thickening of the posterior margin of the right lower lobe pneumatocele. Findings may represent atypical infectious process. Neoplasm is not completely excluded. During her hospitalization she experimented confusion and severe respiratory distes secondary to volume overload that was easily relieved by Lasix. Feels better today. No growth in the sputum culture. Was given the option to stay another day but prefers to be discharged to an ECF as recommended by PT/OT. Time spent discussing smoking cessation with patient: 3 to 10 minutes - Time Spent with Patient Total time spent providing and/or coordinating discharge services: Greater than 30 minutes (40 min) - Constitutional Vitals: Temp Pulse Resp BP Pulse Ox 98.1 F 64 18 106/62 98 11/23/17 03:55 11/23/17 03:55 11/23/17 03:55 11/23/17 03:55 11/23/17 03:55 General appearance: Present: cooperative, mild distress, A&O X 3, answers questions appropriately - Head Head exam: Present: atraumatic, normocephalic - Eye Eye exam: Present: PERRL, conjuntiva pink, sclera anicteric Pupils: Present: PERRL - Neck Neck exam general surgery: Present: supple, trachea midline. Absent: lymphadenopathy - Respiratory Respiratory exam: Present: decreased breath sounds, CTAB. Absent: accessory muscle use, rales, rhonchi, wheezes - Cardiovascular Cardiovascular exam: Present: RRR, +S1, +S2. Absent: diastolic murmur, gallop, rubs, systolic murmur - GI/Abdominal GI/Abdominal exam: Present: normal bowel sounds, soft, no peritoneal signs. Absent: distended, tenderness - Extremities Exam Extremities exam: Present: warm, radial pulses palpable and symmetrical. Absent : calf tenderness, cyanotic, pedal edema - Neurological Exam Neurological exam: Present: CN II-XII intact, oriented X3, no focal deficits. Absent: pronater drift, facial droop, speech deficit - Skin Skin exam: Present: dry, intact - VTE Documentation of Mechanical Device: Intermittent pneumatic compression device
[2017-11-23] MEDS: Nicotine 21 MG PATCH.TD24 TD SCH (07:50)
--- NOTE | 2017-11-23 07:50 | Physician Discharge Referral ---
ExtendedCare Referral Info Provider in Charge after Transfer: PCP Institutional Level of Care: Skilled - Diagnosis (1) HCAP (healthcare-associated pneumonia) Status: Acute (2) Acute exacerbation of chronic obstructive airways disease Status: Acute (3) Hemoptysis, unspecified Status: Acute (4) Neuropathy Status: Acute (5) Tobacco abuse Status: Chronic (6) Osteoarthritis Status: Acute - Transfer Medications Prescriptions: ALPRAZolam [Xanax 1 MG Tablet] 2 mg PO QID PRN 7 Days #28 tablet PRN Reason: Anxiety Levofloxacin [Levaquin] 750 mg PO DAILY #5 tablet Oxycodone HCl 15 mg PO Q6H PRN 7 Days #28 tablet PRN Reason: Pain predniSONE [PredniSONE] 10 mg PO DAILY 20 Days tablet Home Medications: Albuterol Sulfate [Proair Respiclick] 2 puff IH Q4H PRN 02/16/16 [History] Aspirin 325 mg PO DAILY 02/16/16 [History] Budesonide/Formoterol 160/4.5 [Symbicort 160/4.5] 2 puff IH BID 02/16/16 [ History] Dronabinol [Marinol] 5 mg PO BID 02/16/16 [History] Ergocalciferol (VITAMIN D2) [Vitamin D2 (50,000 UNIT)] 50,000 unit PO QWEEK 07/24 [History] Furosemide [Lasix] 40 mg PO DAILY 02/16/16 [History] Potassium Chloride [K-Tab ER] 20 meq PO BID 02/16/16 [History] Promethazine [Phenergan] 25 mg PO Q6HR 02/16/16 [History] Roflumilast [Daliresp] 500 mcg PO DAILY 02/16/16 [History] Sertraline [Zoloft] 125 mg PO DAILY 02/16/16 [History] Tiotropium [Spiriva] 18 mcg IH DAILY 02/16/16 [History] amLODIPine [Norvasc] 2.5 mg PO DAILY 02/16/16 [History] Ipratropium/Albuterol Neb [Duoneb] 3 ml IH QID 09/06/17 [History] Ondansetron [Zofran] 4 mg PO BID PRN 09/06/17 [History] Oxygen 1 each IH AD 09/06/17 [History] Pyridoxine HCl [Vitamin B-6] 200 mg PO DAILY 09/06/17 [History] Riboflavin 400 mg PO QDPC 09/06/17 [History] Albuterol Neb [Proventil Neb] 2.5 mg IH Q4H PRN #120 inhsol 09/11/17 [Rx] Pantoprazole Sodium [Protonix] 40 mg PO DAILY #0 09/11/17 [Rx] ALPRAZolam [Xanax 1 MG Tablet] 2 mg PO QID PRN 7 Days #28 tablet 11/23/17 [Rx] Levofloxacin [Levaquin] 750 mg PO DAILY #5 tablet 11/23/17 [Rx] Oxycodone HCl 15 mg PO Q6H PRN 7 Days #28 tablet 11/23/17 [Rx] predniSONE [PredniSONE] 10 mg PO DAILY 20 Days tablet 11/23/17 [Rx] Allergies/Adverse Reactions: 3 Allergy/AdvReac Type Severity Reaction Status Date / Time Cyclobenzaprine AdvReac Irritable Verified 11/20/17 10:58 [From Flexeril] gabapentin AdvReac Irritable Verified 11/20/17 10:58 - Respiratory Orders Oxygen / L per min (3) Smoking Cessation: Smoking cessation has been advised. For more information, call the [place] Tobacco Quit Line at 4-607-XMYANOW. - Advance Directives Code Status: Full Code - Treatments List/Other: Complete 5 more days of Levaquin. Prednisone taper as follows: 40 mg daily for 5 days, 30 mg for 5 days, 20 mg for 5 days, 10 mg for 5 days. Quit smoking . Follow up with Pulmonary within the next 2 weeks CERTIFICATION: I certify that the transfer of the above named patient to an Extended Care Facility is necessary for the continuing treatment of the diagnosis listed. The above information is true and accurate reflection of patient's current condition. Confidential - Redisclosure prohibited without a patient's written consent.
[2017-11-23] MEDS: Furosemide 20 MG/2 ML VIAL IVP SCH ×2 (07:51→16:30)
[2017-11-23] MEDS: Aspirin 325 MG TABLET PO SCH (07:52)
[2017-11-23] MEDS: amLODIPine 5 MG TABLET PO SCH (07:52)
[2017-11-23] MEDS: Azithromycin 250 MG TABLET PO SCH (07:52)
[2017-11-23] MEDS: ALPRAZolam 1 MG TABLET PO SCH ×4 (07:53→20:14)
[2017-11-23] MEDS: Pyridoxine (B-6) 50 MG TABLET PO SCH (07:53)
[2017-11-23 09:58] LABS: Mycoplasma pneumoniae IgG 0.06 U/L (<=0.09)
[2017-11-23] MEDS: *HR* OxyCODONE Immed Rel 15 MG TABLET PO PRN (10:24)
[2017-11-24] MEDS: MethylPREDNISolone 40 MG/ML VIAL IVP SCH ×2 (00:20→06:19)
[2017-11-24] MEDS: Cefepime HCl 2,000 MG in Water for inj. (sterile) 20 ML 20 ML IVP SCH (03:22)
[2017-11-24] MEDS: Ipratropium/Albuterol Neb 3 ML IH SCH ×3 (03:56→11:25)
[2017-11-24 06:50] VITALS: BP 121/70
[2017-11-24] MEDS: Azithromycin 250 MG TABLET PO SCH (08:56)
[2017-11-24] MEDS: ALPRAZolam 1 MG TABLET PO SCH (08:56)
[2017-11-24] MEDS: Pyridoxine (B-6) 50 MG TABLET PO SCH (08:56)
[2017-11-24] MEDS: amLODIPine 5 MG TABLET PO SCH (08:56)
[2017-11-24] MEDS: Aspirin 325 MG TABLET PO SCH (08:56)
[2017-11-24] MEDS: Nicotine 21 MG PATCH.TD24 TD SCH (08:57)
[2017-11-24] MEDS: Furosemide 20 MG/2 ML VIAL IVP SCH (08:57)
--- NOTE | 2017-11-24 09:12 | Internal Med Progress Note ---
Date of Encounter: 11/24/17 Time of Encounter: 09:09 - Assessment and plan (1) HCAP (healthcare-associated pneumonia) Current Visit: Yes Status: Acute Assessment and plan: Acute on chronic hypoxic respiratory failure secondary to acute COPD exacerbation due to healthcare associated pneumonia present upon admission Continue cefepime day 5, completed 3 days of azithromycin discontinued vancomycin IV on day 2 De-escalate antibiotic therapy Will be discharged on 5 days of Levaquin CTA of the chest showed: 1. No acute pulmonary emboli, aortic dissection or aneurysm. 2. Patchy reticulonodular opacities with focal thickening of the posterior margin of the right lower lobe pneumatocele. Findings may represent atypical infectious process. Neoplasm is not completely excluded. Pulmonary services recommendations appreciated (2) Acute exacerbation of chronic obstructive airways disease Current Visit: Yes Status: Acute Assessment and plan: Chronic respiratory failure associated with acute COPD exacerbation secondary to healthcare associated pneumonia Continue prednisone as outpatient , duo nebs and oxygen therapy. Antibiotics as described above (3) Hemoptysis, unspecified Current Visit: Yes Status: Acute Assessment and plan: Bronchoscopy showed mucopurulent thick secretions, acute mucosal inflammation throughout the tract of bronchial tree, bronchitic changes were found BAL pathology showed no malignant cells (4) Neuropathy Current Visit: Yes Status: Acute Assessment and plan: Consider Anita Complain of chronic bilateral hand pain (5) Tobacco abuse Current Visit: Yes Status: Chronic Assessment and plan: Smoking cessation counseling given for 5 min , nicotine patch (6) Osteoarthritis Current Visit: Yes Status: Acute Assessment and plan: The patient does not have history of rheumatoid arthritis Qualifiers: Osteoarthritis location: hand Osteoarthritis type: unspecified Laterality : bilateral Qualified Code(s): M19.041 - Primary osteoarthritis, right hand; M19.042 - Primary osteoarthritis, left hand; M19.042 - Primary osteoarthritis, left hand - Subjective Interval history: Less SOB and coughing up blood in small amounts, less chest pain when coughing, no fevers overnight, no abdominal pain, no diarrhea or dysuria - Constitutional Vitals: Temp Pulse Resp BP Pulse Ox 97.8 F 52 16 121/70 97 11/24/17 06:48 11/24/17 06:48 11/24/17 07:10 11/24/17 06:48 11/24/17 07:10 General appearance: Present: cooperative, mild distress, A&O X 3, answers questions appropriately - Head Head exam: Present: atraumatic, normocephalic - Eye Eye exam: Present: PERRL, conjuntiva pink, sclera anicteric Pupils: Present: PERRL - Neck Neck exam general surgery: Present: supple, trachea midline. Absent: lymphadenopathy - Respiratory Respiratory exam: Present: CTAB. Absent: accessory muscle use, rales, rhonchi, wheezes - Cardiovascular Cardiovascular exam: Present: RRR, +S1, +S2. Absent: diastolic murmur, gallop, rubs, systolic murmur - GI/Abdominal GI/Abdominal exam: Present: normal bowel sounds, soft, no peritoneal signs. Absent: distended, tenderness - Extremities Exam Extremities exam: Present: warm, radial pulses palpable and symmetrical. Absent : calf tenderness, cyanotic, pedal edema - Neurological Exam Neurological exam: Present: CN II-XII intact, oriented X3, no focal deficits. Absent: pronater drift, facial droop, speech deficit - Skin Skin exam: Present: dry, intact Internal Medicine: Result - Labs CBC & Chem 7: 11/22/17 06:36 11/22/17 06:36 - ABG Interpretation ABG results: ABG ABG pH 7.39 pH Units (7.32-7.45) 11/22/17 13:45 ABG pCO2 40 mmHg (35-45) 11/22/17 13:45 ABG pO2 92 mmHg (85-104) 11/22/17 13:45 ABG O2 Saturation 97 % (95-98) 11/22/17 13:45 PT/INR, D-dimer PT 10.4 Seconds (9.4-12.1) 11/20/17 11:56 D-Dimer 584 ng/mLFEU (0-500) H 11/20/17 11:56 - VTE Documentation of Mechanical Device: Intermittent pneumatic compression device Consult Discharge Plan - Plan Additional Instructions: Complete 5 more days of Levaquin. Prednisone taper as follows: 40 mg daily for 5 days, 30 mg for 5 days, 20 mg for 5 days, 10 mg for 5 days. Quit smoking . Follow up with Pulmonary within the next 2 weeks Referrals: Feliberto Gaines MD [Partnered Physician] - 01/11/18 10:00 am (Dr. Gaines said it was okay to see patient on his next available day) Marcie Fair, SUBSTATION ELECTRICIAN [Advanced Practice Nurse] - 11/29/17 1:45 pm Prescriptions: ALPRAZolam [Xanax 1 MG Tablet] 2 mg PO QID PRN 7 Days #28 tablet PRN Reason: Anxiety Levofloxacin [Levaquin] 750 mg PO DAILY #5 tablet Oxycodone HCl 15 mg PO Q6H PRN 7 Days #28 tablet PRN Reason: Pain predniSONE [PredniSONE] 10 mg PO DAILY 20 Days tablet
[2017-11-24] MEDS: *HR* OxyCODONE Immed Rel 15 MG TABLET PO PRN (11:12)
== END 2017-11-24 13:53 | DRG 166 ==
LOC: 2ANU 10:31 → EMEROO 10:31 → 2ANU 15:36 → SUATTDRO 16:15 → 2NNU 11-22 14:50
PROVIDERS: ADMIT Nurse Practitioner; ATTEND Internal Medicine

== ENCOUNTER 2017-12-14 14:09 | Observation (INO) ==
[2017-12-14] MEDS ORDERED: methylPREDNISolone 125 MG/2 ML VIAL IVP ONE (14:39)
[2017-12-14] MEDS ORDERED: Ipratropium/Albuterol Neb 3 ML IH ONE (14:39)
--- NOTE | 2017-12-14 14:50 | Emergency Department Note ---
START Narrative - START START: I examined this patient and my medical decision-making was reviewed with the SPORTS FITNESS AND WELLNESS DIRECTOR/PA/Advanced Practice Nurse/Resident Physician. I agree with the documented findings, disposition and treatment plan as described except to the extent set forth below. I did see the patient spoke with her and examined her and she was discharged within the last several weeks and does have shortness of breath but no fevers. Does have chest pain with coughing only. Does have bilateral wheezing. Symptoms most consistent with COPD exacerbation the patient will be treated here. Labs and chest x-ray pending. 1450 I did review the patient's EKG showing normal sinus rhythm with a rate of 94 and without acute ischemic change or evidence of arrhythmia 1510
[2017-12-14] MEDS ORDERED: 0.9 % Sodium Chloride 250 ML IVC ONE (14:56)
--- NOTE | 2017-12-14 15:07 | Emergency Department Note ---
Disposition Clinical Impression: COPD exacerbation Disposition: Admitted As Inpatient Condition: Fair Reasons to Return/Additional Instructions: Admitted as inpatient Referrals: Theo Mahan MD [Primary Care Provider] - Forms: ED Satisfaction Letter Time of Disposition: 16:38 SOB HPI - General Chief Complaint: ED Shortness of Breath/Dyspnea Stated Complaint: GIBRAN Time Seen by Provider: 12/14/17 14:19 Source: patient, EMS Limitations: no limitations Nursing Notes Reviewed: Yes Vital Signs Reviewed: Yes - History of Present Illness 62-year-old female with a history of COPD presents to emergency room with complaint of shortness of breath 3 months. She states she has been experiencing worsening shortness of breath in this time with a recent hospital admission possibly one month ago for COPD exacerbation with underlying pneumonia. She was her alcohol rubber office this afternoon when she began to experience increased shortness of breath while in the waiting room and was evaluated by the alcohol rubber and sent to the emergency room via EMS. She states she does have a cough but is unable to produce sputum. Denies any symptoms of fevers, chills, vomiting, abdominal pain. She does state she is unable to lie flat but this is chronic. She uses 3L home O2 and is currently tolerating 3.5L at time of exam. She denies PND, recent illness, sick contacts. She was also seen in ED on 12/11/17 and diagnosed with COPD exacerbation and sent back to [facility]. She states she is a former smoker, with last cigarette this morning. - Related Data Home Medications Medication Instructions Recorded Confirmed Albuterol Sulfate [Proair 2 puff IH Q4H PRN 02/16/16 11/20/17 Respiclick] Aspirin 325 mg PO DAILY 02/16/16 11/20/17 Budesonide/Formoterol 160/4.5 2 puff IH BID 02/16/16 11/20/17 [Symbicort 160/4.5] Dronabinol [Marinol] 5 mg PO BID 02/16/16 11/20/17 Ergocalciferol (VITAMIN D2) 50,000 unit PO QWEEK 02/16/16 11/20/17 [Vitamin D2 (50,000 UNIT)] Furosemide [Lasix] 40 mg PO DAILY 02/16/16 11/20/17 Potassium Chloride [K-Tab ER] 20 meq PO BID 02/16/16 11/20/17 Promethazine [Phenergan] 25 mg PO Q6HR 02/16/16 11/20/17 Roflumilast [Daliresp] 500 mcg PO DAILY 02/16/16 11/20/17 Sertraline [Zoloft] 125 mg PO DAILY 02/16/16 11/20/17 Tiotropium [Spiriva] 18 mcg IH DAILY 02/16/16 11/20/17 amLODIPine [Norvasc] 2.5 mg PO DAILY 02/16/16 11/20/17 Ipratropium/Albuterol Neb [Duoneb] 3 ml IH QID 09/06/17 11/20/17 Ondansetron [Zofran] 4 mg PO BID PRN 09/06/17 11/20/17 Oxygen 1 each IH AD 09/06/17 11/20/17 Pyridoxine HCl [Vitamin B-6] 200 mg PO DAILY 09/06/17 11/20/17 Riboflavin 400 mg PO QDPC 09/06/17 11/20/17 Previous Rx's Medication Instructions Recorded Albuterol Neb [Proventil Neb] 2.5 mg IH Q4H PRN #120 inhsol 09/11/17 Pantoprazole Sodium [Protonix] 40 mg PO DAILY #0 09/11/17 ALPRAZolam [Xanax 1 MG Tablet] 2 mg PO QID PRN 7 Days #28 tablet 11/23/17 Levofloxacin [Levaquin] 750 mg PO DAILY #5 tablet 11/23/17 Oxycodone HCl 15 mg PO Q6H PRN 7 Days #28 tablet 11/23/17 predniSONE [PredniSONE] 10 mg PO DAILY 20 Days tablet 11/23/17 Allergies Allergy/AdvReac Type Severity Reaction Status Date / Time Cyclobenzaprine AdvReac Irritable Verified 11/20/17 10:58 [From Flexeril] gabapentin AdvReac Irritable Verified 11/20/17 10:58 All systems ED: reviewed and negative except as stated. Review of Systems: As Per HPI Past Medical History - Past Medical History Medical history: Reports: asthma, COPD, coronary artery disease, GERD, hyperlipidemia, hypertension, myocardial infarction, peripheral artery disease, RA Surgical history: Reports: cholecystectomy, coronary bypass (CABG), hysterectomy Psychiatric history: Reports: no psych history - Social History Smoking Status: Current every day smoker Smokeless Tobacco Status: No Alcohol use: Reports: rarely Drug use: Reports: none Physical Exam - General Limitations: no limitations General appearance: alert, in no apparent distress, cachectic - Head Head exam: atraumatic, normocephalic, normal inspection - ENT ENT exam: normal exam, normal oropharynx, mucous membranes moist - Neck Neck exam: Present: normal inspection, full ROM, trachea midline - Chest Chest inspection: Present: normal inspection, symmetric chest wall rise - Expanded Respiratory Exam Location: wheezes: Left, Right, Upper, Lower - Cardiovascular Cardiovascular exam: Present: regular rate, normal rhythm, normal heart sounds - Abdominal Exam Abdominal exam: Present: soft, Non-Tender. Absent: tenderness, distention, guarding, rebound, rigidity - Extremities Exam Extremities exam: Present: normal inspection, full ROM. Absent: tenderness, pedal edema - Neurological Exam Neurological exam: Present: alert, oriented X3 - Psychiatric Psychiatric exam: Present: normal affect, normal mood - Skin Skin exam: Present: warm, dry, intact, normal color Course Course Narrative: We will obtain chest x-ray, CBC, BMP, troponin, EKG. We will give her DuoNeb's as well as Solu-Medrol for symptomatic control. Titrate her oxygen as needed to maintain oxygen greater than 88%. Vital Signs Temperature 98.2 F 12/14/17 14:11 Pulse Rate 98 12/14/17 14:11 Respiratory Rate 18 12/14/17 14:11 Blood Pressure 128/94 12/14/17 14:11 O2 Sat by Pulse Oximetry 93 12/14/17 14:11 Temperature 98.2 F 12/14/17 14:11 Pulse Rate 98 12/14/17 14:11 Respiratory Rate 16 12/14/17 15:13 Blood Pressure 128/94 12/14/17 14:11 O2 Sat by Pulse Oximetry 93 12/14/17 15:13 Oxygen Delivery Oxygen Delivery Nasal Cannula Shortness of Breath/Dyspnea - [facility] Narrative Medical decision making narrative: 62-year-old female with history of COPD presents for shortness of breath from pulmonology office. Does have diffuse wheezing on exam and his requiring increased supplemental oxygen to maintain oxygen saturation. Chest x-ray reveals no acute process and labs are grossly within normal limits. He does report some improvement with Solu-Medrol and duo nebs however is continuing to remain short of breath. This discussed with the hospitalist, who agrees for admission at this time for further management of acute exacerbation of chronic obstructive pulmonary disease. - Lab Data Result diagrams: 12/14/17 15:22 12/14/17 15:22 Lab Results 12/14/17 12/14/17 12/14/17 Range/Units 15:22 15:22 15:22 WBC 10.4 (4.3-11.1) K/mcL RBC 5.65 H (3.82-4.97) M/mcL Hgb 14.4 (11.5-15.4) g/dL Hct 46.5 H (35.3-44.9) % MCV 82.3 L (83.0-100.0) fL MCH 25.5 L (28.0-33.3) pg MCHC 31.0 L (31.6-35.5) g/dL RDW 18.6 H (11.5-14.5) % Plt Count 484 H D (140-400) K/mcL MPV 9.7 (9.4-12.4) fL Immature Gran % 0.9 (0-4) % Seg Neutrophils % 79.8 % Lymphocytes % 14.0 % Monocytes % 4.8 % Eosinophils % 0.2 % Basophils % 0.3 % Neutrophils # 8.3 (1.6-8.9) K/mcL Lymphocytes # 1.5 (0.6-4.6) K/mcL Monocytes # 0.5 (0.0-1.3) K/mcL Eosinophils # 0.0 (0.0-0.6) K/mcL Basophils # 0.0 (0.0-0.2) K/mcL Nucleated RBCs/100 WBC 0.2 H (0) /100 WBC Sodium 139 (136-145) mEq/L Potassium 4.5 (3.5-5.1) mEq/L Chloride 101 (98-107) mEq/L Carbon Dioxide 31 H (23-29) mEq/L BUN 7 L (8-23) mg/dL Creatinine 0.67 (0.60-1.20) mg/dL Est GFR ( Amer) > 60 (> 60) Est GFR (Non-Af Amer) > 60 (> 60) BUN/Creatinine Ratio 10 (6-26) Glucose 116 H (70-105) mg/dL Calculated Osmolality 287 (280-300) Lactic Acid 0.7 (0.5-2.2) mmol/L Calcium 9.9 (8.6-10.3) mg/dL Troponin I < 0.03 (< 0.04) ng/mL
[2017-12-14 15:38] LABS: Basophils % 0.3 %; Eosinophils % 0.2 %; Hematocrit 46.5 % (35.3-44.9); Hemoglobin 14.4 g/dL (11.5-15.4); Immature Granulocytes % 0.9 % (0-4); Lymphocytes # 1.5 K/mcL (0.6-4.6); Mean Corpuscular Hemoglobin 25.5 pg (28.0-33.3); Mean Corpuscular Volume 82.3 fL (83.0-100.0); Mean Platelet Volume 9.7 fL (9.4-12.4); Monocytes # 0.5 K/mcL (0.0-1.3); Monocytes % 4.8 %; Neutrophils # 8.3 K/mcL (1.6-8.9); Nucleated Red Blood Cells 0.2 /100 WBC (0); Platelet Count 484 K/mcL (140-400); Red Blood Count 5.65 M/mcL (3.82-4.97); Red Cell Distribution Width 18.6 % (11.5-14.5); Segmented Neutrophils % 79.8 %
[2017-12-14 15:55] LABS: Troponin I < 0.03 ng/mL (< 0.04)
[2017-12-14 15:57] LABS: BUN/Creatinine Ratio 10 (6-26); Blood Urea Nitrogen 7 mg/dL (8-23); Calcium 9.9 mg/dL (8.6-10.3); Carbon Dioxide 31 mEq/L (23-29); Chloride 101 mEq/L (98-107); Glucose 116 mg/dL (70-105); Osmolality,Calculated 287 (280-300); Potassium 4.5 mEq/L (3.5-5.1); Sodium 139 mEq/L (136-145); eGFR For African Americans > 60 (> 60); eGFR For Non-African Americans > 60 (> 60)
[2017-12-14] MEDS ORDERED: *HR* Promethazine 25 MG/ML VIAL IVP PRN (16:27)
[2017-12-14] MEDS ORDERED: Naloxone 0.4 MG/ML INJ IVP PRN (16:27)
[2017-12-14] MEDS ORDERED: Acetaminophen 325 MG TABLET PO PRN (16:27)
[2017-12-14] MEDS ORDERED: Ipratropium/Albuterol Neb 3 ML IH PRN (16:30)
--- NOTE | 2017-12-14 17:30 | Internal Med History&Physical ---
Date of Encounter: 12/14/17 Time of Encounter: 17:00 Assessment and Plan (1) Acute and chronic respiratory failure with hypoxia Current visit: No Status: Acute Admit the pt into Tele She is high risk for sepsis and resp failure need close monitoring reviewed CXR no acute infiltrates / consolidation noticed placed on empirical abx Levaquin f/u o blood cx sent for sputum culture, step pneumonia, Legionella and respiratory viral panel continue symptomatic and supportive care started on high dose IV steroids continue scheduled neb treatments (2) COPD exacerbation Current visit: Yes Status: Acute Continue high-dose IV steroids (3) Acute bronchitis Current visit: Yes Status: Acute Mostly bacterial started on empirical antibiotic Levaquin Qualifiers: Qualified Code(s): J20.9 - Acute bronchitis, unspecified (4) Diastolic CHF, chronic Current visit: Yes Status: Acute Not in exacerbation resumed all her home medications including oral Lasix (5) HTN (hypertension) Current visit: Yes Status: Acute Stable with home medications Qualifiers: Hypertension type: essential hypertension Qualified Code(s): I10 - Essential (primary) hypertension (6) Anxiety Current visit: Yes Status: Acute Patient home medication Xanax resumed Internal Medicine - H&P: HPI Chief complaint: SOB, Cough Admitted From: Emergency Dept Plans for Post Hospital Care: Home History of present illness: Ms. Rahman is a 62 year old female Past Med Surg Social Fam HX - Past Medical History Medical history: asthma, COPD, coronary artery disease, GERD, hyperlipidemia, hypertension, myocardial infarction, peripheral artery disease, RA Psychiatric history: no psych history - Past Surgical History Surgical History: cholecystectomy, coronary bypass (CABG), hysterectomy - Social History Smoking Status: Current every day smoker Smokeless Tobacco Status: No Alcohol use: rarely Drug use: none - Family History Brother Adopted: No Living Status: Grandfather Living Status: Hx Family Cancer: Yes (lung) Paternal Living Status: Hx Family Cancer: Yes (lung) Mother Living Status: Hx Family Cardiac Disorders: Yes (CHF) Hx Family Respiratory Disorders: Yes (COPD) Hx Family Cancer: No Father Adopted: No Living Status: Hx Family Cardiac Disorders: Yes ([place],) Hx Family Endocrine Disorder: Yes (diabetes) Internal Medicine - H&P: Meds Albuterol Sulfate [Proair Respiclick] 2 puff IH Q4H PRN 02/16/16 [History] Aspirin 325 mg PO DAILY 02/16/16 [History] Budesonide/Formoterol 160/4.5 [Symbicort 160/4.5] 2 puff IH BID 02/16/16 [ History] Dronabinol [Marinol] 5 mg PO BID 02/16/16 [History] Ergocalciferol (VITAMIN D2) [Vitamin D2 (50,000 UNIT)] 50,000 unit PO QWEEK 07/24 [History] Furosemide [Lasix] 40 mg PO DAILY 02/16/16 [History] Potassium Chloride [K-Tab ER] 20 meq PO BID 02/16/16 [History] Promethazine [Phenergan] 25 mg PO Q6HR 02/16/16 [History] Roflumilast [Daliresp] 500 mcg PO DAILY 02/16/16 [History] Sertraline [Zoloft] 125 mg PO DAILY 02/16/16 [History] Tiotropium [Spiriva] 18 mcg IH DAILY 02/16/16 [History] amLODIPine [Norvasc] 2.5 mg PO DAILY 02/16/16 [History] Ipratropium/Albuterol Neb [Duoneb] 3 ml IH QID 09/06/17 [History] Oxygen 3 l NS AD 09/06/17 [History] Pyridoxine HCl [Vitamin B-6] 200 mg PO DAILY 09/06/17 [History] Riboflavin 400 mg PO DAILY 09/06/17 [History] Albuterol Neb [Proventil Neb] 2.5 mg IH Q4H PRN #120 inhsol 09/11/17 [Rx] Pantoprazole Sodium [Protonix] 40 mg PO DAILY #0 09/11/17 [Rx] Oxycodone HCl 15 mg PO Q6H PRN 7 Days #28 tablet 11/23/17 [Rx] predniSONE [PredniSONE] 10 mg PO DAILY 20 Days tablet 11/23/17 [Rx] Alprazolam [Xanax] 2 mg PO QID 12/14/17 [History] Fluconazole [Diflucan] 100 mg PO BID 12/14/17 [History] Guaifenesin [Mucinex] 1,200 mg PO BID 12/14/17 [History] Ondansetron ODT [Zofran ODT] 4 mg PO BID PRN 12/14/17 [History] Promethazine Syrup [Phenergan Syrup] 6.25 mg PO QID PRN 12/14/17 [History] 3 Allergy/AdvReac Type Severity Reaction Status Date / Time Cyclobenzaprine AdvReac Irritable Verified 11/20/17 10:58 [From Flexeril] gabapentin AdvReac Irritable Verified 11/20/17 10:58 All Systems PM: A 10-system review of systems was performed and is negative for pertinent findings except as documented above in the HPI. - Constitutional Vitals: Temp Pulse Resp BP Pulse Ox 98.2 F 84 18 127/81 95 12/14/17 14:11 12/14/17 16:53 12/14/17 16:53 12/14/17 16:53 12/14/17 16:53 Internal Med - H&P Results - Labs CBC & Chem 7: 12/14/17 15:22 12/14/17 15:22
[2017-12-14] MEDS: *HR* HYDROcodone/Acet 5/325 mg TABLET PO PRN (18:54)
[2017-12-14] MEDS: Levofloxacin 750 MG/150 ML 750 MG/150 ML BAG IVPB SCH (18:55)
[2017-12-14 20:31] LABS: Adenovirus Not Detected (Not Detect); Bordetella Pertussis Not Detected (Not Detect); Chlamydophila pneumoniae Not Detected (Not Detect); Coronavirus 229E Not Detected (Not Detect); Coronavirus HKU1 Not Detected (Not Detect); Coronavirus NL63 Not Detected (Not Detect); Coronavirus OC43 Not Detected (Not Detect); Human Metapneumovirus Not Detected (Not Detect); Human Rhinovirus/Enterovirus Not Detected (Not Detect); Influenza A Subtype 2009 H1 Not Detected (Not Detect); Influenza A Untypeable Not Detected (Not Detect); Influenza B Not Detected (Not Detect); Mycoplasma pneumoniae Not Detected (Not Detect); Parainfluenza Virus 1 Not Detected (Not Detect); Parainfluenza Virus 2 Not Detected (Not Detect); Parainfluenza Virus 3 Not Detected (Not Detect); Parainfluenza Virus 4 Not Detected (Not Detect); Respiratory Syncytial Virus Not Detected (Not Detect)
[2017-12-14] MEDS: MethylPREDNISolone 40 MG/ML VIAL IVP SCH (21:50)
[2017-12-14] MEDS: ALPRAZolam 1 MG TABLET PO PRN (21:51)
[2017-12-15] MEDS: *HR* HYDROcodone/Acet 5/325 mg TABLET PO PRN (05:04)
[2017-12-15] MEDS: *HR* Enoxaparin 40 MG/0.4 ML SYRINGE SQ SCH (05:04)
[2017-12-15] MEDS: MethylPREDNISolone 40 MG/ML VIAL IVP SCH ×4 (05:04→21:21)
[2017-12-15 05:53] LABS: Basophils % 0.3 %; Hematocrit 46.9 % (35.3-44.9); Hemoglobin 14.6 g/dL (11.5-15.4); Immature Granulocytes % 1.1 % (0-4); Lymphocytes # 0.8 K/mcL (0.6-4.6); Lymphocytes % 8.4 %; Mean Corpuscular HGB Conc 31.1 g/dL (31.6-35.5); Mean Corpuscular Hemoglobin 25.4 pg (28.0-33.3); Mean Corpuscular Volume 81.6 fL (83.0-100.0); Mean Platelet Volume 10.1 fL (9.4-12.4); Monocytes # 0.3 K/mcL (0.0-1.3); Monocytes % 2.7 %; Neutrophils # 8.5 K/mcL (1.6-8.9); Platelet Count 477 K/mcL (140-400); Red Blood Count 5.75 M/mcL (3.82-4.97); Red Cell Distribution Width 18.9 % (11.5-14.5); Segmented Neutrophils % 87.5 %
[2017-12-15 05:59] LABS: BUN/Creatinine Ratio 22 (6-26); Blood Urea Nitrogen 14 mg/dL (8-23); Calcium 9.7 mg/dL (8.6-10.3); Carbon Dioxide 29 mEq/L (23-29); Chloride 99 mEq/L (98-107); Glucose 118 mg/dL (70-105); Osmolality,Calculated 284 (280-300); Potassium 4.7 mEq/L (3.5-5.1); Sodium 136 mEq/L (136-145); eGFR For African Americans > 60 (> 60); eGFR For Non-African Americans > 60 (> 60)
[2017-12-15] MEDS: Levofloxacin 750 MG/150 ML 750 MG/150 ML BAG IVPB SCH (09:06)
[2017-12-15] MEDS: ALPRAZolam 1 MG TABLET PO PRN (09:19)
[2017-12-15] MEDS: Ondansetron 4 MG/2 ML VIAL IVP PRN (09:20)
[2017-12-15] MEDS: amLODIPine 5 MG TABLET PO SCH (10:54)
[2017-12-15] MEDS: Aspirin 325 MG TABLET PO SCH (10:54)
[2017-12-15] MEDS: Ipratropium/Albuterol Neb 3 ML IH SCH ×10 (11:54→23:33)
[2017-12-15 12:12] LABS: ABG Base Excess 2 mEq/L (-2 to 3); ABG HCO3 25 mEq/L (21-27); ABG Oxygen Saturation 98 % (95-98); ABG PCO2 34 mmHg (35-45); ABG PH 7.48 pH Units (7.32-7.45); ABG PO2 88 mmHg (85-104); ABG TCO2 26 mEq/L (20-26)
--- NOTE | 2017-12-15 13:01 | Pulmonology Consult Note ---
Date of Encounter: 12/15/17 Time of Encounter: 12:30 Assessment and Plan (1) Acute and chronic respiratory failure with hypoxia Current Visit: Yes Status: Acute Patient is coming with worsening acute on chronic hypoxic respiratory failure to continue O2 supplementation to keep SPO2 around 90-92%. ABG didnt show any uncompensated respiratory acidosis (2) Acute exacerbation of chronic obstructive airways disease Current Visit: No Status: Acute Patient continues to smoke now presenting with COPD exacerbation to continue scheduled bronchodilators , to continue steroids and antibiotics . If not getting better will scan her chest with PE protocol low suspicion for PE as the shortness of breadth and orthopnea is slowly worsening is associated with cough and sputum production. (3) Nicotine addiction Current Visit: Yes Status: Chronic counseled about the link between smoking and about the inflammation of the airways , smoking is a big inciter for neutrophilic inflammation of airways . Qualifiers: Nicotine product type: cigarettes Qualified Code(s): F17.219 - Nicotine dependence, cigarettes, with unspecified nicotine-induced disorders (4) Diastolic dysfunction Current Visit: Yes Status: Acute Patient previous shows diastolic dysfunction will check BNP patient will benefit from gentle diuresis History of Present Illness Consult date: 12/15/17 Requesting physician: Candi Flower Reason for consult: dyspnea, cough, COPD Chief complaint: worsening shortness of breadth History of present illness: 62 year old female with past medical history significant for Severe O2 dependent COPD patient is known to our practice was 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 Pulmonary was consulted for Acute On Chronic hypoxic respiratory failure . Past Med Surg Social Fam HX - Past Medical History Medical history: asthma, COPD, coronary artery disease, GERD, hyperlipidemia, hypertension, myocardial infarction, peripheral artery disease, RA Psychiatric history: no psych history - Past Surgical History Surgical History: cholecystectomy, coronary bypass (CABG), hysterectomy - Social History Smoking Status: Current every day smoker Smokeless Tobacco Status: No Alcohol use: rarely Drug use: none - Family History Brother Adopted: No Living Status: Grandfather Living Status: Hx Family Cancer: Yes (lung) Paternal History Unknown: Yes Name: Wilbert Rahman Family Member Ethnicity: Non- Living Status: Age at : 44 Cause of : [place] Hx Family Cardiac Disorders: Yes Hx Family Cancer: Yes (lung) Hx Family Endocrine Disorder: Yes (DM) Mother Name: Vivian Rahman Family Member Ethnicity: Non- Living Status: Age at : 80 Cause of : CHF Hx Family Cardiac Disorders: Yes (CHF) Hx Family Respiratory Disorders: Yes (COPD) Hx Family Cancer: No Father Adopted: No Living Status: Hx Family Cardiac Disorders: Yes ([place],) Hx Family Endocrine Disorder: Yes (diabetes) Medications and Allergies Albuterol Sulfate [Proair Respiclick] 2 puff IH Q4H PRN 02/16/16 [History] Aspirin 325 mg PO DAILY 02/16/16 [History] Budesonide/Formoterol 160/4.5 [Symbicort 160/4.5] 2 puff IH BID 02/16/16 [ History] Dronabinol [Marinol] 5 mg PO BID 02/16/16 [History] Ergocalciferol (VITAMIN D2) [Vitamin D2 (50,000 UNIT)] 50,000 unit PO QWEEK 07/24 [History] Furosemide [Lasix] 40 mg PO DAILY 02/16/16 [History] Potassium Chloride [K-Tab ER] 20 meq PO BID 02/16/16 [History] Promethazine [Phenergan] 25 mg PO Q6HR 02/16/16 [History] Roflumilast [Daliresp] 500 mcg PO DAILY 02/16/16 [History] Sertraline [Zoloft] 125 mg PO DAILY 02/16/16 [History] Tiotropium [Spiriva] 18 mcg IH DAILY 02/16/16 [History] amLODIPine [Norvasc] 2.5 mg PO DAILY 02/16/16 [History] Ipratropium/Albuterol Neb [Duoneb] 3 ml IH QID 09/06/17 [History] Oxygen 3 l NS AD 09/06/17 [History] Pyridoxine HCl [Vitamin B-6] 200 mg PO DAILY 09/06/17 [History] Riboflavin 400 mg PO DAILY 09/06/17 [History] Albuterol Neb [Proventil Neb] 2.5 mg IH Q4H PRN #120 inhsol 09/11/17 [Rx] Pantoprazole Sodium [Protonix] 40 mg PO DAILY #0 09/11/17 [Rx] Oxycodone HCl 15 mg PO Q6H PRN 7 Days #28 tablet 11/23/17 [Rx] predniSONE [PredniSONE] 10 mg PO DAILY 20 Days tablet 11/23/17 [Rx] Alprazolam [Xanax] 2 mg PO QID 12/14/17 [History] Fluconazole [Diflucan] 100 mg PO BID 12/14/17 [History] Guaifenesin [Mucinex] 1,200 mg PO BID 12/14/17 [History] Ondansetron ODT [Zofran ODT] 4 mg PO BID PRN 12/14/17 [History] Promethazine Syrup [Phenergan Syrup] 6.25 mg PO QID PRN 12/14/17 [History] 3 Allergy/AdvReac Type Severity Reaction Status Date / Time Cyclobenzaprine AdvReac Irritable Verified 11/20/17 10:58 [From Flexeril] gabapentin AdvReac Irritable Verified 11/20/17 10:58 All Systems: The remainder of the systems were reviewed and are negative Physical Examination Vital Signs: Vital Signs, Last 4 Hours Temp Pulse Resp BP Pulse Ox 12/15/17 11:55 20 96 12/15/17 11:23 97.9 F 83 20 119/72 96 12/15/17 09:36 18 94 12/15/17 09:10 94 Auscultation: bilateral: wheezes Results - Laboratory Findings CBC and BMP: 12/15/17 05:04 12/15/17 05:04 ABG ABG pH 7.48 pH Units (7.32-7.45) H 12/15/17 12:10 ABG pCO2 34 mmHg (35-45) L 12/15/17 12:10 ABG pO2 88 mmHg (85-104) 12/15/17 12:10 ABG O2 Saturation 98 % (95-98) 12/15/17 12:10 Abnormal lab findings: Abnormal lab results RBC 5.75 M/mcL (3.82-4.97) H 12/15/17 05:04 Hct 46.9 % (35.3-44.9) H 12/15/17 05:04 MCV 81.6 fL (83.0-100.0) L 12/15/17 05:04 MCH 25.4 pg (28.0-33.3) L 12/15/17 05:04 MCHC 31.1 g/dL (31.6-35.5) L 12/15/17 05:04 RDW 18.9 % (11.5-14.5) H 12/15/17 05:04 Plt Count 477 K/mcL (140-400) H 12/15/17 05:04 Nucleated RBCs/100 WBC 0.2 /100 WBC (0) H 12/14/17 15:22 ABG pH 7.48 pH Units (7.32-7.45) H 12/15/17 12:10 ABG pCO2 34 mmHg (35-45) L 12/15/17 12:10 Glucose 118 mg/dL (70-105) H 12/15/17 05:04 - Microbiology Findings Microbiology Findings: Microbiology, Last 48 Hours 12/14/17 20:19 Legionella Antigen - Final Urine,Clean Catch Streptococcus pneumoniae Antigen (M - Final - Clinical Findings Intake & Output: Intake & Output 12/14/17 12/15/17 12/15/17 23:59 07:59 15:59 Intake Total 150 / 150 240 / 240 Output Total 0 / 0 Balance 150 / 150 240 / 240 Consult Discharge Plan - Plan Referrals: Theo Mahan MD [Primary Care Provider] -
[2017-12-15] MEDS: *HR* OxyCODONE Immed Rel 15 MG TABLET PO PRN ×2 (14:27→20:54)
[2017-12-15] MEDS: Furosemide 20 MG/2 ML VIAL IVP SCH (14:27)
--- NOTE | 2017-12-15 15:46 | Internal Med Progress Note ---
Date of Encounter: 12/15/17 Time of Encounter: 15:44 - Assessment and plan (1) Acute bronchitis Current Visit: Yes Status: Acute Assessment and plan: Continue Levaquin Qualifiers: Bronchitis organism: unspecified organism Qualified Code(s): J20.9 - Acute bronchitis, unspecified (2) Anxiety Current Visit: Yes Status: Acute Assessment and plan: Continue home medication regime (3) COPD exacerbation Current Visit: Yes Status: Acute Assessment and plan: Patient is very dyspneic with accessory muscle use at rest. She is on 4 L nasal cannula. Pulmonary was consulted. ABGs were obtained and she is compensated Duo nebs increased to every 2 hours for 24 hours and then will go back to every 4 hours [id number]. Continue steroids O2 to maintain sats greater than 92% (4) Diastolic CHF, chronic Current Visit: Yes Status: Acute Assessment and plan: Not in exacerbation at this time Resumed home Lasix (5) HTN (hypertension) Current Visit: Yes Status: Acute Assessment and plan: Pressure is stable continue her medications Qualifiers: Hypertension type: essential hypertension Qualified Code(s): I10 - Essential (primary) hypertension (6) Acute and chronic respiratory failure with hypoxia Current Visit: No Status: Acute Assessment and plan: Continue cardiac monitoring Chest x-ray with no acute infiltrate but some consult dictation noted Continue empirical Levaquin Blood cultures are pending Sputum culture pending Strep male Melissa I Legionella and Restoril viral panel are negative Continue steroids Continue scheduled neb treatments with increased to every 2 hours for 24 hours per pulmonary service - Subjective Interval history: Patient denies any chest pain but is very dyspneic on rest. She states that it is hard to get her breath and. He is currently on 4 L nasal cannula. She has no questions regarding her plan of care. She denies any abdominal pain nausea vomiting fever chills - Constitutional Vitals: Temp Pulse Resp BP Pulse Ox 97.9 F 83 20 119/72 96 12/15/17 11:23 12/15/17 11:23 12/15/17 11:55 12/15/17 11:23 12/15/17 11:55 General appearance: Present: cooperative, mild distress, A&O X 3, pleasant, answers questions appropriately - Head Head exam: Present: atraumatic, normocephalic - Eye Eye exam: Present: PERRL, conjuntiva pink, sclera anicteric Pupils: Present: PERRL - Neck Neck exam general surgery: Present: supple, trachea midline. Absent: lymphadenopathy - Respiratory Respiratory exam: Present: accessory muscle use, decreased breath sounds, prolonged expiratory phase, wheezes. Absent: rales, rhonchi - Cardiovascular Cardiovascular exam: Present: RRR, +S1, +S2. Absent: diastolic murmur, gallop, rubs, systolic murmur - GI/Abdominal GI/Abdominal exam: Present: normal bowel sounds, soft, no peritoneal signs. Absent: distended, tenderness - Extremities Exam Extremities exam: Present: warm, radial pulses palpable and symmetrical. Absent : calf tenderness, cyanotic, pedal edema - Neurological Exam Neurological exam: Present: alert, CN II-XII intact, oriented X3, no focal deficits. Absent: pronater drift, facial droop, speech deficit - Skin Skin exam: Present: dry, intact, normal color, warm Internal Medicine: Result - Labs CBC & Chem 7: 12/15/17 05:04 12/15/17 05:04 Labs: Short CBC 12/15/17 Range/Units 05:04 WBC 9.7 (4.3-11.1) K/mcL Hgb 14.6 (11.5-15.4) g/dL Hct 46.9 H (35.3-44.9) % Plt Count 477 H (140-400) K/mcL Neutrophils # 8.5 (1.6-8.9) K/mcL BMP 12/15/17 05:04 Sodium 136 Potassium 4.7 Chloride 99 Carbon Dioxide 29 BUN 14 Creatinine 0.64 Glucose 118 H Calcium 9.7 - ABG Interpretation ABG results: ABG ABG pH 7.48 pH Units (7.32-7.45) H 12/15/17 12:10 ABG pCO2 34 mmHg (35-45) L 12/15/17 12:10 ABG pO2 88 mmHg (85-104) 12/15/17 12:10 ABG O2 Saturation 98 % (95-98) 12/15/17 12:10 Consult Discharge Plan - Plan Referrals: Theo Mahan MD [Primary Care Provider] -
[2017-12-16] MEDS: ALPRAZolam 1 MG TABLET PO PRN ×3 (00:01→17:40)
[2017-12-16] MEDS: Ipratropium/Albuterol Neb 3 ML IH SCH ×9 (01:24→23:29)
[2017-12-16] MEDS: MethylPREDNISolone 40 MG/ML VIAL IVP SCH ×4 (03:33→21:22)
[2017-12-16] MEDS: *HR* Enoxaparin 40 MG/0.4 ML SYRINGE SQ SCH (05:08)
[2017-12-16] MEDS ORDERED: Ipratropium/Albuterol Neb 3 ML IH PRN (05:11)
[2017-12-16] MEDS: Furosemide 20 MG/2 ML VIAL IVP SCH (09:38)
[2017-12-16] MEDS: amLODIPine 5 MG TABLET PO SCH (09:38)
[2017-12-16] MEDS: Aspirin 325 MG TABLET PO SCH (09:38)
[2017-12-16] MEDS: Levofloxacin 750 MG/150 ML 750 MG/150 ML BAG IVPB SCH (09:38)
[2017-12-16 09:42] LABS: Hemoglobin 13.9 g/dL (11.5-15.4); Mean Corpuscular HGB Conc 30.9 g/dL (31.6-35.5); Mean Corpuscular Hemoglobin 25.2 pg (28.0-33.3); Mean Corpuscular Volume 81.7 fL (83.0-100.0); Mean Platelet Volume 9.9 fL (9.4-12.4); Platelet Count 439 K/mcL (140-400); Red Blood Count 5.51 M/mcL (3.82-4.97); Red Cell Distribution Width 18.1 % (11.5-14.5)
[2017-12-16 09:45] LABS: BUN/Creatinine Ratio 23 (6-26); Blood Urea Nitrogen 14 mg/dL (8-23); Calcium 9.8 mg/dL (8.6-10.3); Carbon Dioxide 32 mEq/L (23-29); Chloride 98 mEq/L (98-107); Glucose 166 mg/dL (70-105); Osmolality,Calculated 286 (280-300); Potassium 4.1 mEq/L (3.5-5.1); Sodium 136 mEq/L (136-145); eGFR For African Americans > 60 (> 60); eGFR For Non-African Americans > 60 (> 60)
--- NOTE | 2017-12-16 10:14 | Pulmonology Progress Note ---
Date of Encounter: 12/16/17 Time of Encounter: 10:00 Assessment and Plan (1) Acute and chronic respiratory failure with hypoxia Current Visit: Yes Status: Acute Secondary to COPD exacerbation to Keep SPO2 around 90-92% . Suggested patient to be transferred to closer monitoring for possible BIPAP , patient doesnt want any aggressive measures doesnt want any CPR or any BIPAP or intubation wants to be comfortable as she suffered for may months (2) Acute exacerbation of chronic obstructive airways disease Current Visit: No Status: Acute To continue the current regimen till palliative care assess her for comfort care measures Subjective Principal diagnosis: COPD exacerbation Interval history: Patient is crying in bed , she is tired being on and off short of breadth from june 2017 ,she doesnt want any aggressive measures just want be comfortable and pain free , still feeling short of breadth, has some right hypochondriac pain , denies any other chest pain or palpitations , denies any nausea , vomitting and diarrhea Objective PUL Vital signs: Last Vital Signs Temp 96.9 F L 12/16/17 07:15 Pulse 97 12/16/17 07:15 Resp 20 12/16/17 07:15 BP 122/75 12/16/17 07:15 Pulse Ox 98 12/16/17 07:15 Auscultation: bilateral: diminished breath sounds (basilar), wheezes Results - Laboratory Findings CBC and BMP: 12/16/17 09:17 12/16/17 09:17 ABG ABG pH 7.48 pH Units (7.32-7.45) H 12/15/17 12:10 ABG pCO2 34 mmHg (35-45) L 12/15/17 12:10 ABG pO2 88 mmHg (85-104) 12/15/17 12:10 ABG O2 Saturation 98 % (95-98) 12/15/17 12:10 Abnormal lab findings: Abnormal lab results WBC 13.2 K/mcL (4.3-11.1) H 12/16/17 09:17 RBC 5.51 M/mcL (3.82-4.97) H 12/16/17 09:17 Hct 45.0 % (35.3-44.9) H 12/16/17 09:17 MCV 81.7 fL (83.0-100.0) L 12/16/17 09:17 MCH 25.2 pg (28.0-33.3) L 12/16/17 09:17 MCHC 30.9 g/dL (31.6-35.5) L 12/16/17 09:17 RDW 18.1 % (11.5-14.5) H 12/16/17 09:17 Plt Count 439 K/mcL (140-400) H 12/16/17 09:17 Nucleated RBCs/100 WBC 0.2 /100 WBC (0) H 12/14/17 15:22 ABG pH 7.48 pH Units (7.32-7.45) H 12/15/17 12:10 ABG pCO2 34 mmHg (35-45) L 12/15/17 12:10 Carbon Dioxide 32 mEq/L (23-29) H 12/16/17 09:17 Glucose 166 mg/dL (70-105) H 12/16/17 09:17 - Microbiology Findings Microbiology Findings: Microbiology, Last 48 Hours 12/14/17 20:19 Legionella Antigen - Final Urine,Clean Catch Streptococcus pneumoniae Antigen (M - Final - Clinical Findings Intake & Output: Intake & Output 12/15/17 12/16/17 12/16/17 23:59 07:59 15:59 Intake Total 480 / 480 120 / 120 450 / 450 Balance 480 / 480 120 / 120 450 / 450 Weight 63.004 kg Consult Discharge Plan - Plan Referrals: Theo Mahan MD [Primary Care Provider] -
[2017-12-16] MEDS: *HR* OxyCODONE Immed Rel 15 MG TABLET PO PRN (10:28)
[2017-12-16] MEDS ORDERED: *HR* FentaNYL (PF) 100 MCG/2 ML VIAL IVP SCH (11:45)
--- NOTE | 2017-12-16 11:56 | Internal Med Progress Note ---
Date of Encounter: 12/16/17 Time of Encounter: 11:54 - Assessment and plan (1) Comfort measures only status Current Visit: Yes Status: Acute Assessment and plan: Patient very short of breath today. She is very tired. She is having some rib cage pain secondary to coughing and hard breathing. She states she does not want to live like this. She is fearful of being placed on a ventilator and remaining there for the rest of her life. She said she has had intubation 2 and does not care for it to happen again. After discussion her CODE STATUS has been changed. Pulmonary was in to see the patient and she I indurated that she cannot go on like this and she wants to remain comfortable. Consult aid palliative care for help with management of this patient. Have added Patanol IV every 2 hours at this time. (2) Acute bronchitis Current Visit: Yes Status: Acute Assessment and plan: Levaquin Qualifiers: Bronchitis organism: unspecified organism Qualified Code(s): J20.9 - Acute bronchitis, unspecified (3) Anxiety Current Visit: Yes Status: Acute Assessment and plan: Continue home medication (4) COPD exacerbation Current Visit: Yes Status: Acute Assessment and plan: Patient is very dyspneic with accessory muscle use at rest. She is on 4 L nasal cannula. Pulmonary following. ABGs were obtained and she is compensated Duo nebs increased to every 2 hours for 24 hours and then will go back to every 4 hours [id number]. Continue steroids O2 to maintain sats greater than 92% (5) Diastolic CHF, chronic Current Visit: Yes Status: Acute Assessment and plan: lasix 20 iv yesterday, increased to 40 mg IV today (6) HTN (hypertension) Current Visit: Yes Status: Acute Assessment and plan: Blood Pressure is stable continue her medications Qualifiers: Hypertension type: essential hypertension Qualified Code(s): I10 - Essential (primary) hypertension (7) Acute and chronic respiratory failure with hypoxia Current Visit: No Status: Acute Assessment and plan: Continue cardiac monitoring Chest x-ray with no acute infiltrate but some consult dictation noted Continue empirical Levaquin Blood cultures not collected Sputum cultureordered Strep Pneumo and Legionella and Restoril viral panel are negative Continue steroids Continue scheduled neb treatments with increased to every 2 hours for another 24 hours per pulmonary service - Subjective Interval history: Patient denies any chest pain but is very dyspneic on rest. She states that it is hard to get her breath and. He is currently on 4 L nasal cannula. She has no questions regarding her plan of care. She denies any abdominal pain nausea vomiting fever chills - Constitutional Vitals: Temp Pulse Resp BP Pulse Ox 97.9 F 121 20 130/71 96 12/16/17 11:38 12/16/17 11:38 12/16/17 11:47 12/16/17 11:38 12/16/17 11:47 General appearance: Present: cooperative, mild distress, A&O X 3, pleasant, loss of weight, answers questions appropriately - Head Head exam: Present: atraumatic, normocephalic - Eye Eye exam: Present: PERRL, conjuntiva pink, sclera anicteric Pupils: Present: PERRL - Neck Neck exam general surgery: Present: supple, trachea midline. Absent: lymphadenopathy - Respiratory Respiratory exam: Present: accessory muscle use, chest wall tenderness, decreased breath sounds, prolonged expiratory phase, respiratory distress, wheezes, tachypnea. Absent: rales, rhonchi - Cardiovascular Cardiovascular exam: Present: +S1, +S2, tachycardia. Absent: diastolic murmur, gallop, rubs, systolic murmur - GI/Abdominal GI/Abdominal exam: Present: normal bowel sounds, soft, no peritoneal signs. Absent: distended, tenderness - Extremities Exam Extremities exam: Present: warm, radial pulses palpable and symmetrical. Absent : calf tenderness, cyanotic, pedal edema - Neurological Exam Neurological exam: Present: alert, CN II-XII intact, oriented X3, no focal deficits. Absent: pronater drift, facial droop, speech deficit - Skin Skin exam: Present: dry, intact, warm Internal Medicine: Result - Labs CBC & Chem 7: 12/16/17 09:17 12/16/17 09:17 Labs: Short CBC 12/16/17 Range/Units 09:17 WBC 13.2 H (4.3-11.1) K/mcL Hgb 13.9 (11.5-15.4) g/dL Hct 45.0 H (35.3-44.9) % Plt Count 439 H (140-400) K/mcL BMP 12/16/17 09:17 Sodium 136 Potassium 4.1 Chloride 98 Carbon Dioxide 32 H BUN 14 Creatinine 0.62 Glucose 166 H Calcium 9.8 - ABG Interpretation ABG results: ABG ABG pH 7.48 pH Units (7.32-7.45) H 12/15/17 12:10 ABG pCO2 34 mmHg (35-45) L 12/15/17 12:10 ABG pO2 88 mmHg (85-104) 12/15/17 12:10 ABG O2 Saturation 98 % (95-98) 12/15/17 12:10 Consult Discharge Plan - Plan Referrals: Theo Mahan MD [Primary Care Provider] -
--- NOTE | 2017-12-16 12:19 | Palliative - Consult Note ---
Date of Encounter: 12/16/17 Time of Encounter: 12:20 - Assessment and Plan (1) Dyspnea Current Visit: Yes Status: Acute Assessment and plan: Continues with bronchodilators/steroids/diuretics/antibiotics. Anxiety probably contributing as well. Fentanyl IVP was added per hospitalist this am, this may be helpful to assist with work of breathing. Will monitor. Qualifiers: Dyspnea type: unspecified Qualified Code(s): R06.00 - Dyspnea, unspecified (2) Anxiety Current Visit: Yes Status: Acute Assessment and plan: Continue Xanax as ordered and monitor. (3) Goals of care, counseling/discussion Current Visit: Yes Status: Acute Assessment and plan: Patient very outspoken of her goal to go home and be comfortable. States she has struggled since June with her respiratory issues, and does not want further aggressive care. Spoke with pulmonolgist earlier, and is refusing bipap. She does not want any for of resuscitation for cardiac/respiratory arrest. States she has had a visiting nitrator operator and has "made peace and is ready to go when it is here time". She desires code status to be changed to DNRCC and once she is discharged, does not desire to come back to hospital. Aida was at [facility] prior to this admission for rehabilitation. She lives with her cousin, Meera Kaplan, and also states this is her significant other. She states that Meera is her power of wallpaperer - we do not have any advanced directives in our electronic record that I can find. Aida wants to go home with hospice care, however, I had a phone conversation with Meera, and this may not be feasible. Meera is not able to take off work to care for her - and states they really have no one else that could provide her care. Meera states they are not Medicaid eligible. I will be meeting with them tomorrow around 12 to further discuss, but there may not be enough support for her to go home. (4) Acute and chronic respiratory failure with hypoxia Current Visit: Yes Status: Acute (5) COPD exacerbation Current Visit: Yes Status: Acute Palliative-CN HPI - Data of Consult Consult date: 12/16/17 Requesting Physician: Emmanuelle Ayers MD Primary Care Provider: Theo Mahan MD - Consult Narrative Palliative Care/Comfort Measures: Palliative care History of present illness: Ms. Rahman is a 62 year old female with a long medical history of COPD, CAD, SC/ stents, GERD, Rheumatoid Arthritis, asthma, and tobacco abuse, who was admitted for difficulty in breathing. She was sent from [facility] where she was for a rehabilitation stay. She had admission here last month for same complaints, and also was in ER a few days prior to this admission for breathing difficulties. She is oxygen dependent at home. Currently receiving treatment with IV Steroids/atb/bronchodilators/diuretics, and also treating chronic pain and dyspnea. 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 Upon my visit, she is awake - appears anxious. No visitors present. She c/o headache and right hip discomfort. States breathing is "worse" despite treatment, and is dyspneic with conversation. States "I'm tired of being sick and tired, and I just want to go home and be comfortable.". CC: Emmanuelle Ayers MD Past Med Surg Social Fam HX - Past Medical History Medical history: asthma, COPD, coronary artery disease, GERD, hyperlipidemia, hypertension, myocardial infarction, peripheral artery disease, RA Psychiatric history: no psych history - Past Surgical History Surgical History: cholecystectomy, coronary bypass (CABG), hysterectomy - Social History Smoking Status: Current every day smoker Smokeless Tobacco Status: No Alcohol use: rarely Drug use: none - Family History Brother Adopted: No Living Status: Grandfather Living Status: Hx Family Cancer: Yes (lung) Paternal History Unknown: Yes Name: Wilbert Rahman Family Member Ethnicity: Non- Living Status: Age at : 44 Cause of : SC Hx Family Cardiac Disorders: Yes Hx Family Cancer: Yes (lung) Hx Family Endocrine Disorder: Yes (DM) Mother Name: Vivian Rahman Family Member Ethnicity: Non- Living Status: Age at : 80 Cause of : CHF Hx Family Cardiac Disorders: Yes (CHF) Hx Family Respiratory Disorders: Yes (COPD) Hx Family Cancer: No Father Adopted: No Living Status: Hx Family Cardiac Disorders: Yes (SC,) Hx Family Endocrine Disorder: Yes (diabetes) Medications and Allergies Albuterol Sulfate [Proair Respiclick] 2 puff IH Q4H PRN 02/16/16 [History] Aspirin 325 mg PO DAILY 02/16/16 [History] Budesonide/Formoterol 160/4.5 [Symbicort 160/4.5] 2 puff IH BID 02/16/16 [ History] Dronabinol [Marinol] 5 mg PO BID 02/16/16 [History] Ergocalciferol (VITAMIN D2) [Vitamin D2 (50,000 UNIT)] 50,000 unit PO QWEEK 07/24 [History] Furosemide [Lasix] 40 mg PO DAILY 02/16/16 [History] Potassium Chloride [K-Tab ER] 20 meq PO BID 02/16/16 [History] Promethazine [Phenergan] 25 mg PO Q6HR 02/16/16 [History] Roflumilast [Daliresp] 500 mcg PO DAILY 02/16/16 [History] Sertraline [Zoloft] 125 mg PO DAILY 02/16/16 [History] Tiotropium [Spiriva] 18 mcg IH DAILY 02/16/16 [History] amLODIPine [Norvasc] 2.5 mg PO DAILY 02/16/16 [History] Ipratropium/Albuterol Neb [Duoneb] 3 ml IH QID 09/06/17 [History] Oxygen 3 l NS AD 09/06/17 [History] Pyridoxine HCl [Vitamin B-6] 200 mg PO DAILY 09/06/17 [History] Riboflavin 400 mg PO DAILY 09/06/17 [History] Albuterol Neb [Proventil Neb] 2.5 mg IH Q4H PRN #120 inhsol 09/11/17 [Rx] Pantoprazole Sodium [Protonix] 40 mg PO DAILY #0 09/11/17 [Rx] Oxycodone HCl 15 mg PO Q6H PRN 7 Days #28 tablet 11/23/17 [Rx] predniSONE [PredniSONE] 10 mg PO DAILY 20 Days tablet 11/23/17 [Rx] Alprazolam [Xanax] 2 mg PO QID 12/14/17 [History] Fluconazole [Diflucan] 100 mg PO BID 12/14/17 [History] Guaifenesin [Mucinex] 1,200 mg PO BID 12/14/17 [History] Ondansetron ODT [Zofran ODT] 4 mg PO BID PRN 12/14/17 [History] Promethazine Syrup [Phenergan Syrup] 6.25 mg PO QID PRN 12/14/17 [History] 3 Allergy/AdvReac Type Severity Reaction Status Date / Time Cyclobenzaprine AdvReac Irritable Verified 11/20/17 10:58 [From Flexeril] gabapentin AdvReac Irritable Verified 11/20/17 10:58 All systems: reviewed and no additional remarkable complaints except as stated ( anxiety, weakness, shortness of breath even at rest, chronic back pain, generalized weakness) Palliative Care-Exam - Constitutional Vitals: Temp Pulse Resp BP Pulse Ox 97.9 F 121 20 130/71 96 12/16/17 11:38 12/16/17 11:38 12/16/17 11:47 12/16/17 11:38 12/16/17 11:47 General appearance: Present: thin - Head Head Exam: Present: normal inspection, normocephalic - Eye Eye exam: Present: normal appearance, PERRL - Respiratory Additional comments: Course wheezes to all lung rahman. Appears short of breath at rest. Dyspneic with conversation - Cardiovascular Cardiovascular exam: Present: +S1, +S2 - GI/Abdominal Exam GI/Abdominal exam: Present: normal bowel sounds, soft - Extremities Exam Extremities exam: Present: normal capillary refill, normal inspection - Neurological Exam Neurological exam: Present: alert, oriented X3, strengths equal and symetr throughout - Psychiatric Psychiatric exam: Present: flat affect - Skin Skin exam: Present: dry, pallor, warm Internal Medicine - CN: Reslt - Labs CBC & Chem 7: 12/16/17 09:17 12/16/17 09:17 Labs: Short CBC 12/16/17 Range/Units 09:17 WBC 13.2 H (4.3-11.1) K/mcL Hgb 13.9 (11.5-15.4) g/dL Hct 45.0 H (35.3-44.9) % Plt Count 439 H (140-400) K/mcL BMP 12/16/17 09:17 Sodium 136 Potassium 4.1 Chloride 98 Carbon Dioxide 32 H BUN 14 Creatinine 0.62 Glucose 166 H Calcium 9.8 - ABG Interpretation ABG results: ABG ABG pH 7.48 pH Units (7.32-7.45) H 12/15/17 12:10 ABG pCO2 34 mmHg (35-45) L 12/15/17 12:10 ABG pO2 88 mmHg (85-104) 12/15/17 12:10 ABG O2 Saturation 98 % (95-98) 12/15/17 12:10 Consult Discharge Plan - Plan Referrals: Theo Mahan MD [Primary Care Provider] - Palliative Quality Palliative Quality: Screen for Code Status: Yes, Screen for Goals of Care: Yes, Screen for Pain: Yes, If Pain Regimen Started, Initiate Bowel Regimen: NA, Screen for Nausea/Vomitting: Yes Code Status: 12/16/17 11:29 Resuscitation Status: Active [RES] Routine Comment: Resuscitation Status: [id number]
--- NOTE | 2017-12-16 12:28 | Electrocardiograph Report ---
[address] [address] Test Date: 2017-12-14 Pat Name: Aida Rahman Department: 102 Room: 3B Gender: F Meat Cutter Apprentice: Austyn : 1955 Requested By: Domingo Stephenson Order Number: [id number] Reading MD: Jerome Murphy Measurements Intervals [place] Rate: 94 P: 85 CT: 129 QRS: 75 QRSD: 88 T: 74 QT: 337 QTc: 389 Interpretive Statements SINUS RHYTHM Electronically Signed On 12-16-2017 12:26:32 EST by Jerome Murphy
[2017-12-16] MEDS: *HR* FentaNYL (PF) 100 MCG/2 ML VIAL IVP PRN ×5 (12:39→21:21)
[2017-12-16] MEDS: Furosemide 40 MG/4 ML VIAL IVP SCH (12:57)
[2017-12-16] MEDS: Melatonin 3 MG TABLET PO SCH (21:22)
[2017-12-17] MEDS: Ipratropium/Albuterol Neb 3 ML IH SCH ×5 (03:11→19:46)
[2017-12-17] MEDS: MethylPREDNISolone 40 MG/ML VIAL IVP SCH ×4 (05:54→20:22)
[2017-12-17] MEDS: *HR* Enoxaparin 40 MG/0.4 ML SYRINGE SQ SCH (05:54)
[2017-12-17 05:57] LABS: Hematocrit 41.8 % (35.3-44.9); Mean Corpuscular HGB Conc 31.1 g/dL (31.6-35.5); Mean Corpuscular Hemoglobin 25.4 pg (28.0-33.3); Mean Corpuscular Volume 81.6 fL (83.0-100.0); Mean Platelet Volume 10.5 fL (9.4-12.4); Platelet Count 395 K/mcL (140-400); Red Blood Count 5.12 M/mcL (3.82-4.97); Red Cell Distribution Width 17.5 % (11.5-14.5)
[2017-12-17] MEDS: ALPRAZolam 1 MG TABLET PO PRN ×2 (06:03→16:50)
[2017-12-17 06:13] LABS: BUN/Creatinine Ratio 26 (6-26); Blood Urea Nitrogen 19 mg/dL (8-23); Calcium 9.4 mg/dL (8.6-10.3); Carbon Dioxide 30 mEq/L (23-29); Chloride 99 mEq/L (98-107); Glucose 107 mg/dL (70-105); Osmolality,Calculated 281 (280-300); Sodium 134 mEq/L (136-145); eGFR For African Americans > 60 (> 60); eGFR For Non-African Americans > 60 (> 60)
[2017-12-17] MEDS: Furosemide 40 MG/4 ML VIAL IVP SCH (09:02)
[2017-12-17] MEDS: Levofloxacin 750 MG/150 ML 750 MG/150 ML BAG IVPB SCH (09:02)
[2017-12-17] MEDS: Aspirin 325 MG TABLET PO SCH (09:02)
[2017-12-17] MEDS: amLODIPine 5 MG TABLET PO SCH (09:04)
[2017-12-17] MEDS: *HR* OxyCODONE Immed Rel 15 MG TABLET PO PRN (09:15)
[2017-12-17] MEDS: *HR* FentaNYL (PF) 100 MCG/2 ML VIAL IVP PRN (10:59)
--- NOTE | 2017-12-17 11:51 | Internal Med Progress Note ---
Date of Encounter: 12/17/17 Time of Encounter: 11:37 - Assessment and plan (1) Comfort measures only status Current Visit: Yes Status: Acute Assessment and plan: Patient very short of breath and is very tired. She irib cage pain secondary to coughing and hard breathing is better controlled She stated shedid not want to live like this. She is fearful of being placed on a ventilator and remaining there for the rest of her life. She said she has had intubation 2 and does not care for it to happen again. After discussion her CODE STATUS was changed on 11/18/17. Palliative care following and appreciate help with management of this patient. Fentanyl IV every 1 hour as needed for pain. (2) Acute bronchitis Current Visit: Yes Status: Acute Assessment and plan: Continue levaquin Qualifiers: Bronchitis organism: unspecified organism Qualified Code(s): J20.9 - Acute bronchitis, unspecified (3) Anxiety Current Visit: Yes Status: Acute Assessment and plan: Continue her home medication (4) COPD exacerbation Current Visit: Yes Status: Acute Assessment and plan: Patient is very dyspneic with accessory muscle use at rest. She is on 4 L nasal cannula. Pulmonary following. ABGs were obtained and she is compensated Duo nebs increased to every 2 hours for 24 hours and then will go back to every 4 hours [id number]. Continue steroids Continue O2 to maintain sats greater than 92% (5) Diastolic CHF, chronic Current Visit: Yes Status: Acute Assessment and plan: lasix 40 mg IV (6) HTN (hypertension) Current Visit: Yes Status: Acute Assessment and plan: Blood Pressure stable continue her medications Qualifiers: Hypertension type: essential hypertension Qualified Code(s): I10 - Essential (primary) hypertension (7) Acute and chronic respiratory failure with hypoxia Current Visit: No Status: Acute Assessment and plan: Discontinue cardiac monitoring Chest x-ray with no acute infiltrate but some consolidation noted Continue empirical Levaquin Blood cultures not collected Sputum culture ordered Strep Pneumo and Legionella and Resp viral panel are negative Continue steroids Continue scheduled neb treatments with increased to every 2 hours for another 24 hours per pulmonary service - Subjective Interval history: Patient remains very air hungry. Her rib cage pain is better controlled but she states she feels miserable. She is exhausted. - Constitutional Vitals: Temp Pulse Resp BP Pulse Ox 98.1 F 56 16 122/67 99 12/17/17 07:11 12/17/17 07:11 12/17/17 07:11 12/17/17 07:11 12/17/17 07:11 General appearance: Present: cooperative, A&O X 3, pleasant, loss of weight, answers questions appropriately Exam: moderate distress - Head Head exam: Present: atraumatic, normocephalic - Eye Eye exam: Present: PERRL, conjuntiva pink, sclera anicteric Pupils: Present: PERRL - Neck Neck exam general surgery: Present: supple, trachea midline. Absent: lymphadenopathy - Respiratory Respiratory exam: Present: accessory muscle use, decreased breath sounds, prolonged expiratory phase, respiratory distress, wheezes. Absent: rales, rhonchi - Cardiovascular Cardiovascular exam: Present: RRR, +S1, +S2. Absent: diastolic murmur, gallop, rubs, systolic murmur - GI/Abdominal GI/Abdominal exam: Present: normal bowel sounds, soft, no peritoneal signs. Absent: distended, tenderness - Extremities Exam Extremities exam: Present: warm, radial pulses palpable and symmetrical. Absent : calf tenderness, cyanotic, pedal edema - Neurological Exam Neurological exam: Present: alert, CN II-XII intact, oriented X3, no focal deficits. Absent: pronater drift, facial droop, speech deficit - Skin Skin exam: Present: cyanosis, dry, intact, warm Internal Medicine: Result - Labs CBC & Chem 7: 12/17/17 04:20 12/17/17 04:20 Labs: Short CBC 12/17/17 Range/Units 04:20 WBC 11.7 H (4.3-11.1) K/mcL Hgb 13.0 (11.5-15.4) g/dL Hct 41.8 (35.3-44.9) % Plt Count 395 (140-400) K/mcL BMP 12/17/17 04:20 Sodium 134 L Potassium 4.0 Chloride 99 Carbon Dioxide 30 H BUN 19 Creatinine 0.72 Glucose 107 H Calcium 9.4 - ABG Interpretation ABG results: ABG ABG pH 7.48 pH Units (7.32-7.45) H 12/15/17 12:10 ABG pCO2 34 mmHg (35-45) L 12/15/17 12:10 ABG pO2 88 mmHg (85-104) 12/15/17 12:10 ABG O2 Saturation 98 % (95-98) 12/15/17 12:10 Consult Discharge Plan - Plan Referrals: Theo Mahan MD [Primary Care Provider] -
[2017-12-17] MEDS ORDERED: *HR* Morphine Sulfate SR (12 HR) 30 MG TABLET.ER PO ONE (13:15)
--- NOTE | 2017-12-17 13:16 | Palliative Progress Note ---
Date of Encounter: 12/17/17 Time of Encounter: 13:00 - Assessment and plan (1) Dyspnea Current Visit: Yes Status: Acute Assessment and plan: Will begin MS Grabiel with Roxanol for breakthrough. continue nebs/oxygen/ steroids Qualifiers: Dyspnea type: unspecified Qualified Code(s): R06.00 - Dyspnea, unspecified (2) Anxiety Current Visit: Yes Status: Acute Assessment and plan: Continue Xanax PRN. (3) Goals of care, counseling/discussion Current Visit: Yes Status: Acute Assessment and plan: 60 min discussion with pt and significant other, Meera Kaplan. Patient does not desire to go back to nursing facility and wants to go home with hospice care. Meera works 50%, but they are going to try and arrange friends to be available on Meera's working days. They are aware that this may not be for care home, and she may ultimately need ECF placement. They are aware that long term care phlebotomist care at [facility] with hospice would be private pay. They desire to try her care at home for a while. She is DNRCC - state form completed and signed by pt. She does not want to return to hospital, and refuses bipap or further respiratory support other than oxygen/nebs. Only DME needs are BSC and overbed table. [facility] already provides oxygen. Will titrate medications over the next 24-48 hours and goal for discharge . Referral info sent to [facility] hospice team. D/W Candi Flower NP. (4) Acute and chronic respiratory failure with hypoxia Current Visit: Yes Status: Acute (5) COPD exacerbation Current Visit: Yes Status: Acute - Time Spent With Patient Total time spent is greater than 50% in coordination of care (as documented) at patient's floor/unit and/or counseling patient: - Subjective Interval history: Patient resting quietly, very shaky, significant other at bedside. C/o costochondrial pain rt side. Still significant shortness of breath with conversation but did state she rested better last night than previous. - Constitutional Vitals: Abnormal lab results WBC 11.7 K/mcL (4.3-11.1) H 12/17/17 04:20 RBC 5.12 M/mcL (3.82-4.97) H 12/17/17 04:20 MCV 81.6 fL (83.0-100.0) L 12/17/17 04:20 MCH 25.4 pg (28.0-33.3) L 12/17/17 04:20 MCHC 31.1 g/dL (31.6-35.5) L 12/17/17 04:20 RDW 17.5 % (11.5-14.5) H 12/17/17 04:20 Nucleated RBCs/100 WBC 0.2 /100 WBC (0) H 12/14/17 15:22 ABG pH 7.48 pH Units (7.32-7.45) H 12/15/17 12:10 ABG pCO2 34 mmHg (35-45) L 12/15/17 12:10 Sodium 134 mEq/L (136-145) L 12/17/17 04:20 Carbon Dioxide 30 mEq/L (23-29) H 12/17/17 04:20 Glucose 107 mg/dL (70-105) H 12/17/17 04:20 General appearance: Present: mild distress - Respiratory Additional comments: Course lung sounds throughout, moist harsh cough - Cardiovascular Cardiovascular exam: Present: +S1, +S2 - GI/Abdominal GI/Abdominal exam: Present: normal bowel sounds, soft - Extremities Exam Extremities exam: Present: normal capillary refill, normal inspection - Neurological Exam Neurological exam: Present: alert, oriented X3, strengths equal and symetr throughout - Skin Skin exam: Present: dry, pallor, warm Palliative Quality Palliative Quality: Screen for Code Status: Yes, Screen for Goals of Care: Yes, Screen for Pain: Yes, If Pain Regimen Started, Initiate Bowel Regimen: NA, Screen for Nausea/Vomitting: Yes Code Status: 12/16/17 11:29 Resuscitation Status: Active [RES] Routine Comment: Resuscitation Status: [id number] 12/16/17 12:17 DNR [Resuscitation Status: Active] [RES] Routine Comment: Resuscitation Status: DNR-Comfort Care - Labs CBC & Chem 7: 12/17/17 04:20 12/17/17 04:20 Labs: Laboratory Results - last 24 hr 12/17/17 12/17/17 04:20 04:20 WBC 11.7 H RBC 5.12 H Hgb 13.0 Hct 41.8 MCV 81.6 L MCH 25.4 L MCHC 31.1 L RDW 17.5 H Plt Count 395 MPV 10.5 Sodium 134 L Potassium 4.0 Chloride 99 Carbon Dioxide 30 H BUN 19 Creatinine 0.72 Est GFR ( Amer) > 60 Est GFR (Non-Af Amer) > 60 BUN/Creatinine Ratio 26 Glucose 107 H Calculated Osmolality 281 Calcium 9.4 - ABG Interpretation ABG results: ABG ABG pH 7.48 pH Units (7.32-7.45) H 12/15/17 12:10 ABG pCO2 34 mmHg (35-45) L 12/15/17 12:10 ABG pO2 88 mmHg (85-104) 12/15/17 12:10 ABG O2 Saturation 98 % (95-98) 12/15/17 12:10 Consult Discharge Plan - Plan Referrals: Theo Mahan MD [Primary Care Provider] -
[2017-12-17] MEDS: Melatonin 3 MG TABLET PO SCH (20:22)
[2017-12-17] MEDS: *HR* Morphine Sulfate SR (12 HR) 30 MG TABLET.ER PO SCH (20:23)
[2017-12-18] MEDS: Ipratropium/Albuterol Neb 3 ML IH SCH ×7 (00:02→23:20)
[2017-12-18] MEDS: ALPRAZolam 1 MG TABLET PO PRN ×3 (03:39→19:55)
[2017-12-18] MEDS: MethylPREDNISolone 40 MG/ML VIAL IVP SCH ×4 (03:40→21:38)
[2017-12-18 05:41] LABS: Mean Corpuscular HGB Conc 31.7 g/dL (31.6-35.5); Mean Corpuscular Hemoglobin 25.7 pg (28.0-33.3); Mean Platelet Volume 10.3 fL (9.4-12.4); Platelet Count 380 K/mcL (140-400); Red Blood Count 5.06 M/mcL (3.82-4.97); Red Cell Distribution Width 17.4 % (11.5-14.5)
[2017-12-18] MEDS: *HR* Enoxaparin 40 MG/0.4 ML SYRINGE SQ SCH (05:47)
[2017-12-18] MEDS: *HR* Morphine Sulfate SR (12 HR) 30 MG TABLET.ER PO SCH ×2 (05:47→18:24)
[2017-12-18 06:08] LABS: BUN/Creatinine Ratio 33 (6-26); Blood Urea Nitrogen 15 mg/dL (8-23); Calcium 9.6 mg/dL (8.6-10.3); Carbon Dioxide 32 mEq/L (23-29); Chloride 97 mEq/L (98-107); Glucose 101 mg/dL (70-105); Osmolality,Calculated 279 (280-300); Potassium 3.9 mEq/L (3.5-5.1); Sodium 134 mEq/L (136-145); eGFR For African Americans > 60 (> 60); eGFR For Non-African Americans > 60 (> 60)
[2017-12-18] MEDS: Furosemide 40 MG/4 ML VIAL IVP SCH (09:07)
[2017-12-18] MEDS: Aspirin 325 MG TABLET PO SCH (09:07)
[2017-12-18] MEDS: amLODIPine 5 MG TABLET PO SCH (09:07)
[2017-12-18] MEDS: Levofloxacin 750 MG/150 ML 750 MG/150 ML BAG IVPB SCH (09:07)
[2017-12-18] MEDS: Ondansetron 4 MG/2 ML VIAL IVP PRN (09:13)
[2017-12-18] MEDS: *HR* FentaNYL (PF) 100 MCG/2 ML VIAL IVP PRN (09:13)
--- NOTE | 2017-12-18 09:49 | Palliative Progress Note ---
Date of Encounter: 12/18/17 Time of Encounter: 09:20 - Assessment and plan (1) Costochondral chest pain Current Visit: No Status: Acute Assessment and plan: Reports continued costochondral chest pain 8/10; has taken MS Contin times two doses, which were reportedly strong enough, Fentanyl does previous to MS Contin initiation and during assessment, no doses of Roxanol have been administered. Discussed plan to discontinue Fentanyl today if Roxanol and MS Contin control pain. (2) Anxiety Current Visit: Yes Status: Acute Assessment and plan: Reports continued anxiety; has taken 1 dose of Xanax in last 24 hours. (3) Acute and chronic respiratory failure with hypoxia Current Visit: Yes Status: Acute Assessment and plan: Reports continued dyspnea; continue Duonebbs, MS Contin and Roxinol for control (4) Dyspnea Current Visit: Yes Status: Acute Assessment and plan: Continued dyspnea; continue oxygen, MS Contin and Roxanol for symptom control. Did ask for additional oxygen tubing for concentrator for when she goes home. Will notify SW. Qualifiers: Dyspnea type: unspecified Qualified Code(s): R06.00 - Dyspnea, unspecified (5) Goals of care, counseling/discussion Current Visit: Yes Status: Acute Assessment and plan: Discussed plan of care at discharge. Patient reports plan to go home with hospice and have friends stay with her when Ms. Kaplan is working. Will contact Ms. Kaplan for confirmation of continued plan for discharge. - Time Spent With Patient Total time spent is greater than 50% in coordination of care (as documented) at patient's floor/unit and/or counseling patient: - Subjective Interval history: Patient sitting in bed, alert and oriented times three with nurse at bedside taking medications. Accessory muscles noted during respirations. No cyanosis present. Patient is laughing and joking with nurse regarding Movie Character. Reports continued pain 8/10 side of chest grabbing pain, taking IV Fentanyl at this time; reports MS Contin is strong enough. Discussed plan to go home tomorrow; will be arranging for friends to come stay with her when Ms. Kaplan is working. Reports anxiety is continuing to make her shaky but the Nerve medicine helps. Complains of continued dyspnea despite Duonebs, MS Contin, and Oxygen; explains nurses are really helping her with her breathing and she has been able to get up to the bedside commode. - Constitutional Vitals: Abnormal lab results WBC 11.2 K/mcL (4.3-11.1) H 12/18/17 05:08 RBC 5.06 M/mcL (3.82-4.97) H 12/18/17 05:08 MCV 81.0 fL (83.0-100.0) L 12/18/17 05:08 MCH 25.7 pg (28.0-33.3) L 12/18/17 05:08 RDW 17.4 % (11.5-14.5) H 12/18/17 05:08 Nucleated RBCs/100 WBC 0.2 /100 WBC (0) H 12/14/17 15:22 ABG pH 7.48 pH Units (7.32-7.45) H 12/15/17 12:10 ABG pCO2 34 mmHg (35-45) L 12/15/17 12:10 Sodium 134 mEq/L (136-145) L 12/18/17 05:08 Chloride 97 mEq/L (98-107) L 12/18/17 05:08 Carbon Dioxide 32 mEq/L (23-29) H 12/18/17 05:08 Creatinine 0.45 mg/dL (0.60-1.20) L 12/18/17 05:08 BUN/Creatinine Ratio 33 (6-26) H 12/18/17 05:08 Calculated Osmolality 279 (280-300) L 12/18/17 05:08 - Head Head exam: Present: normal inspection - Neck Neck exam: Present: full ROM, normal inspection - Respiratory Respiratory exam: Present: accessory muscle use, wheezes - Cardiovascular Cardiovascular exam: Present: +S1, +S2 - Expanded Cardiovascular Exam Peripheral pulses: 2+: Radial (L), Radial (R) - Extremities Exam Extremities exam: Present: full ROM, normal inspection. Absent: pedal edema - Neurological Exam Neurological exam: Present: alert, oriented X3 - Psychiatric Psychiatric exam: Present: normal affect, normal mood Palliative Quality Palliative Quality: Screen for Code Status: Yes, Screen for Goals of Care: Yes, Screen for Pain: Yes, If Pain Regimen Started, Initiate Bowel Regimen: NA, Screen for Nausea/Vomitting: Yes Code Status: 12/16/17 11:29 Resuscitation Status: Active [RES] Routine Comment: Resuscitation Status: [id number] 12/16/17 12:17 DNR [Resuscitation Status: Active] [RES] Routine Comment: Resuscitation Status: DNR-Comfort Care - Labs CBC & Chem 7: 12/18/17 05:08 12/18/17 05:08 Labs: Laboratory Results - last 24 hr 12/18/17 12/18/17 05:08 05:08 WBC 11.2 H RBC 5.06 H Hgb 13.0 Hct 41.0 MCV 81.0 L MCH 25.7 L MCHC 31.7 RDW 17.4 H Plt Count 380 MPV 10.3 Sodium 134 L Potassium 3.9 Chloride 97 L Carbon Dioxide 32 H BUN 15 Creatinine 0.45 L Est GFR ( Amer) > 60 Est GFR (Non-Af Amer) > 60 BUN/Creatinine Ratio 33 H Glucose 101 Calculated Osmolality 279 L Calcium 9.6 - ABG Interpretation ABG results: ABG ABG pH 7.48 pH Units (7.32-7.45) H 12/15/17 12:10 ABG pCO2 34 mmHg (35-45) L 12/15/17 12:10 ABG pO2 88 mmHg (85-104) 12/15/17 12:10 ABG O2 Saturation 98 % (95-98) 12/15/17 12:10 Consult Discharge Plan - Plan Referrals: Theo Mahan MD [Primary Care Provider] -
--- NOTE | 2017-12-18 15:01 | Internal Med Progress Note ---
Date of Encounter: 12/18/17 Time of Encounter: 14:59 - Assessment and plan (1) Comfort measures only status Current Visit: Yes Status: Acute Assessment and plan: Patient was very short of breath and very tired. She rib cage pain secondary to coughing and hard breathing is better controlled She stated she did not want to live like this. She is fearful of being placed on a ventilator and remaining there for the rest of her life. She said she has had intubation 2 and does not care for it to happen again. After discussion her CODE STATUS was changed on 11/18/17. Palliative care following and appreciate help with management of this patient. Pain medication has been adjusted by pallative with better symptom control. (2) Acute bronchitis Current Visit: Yes Status: Acute Assessment and plan: Continue the levaquin pulmonary consult Qualifiers: Bronchitis organism: unspecified organism Qualified Code(s): J20.9 - Acute bronchitis, unspecified (3) Anxiety Current Visit: Yes Status: Acute Assessment and plan: Continue home medication (4) COPD exacerbation Current Visit: Yes Status: Acute Assessment and plan: Patient is dyspneic with accessory muscle use at rest. she is looking a little better but still sounds terrible She is on 4 L nasal cannula. Pulmonary following. ABGs were obtained and she is compensated Duo nebs increased to every 2 hours for 24 hours and then will go back to every 4 hours [id number]. Continue steroids Continue O2 to maintain sats greater than 92% (5) Diastolic CHF, chronic Current Visit: Yes Status: Acute Assessment and plan: lasix to 20 mg po (6) HTN (hypertension) Current Visit: Yes Status: Acute Assessment and plan: Blood Pressure stable, continue her medications Qualifiers: Hypertension type: essential hypertension Qualified Code(s): I10 - Essential (primary) hypertension (7) Acute and chronic respiratory failure with hypoxia Current Visit: No Status: Acute Assessment and plan: Discontinue cardiac monitoring Chest x-ray with no acute infiltrate but some consolidation noted Continue empirical Levaquin Blood cultures not collected Sputum culture not obtained Strep Pneumo and Legionella and Resp viral panel are negative Continue steroids Continue scheduled neb treatments with increased to every 2 hours for another 24 hours per pulmonary service - Subjective Interval history: Patient looks a little better today. She states she feels a little improved. She is taking her pain medicine so the pain and work of breathing is better controlled. She is planning to go home tomorrow with hospice care. Family was at the bedside. There are no questions at this time. Scripts were provided for bedside commode and over-bed table, questioning when the equipment would be delivered, defer to social scientist - Constitutional Vitals: Temp Pulse Resp BP Pulse Ox 98.6 F 84 18 115/74 98 12/18/17 11:21 12/18/17 11:21 12/18/17 11:39 12/18/17 11:21 12/18/17 11:39 General appearance: Present: cooperative, A&O X 3, pleasant, loss of weight, answers questions appropriately - Head Head exam: Present: atraumatic, normocephalic - Eye Eye exam: Present: PERRL, conjuntiva pink, sclera anicteric Pupils: Present: PERRL - Neck Neck exam general surgery: Present: supple, trachea midline. Absent: lymphadenopathy - Respiratory Respiratory exam: Present: accessory muscle use, chest wall tenderness, decreased breath sounds, prolonged expiratory phase, wheezes. Absent: rales, rhonchi - Cardiovascular Cardiovascular exam: Present: RRR, +S1, +S2. Absent: diastolic murmur, gallop, rubs, systolic murmur - GI/Abdominal GI/Abdominal exam: Present: normal bowel sounds, soft, no peritoneal signs. Absent: distended, tenderness - Extremities Exam Extremities exam: Present: warm, radial pulses palpable and symmetrical. Absent : calf tenderness, cyanotic, pedal edema - Neurological Exam Neurological exam: Present: alert, CN II-XII intact, oriented X3, no focal deficits. Absent: pronater drift, facial droop, speech deficit - Skin Skin exam: Present: dry, intact, normal color, warm Internal Medicine: Result - Labs CBC & Chem 7: 12/18/17 05:08 12/18/17 05:08 Labs: Short CBC 12/18/17 Range/Units 05:08 WBC 11.2 H (4.3-11.1) K/mcL Hgb 13.0 (11.5-15.4) g/dL Hct 41.0 (35.3-44.9) % Plt Count 380 (140-400) K/mcL BMP 12/18/17 05:08 Sodium 134 L Potassium 3.9 Chloride 97 L Carbon Dioxide 32 H BUN 15 Creatinine 0.45 L Glucose 101 Calcium 9.6 - ABG Interpretation ABG results: ABG ABG pH 7.48 pH Units (7.32-7.45) H 12/15/17 12:10 ABG pCO2 34 mmHg (35-45) L 12/15/17 12:10 ABG pO2 88 mmHg (85-104) 12/15/17 12:10 ABG O2 Saturation 98 % (95-98) 12/15/17 12:10 Consult Discharge Plan - Plan Referrals: Theo Mahan MD [Primary Care Provider] -
[2017-12-18] MEDS: MORPHINE SUL Oral CONC 10 MG/0.5 ML ORAL.SYG SL PRN ×2 (15:19→21:41)
[2017-12-18] MEDS ORDERED: Lactulose Oral Soln 20 GM/30 ML UDC PO SCH (20:00)
[2017-12-18] MEDS: Melatonin 3 MG TABLET PO SCH (21:37)
[2017-12-19] MEDS: MORPHINE SUL Oral CONC 10 MG/0.5 ML ORAL.SYG SL PRN ×2 (00:13→11:59)
[2017-12-19] MEDS: Ipratropium/Albuterol Neb 3 ML IH SCH ×3 (03:44→11:20)
[2017-12-19] MEDS: MethylPREDNISolone 40 MG/ML VIAL IVP SCH ×2 (06:20→08:20)
[2017-12-19] MEDS: *HR* Enoxaparin 40 MG/0.4 ML SYRINGE SQ SCH (06:20)
[2017-12-19] MEDS: *HR* Morphine Sulfate SR (12 HR) 30 MG TABLET.ER PO SCH (06:20)
[2017-12-19 06:34] LABS: Hematocrit 40.7 % (35.3-44.9); Hemoglobin 12.4 g/dL (11.5-15.4); Mean Corpuscular HGB Conc 30.5 g/dL (31.6-35.5); Mean Corpuscular Hemoglobin 25.5 pg (28.0-33.3); Mean Corpuscular Volume 83.7 fL (83.0-100.0); Mean Platelet Volume 10.2 fL (9.4-12.4); Platelet Count 328 K/mcL (140-400); Red Blood Count 4.86 M/mcL (3.82-4.97); Red Cell Distribution Width 17.2 % (11.5-14.5)
[2017-12-19 06:36] LABS: BUN/Creatinine Ratio 31 (6-26); Blood Urea Nitrogen 16 mg/dL (8-23); Calcium 9.1 mg/dL (8.6-10.3); Carbon Dioxide 34 mEq/L (23-29); Chloride 98 mEq/L (98-107); Glucose 132 mg/dL (70-105); Osmolality,Calculated 287 (280-300); Potassium 3.6 mEq/L (3.5-5.1); Sodium 137 mEq/L (136-145); eGFR For African Americans > 60 (> 60); eGFR For Non-African Americans > 60 (> 60)
[2017-12-19] MEDS: amLODIPine 5 MG TABLET PO SCH (08:13)
[2017-12-19] MEDS: Aspirin 325 MG TABLET PO SCH (08:14)
[2017-12-19] MEDS: Levofloxacin 750 MG/150 ML 750 MG/150 ML BAG IVPB SCH (08:15)
[2017-12-19] MEDS: ALPRAZolam 1 MG TABLET PO PRN (08:19)
[2017-12-19] MEDS ORDERED: Furosemide 20 MG TABLET PO SCH (09:00)
--- NOTE | 2017-12-19 09:17 | Palliative Progress Note ---
Date of Encounter: 12/19/17 Time of Encounter: 09:00 - Assessment and plan (1) Costochondral chest pain Current Visit: No Status: Acute Assessment and plan: Reports continued costochondral chest pain controlled; prescriptions written for MS Contin and Roxanol for discharge. (2) Anxiety Current Visit: Yes Status: Acute Assessment and plan: Reports some anxiety; Prescription written for Xanax for discharge. (3) Acute and chronic respiratory failure with hypoxia Current Visit: Yes Status: Acute Assessment and plan: Reports improved dyspnea; Prescription written for MS Contin and Roxinol for discharge. (4) Dyspnea Current Visit: Yes Status: Acute Assessment and plan: Continued dyspnea; continue oxygen, MS Contin and Roxanol prescription written for discharge. Qualifiers: Dyspnea type: unspecified Qualified Code(s): R06.00 - Dyspnea, unspecified (5) Goals of care, counseling/discussion Current Visit: Yes Status: Acute Assessment and plan: Patient reports being ready to go home today. - Time Spent With Patient Total time spent is greater than 50% in coordination of care (as documented) at patient's floor/unit and/or counseling patient: - Subjective Interval history: Patient sitting in bed, alert and oriented times three eating breakfast. Patient reports being "completely calm and at peace." Reports pain is minimal now and medication is adequate. Plan to discharge home today. Hospice to deliver equipment at noon today. - Constitutional Vitals: Abnormal lab results MCH 25.5 pg (28.0-33.3) L 12/19/17 05:13 MCHC 30.5 g/dL (31.6-35.5) L 12/19/17 05:13 RDW 17.2 % (11.5-14.5) H 12/19/17 05:13 Nucleated RBCs/100 WBC 0.2 /100 WBC (0) H 12/14/17 15:22 ABG pH 7.48 pH Units (7.32-7.45) H 12/15/17 12:10 ABG pCO2 34 mmHg (35-45) L 12/15/17 12:10 Carbon Dioxide 34 mEq/L (23-29) H 12/19/17 05:13 Creatinine 0.51 mg/dL (0.60-1.20) L 12/19/17 05:13 BUN/Creatinine Ratio 31 (6-26) H 12/19/17 05:13 Glucose 132 mg/dL (70-105) H 12/19/17 05:13 - Head Head exam: Present: normal inspection - Eye Eye exam: Present: normal appearance - Neck Neck exam: Present: full ROM, normal inspection - Respiratory Respiratory exam: Present: CTAB. Absent: respiratory distress - Cardiovascular Cardiovascular exam: Present: +S1, +S2 - GI/Abdominal GI/Abdominal exam: Present: normal bowel sounds, soft. Absent: tenderness - Extremities Exam Extremities exam: Present: full ROM - Neurological Exam Neurological exam: Present: alert, oriented X3 - Psychiatric Psychiatric exam: Present: normal affect, normal mood Palliative Quality Palliative Quality: Screen for Code Status: Yes, Screen for Goals of Care: Yes, Screen for Pain: Yes, If Pain Regimen Started, Initiate Bowel Regimen: NA, Screen for Nausea/Vomitting: Yes Code Status: 12/16/17 11:29 Resuscitation Status: Active [RES] Routine Comment: Resuscitation Status: [id number] 12/16/17 12:17 DNR [Resuscitation Status: Active] [RES] Routine Comment: Resuscitation Status: DNR-Comfort Care - Labs CBC & Chem 7: 12/19/17 05:13 12/19/17 05:13 Labs: Laboratory Results - last 24 hr 12/19/17 12/19/17 05:13 05:13 WBC 9.6 RBC 4.86 Hgb 12.4 Hct 40.7 MCV 83.7 MCH 25.5 L MCHC 30.5 L RDW 17.2 H Plt Count 328 MPV 10.2 Sodium 137 Potassium 3.6 Chloride 98 Carbon Dioxide 34 H BUN 16 Creatinine 0.51 L Est GFR ( Amer) > 60 Est GFR (Non-Af Amer) > 60 BUN/Creatinine Ratio 31 H Glucose 132 H Calculated Osmolality 287 Calcium 9.1 - ABG Interpretation ABG results: ABG ABG pH 7.48 pH Units (7.32-7.45) H 12/15/17 12:10 ABG pCO2 34 mmHg (35-45) L 12/15/17 12:10 ABG pO2 88 mmHg (85-104) 12/15/17 12:10 ABG O2 Saturation 98 % (95-98) 12/15/17 12:10 Consult Discharge Plan - Plan Referrals: Theo Mahan MD [Primary Care Provider] - Prescriptions: Morphine Sulfate SR (12 HR) [MS Contin] 1 tab PO Q12HR 4 Days #8 tab Alprazolam [Xanax] 2 mg PO QID 4 Days #16 tablet Morphine Sulfate [Morphine Oral Solution] 10 ml SL Q2H PRN 4 Days #30 ml PRN Reason: pain and difficulty breathing
--- NOTE | 2017-12-19 10:59 | Event Note ---
Date of Encounter: 12/19/17 Time of Encounter: 10:57 [facility] Patient's family filled prescriptions for Xanax and Oxycodone per [facility] report, from prescription written in August 2017. Patient will be discharged on Roxanol PRN for dyspnea and pain as needed. Will notify hospice.
--- NOTE | 2017-12-19 11:07 | Event Note ---
Date of Encounter: 12/19/17 Time of Encounter: 11:05 Updated Nurse [facility], need to perform pill count of Xanax and Oxycodone upon initial assessment; need to confirm patient has necessary medications.
[2017-12-19 12:04] VITALS: BP 122/76
--- NOTE | 2017-12-19 12:55 | Discharge Summary ---
Date of Encounter: 12/19/17 Time of Encounter: 09:50 - Discharge Diagnosis (1) Acute and chronic respiratory failure with hypoxia Priority: Secondary Status: Acute Comments: Patient has returned to her normal baseline demand of oxygen. Continue home oxygen after discharge. (2) Acute bronchitis Priority: Secondary Status: Acute Comments: Lungs are clear and diminished throughout. Patient is in no distressat baseline O2 demand. Patient will continue course of Levaquin at home, continue O2 at home, prednisone taper. Qualifiers: Bronchitis organism: unspecified organism Qualified Code(s): J20.9 - Acute bronchitis, unspecified (3) Anxiety Priority: Secondary Status: Chronic Comments: Chronic. Palliative care has written a prescription for Xanax. (4) COPD exacerbation Priority: Secondary Status: Acute Comments: Acute on chronic. Patient presented to the emergency room with increased dyspnea and increased wheezing. Lungs are clear and diminished throughout. Patient reports that she is ready to go home, she will go home with hospice care and palliative care is following. She will continue her course of Levaquin at home, as well as a steroid taper, and her normal home O2. (5) Comfort measures only status Priority: Secondary Status: Acute Comments: Patient is DNR CC. Palliative care is following. (6) Diastolic CHF, chronic Priority: Secondary Status: Chronic Comments: No acute exacerbation. BNP is negative, chest x-ray is negative, patient appears to be euvolemic. Continue home dose of Lasix. (7) HTN (hypertension) Priority: Secondary Status: Chronic Comments: Chronic. Continue home medications. Qualifiers: Hypertension type: essential hypertension Qualified Code(s): I10 - Essential (primary) hypertension (8) Nicotine addiction Priority: Secondary Status: Chronic Comments: Patient reports smoking daily. She declines nicotine replacement therapy. Qualifiers: Nicotine product type: cigarettes Qualified Code(s): F17.210 - Nicotine dependence, cigarettes, uncomplicated (9) Costochondral chest pain Priority: Secondary Status: Acute Comments: Patient denies chest pain today. Pain is not reproducible. Oxycodone and MS Contin per palliative team. Hospital course: Ms. Rahman is a 62 year old female with past medical history of COPD, RA, tobacco abuse, CHF, chronic respiratory failure with hypoxia, OA, anxiety, HTN, and physical deconditioning. She presented to the ED with c/o AECOPD and increased dyspnea. She has been treated with IV steroids, IV Levaquin 750 mg 5 days, nebulizer treatments and 02. Palliative consult was placed during admission, patient has decided to become a DNR CC and return home with hospice care. Palliative care has written prescriptions for MS Contin and Roxanol for discharge. She also will have Xanax for anxiety. Patient is back to her baseline oxygen demand and states that she is ready to go home. Patient will be sent home with prescription for 2 days of Levaquin 750 mg by mouth, prednisone taper, as well as prescription for melatonin 6 mg at bedtime. Patient is stable and appropriate for discharge, home with hospice care. Discharge discussed with: patient - Time Spent with Patient Total time spent providing and/or coordinating discharge services: Less than 30 minutes - Discharge Medications Prescriptions: Morphine Sulfate SR (12 HR) [MS Contin] 1 tab PO Q12HR 4 Days #8 tab Alprazolam [Xanax] 2 mg PO QID 4 Days #16 tablet Levofloxacin [Levaquin] 750 mg PO DAILY #2 tablet Melatonin 6 mg PO HS PRN #30 tablet PRN Reason: Insomnia Morphine Oral CONC [Roxanol] 0.5 ml SL Q2H PRN 4 Days #30 ml PRN Reason: pain and dyspnea predniSONE [PredniSONE] 10 mg PO DAILY #31 tablet Home Medications: Albuterol Sulfate [Proair Respiclick] 2 puff IH Q4H PRN 02/16/16 [History] Aspirin 325 mg PO DAILY 02/16/16 [History] Budesonide/Formoterol 160/4.5 [Symbicort 160/4.5] 2 puff IH BID 02/16/16 [ History] Dronabinol [Marinol] 5 mg PO BID 02/16/16 [History] Ergocalciferol (VITAMIN D2) [Vitamin D2 (50,000 UNIT)] 50,000 unit PO QWEEK 07/24 [History] Furosemide [Lasix] 40 mg PO DAILY 02/16/16 [History] Potassium Chloride [K-Tab ER] 20 meq PO BID 02/16/16 [History] Promethazine [Phenergan] 25 mg PO Q6HR 02/16/16 [History] Roflumilast [Daliresp] 500 mcg PO DAILY 02/16/16 [History] Sertraline [Zoloft] 125 mg PO DAILY 02/16/16 [History] Tiotropium [Spiriva] 18 mcg IH DAILY 02/16/16 [History] amLODIPine [Norvasc] 2.5 mg PO DAILY 02/16/16 [History] Ipratropium/Albuterol Neb [Duoneb] 3 ml IH QID 09/06/17 [History] Oxygen 3 l NS AD 09/06/17 [History] Pyridoxine HCl [Vitamin B-6] 200 mg PO DAILY 09/06/17 [History] Riboflavin 400 mg PO DAILY 09/06/17 [History] Albuterol Neb [Proventil Neb] 2.5 mg IH Q4H PRN #120 inhsol 09/11/17 [Rx] Pantoprazole Sodium [Protonix] 40 mg PO DAILY #0 09/11/17 [Rx] Oxycodone HCl 15 mg PO Q6H PRN 7 Days #28 tablet 11/23/17 [Rx] Alprazolam [Xanax] 2 mg PO QID 12/14/17 [History] Fluconazole [Diflucan] 100 mg PO BID 12/14/17 [History] Guaifenesin [Mucinex] 1,200 mg PO BID 12/14/17 [History] Ondansetron ODT [Zofran ODT] 4 mg PO BID PRN 12/14/17 [History] Promethazine Syrup [Phenergan Syrup] 6.25 mg PO QID PRN 12/14/17 [History] Alprazolam [Xanax] 2 mg PO QID 4 Days #16 tablet 12/19/17 [Rx] Levofloxacin [Levaquin] 750 mg PO DAILY #2 tablet 12/19/17 [Rx] Melatonin 6 mg PO HS PRN #30 tablet 12/19/17 [Rx] Morphine Oral CONC [Roxanol] 0.5 ml SL Q2H PRN 4 Days #30 ml 12/19/17 [Rx] Morphine Sulfate SR (12 HR) [MS Contin] 1 tab PO Q12HR 4 Days #8 tab 12/19/17 [ Rx] predniSONE [PredniSONE] 10 mg PO DAILY #31 tablet 12/19/17 [Rx] Allergies/Adverse Reactions: 3 Allergy/AdvReac Type Severity Reaction Status Date / Time Cyclobenzaprine AdvReac Irritable Verified 11/20/17 10:58 [From Flexeril] gabapentin AdvReac Irritable Verified 11/20/17 10:58 Date of admission: 12/14/17 17:17 Primary care physician: Theo Mahan MD Consults: 12/14/17 18:47 Consult to Nutrition [CONS] Routine Comment: Consulting Provider: NUTRITION Reason for Dietary Consult: MST Score 12/15/17 11:30 Consult to Pulmonology [CONS] Routine Consulting Provider: Pulm [facility] Cher Reason for Consult: severe ex COPD Time Notified: 11:30 Call Completed: Yes 12/16/17 11:29 Consult to Palliative Care [CONS] Routine Comment: Consulting Provider: Palliative Care [facility] Reason for Consult: goals of care Time Notified: 11:34 Call Completed: Yes Discharging clinician: Janet Jean-Baptiste Anticipated date of discharge: 12/19/17 - Constitutional Vitals: Temp Pulse Resp BP Pulse Ox 97.8 F 89 17 122/76 98 12/19/17 12:04 12/19/17 12:04 12/19/17 12:04 12/19/17 12:04 12/19/17 12:04 General appearance: Present: cooperative, A&O X 3, pleasant, no acute distress, loss of weight, answers questions appropriately - Head Head exam: Present: atraumatic, normal inspection, normocephalic - Eye Eye exam: Present: normal appearance, conjuntiva pink, sclera anicteric - Neck Neck exam general surgery: Present: supple, trachea midline. Absent: lymphadenopathy, normal inspection, tenderness - Respiratory Respiratory exam: Present: decreased breath sounds, CTAB. Absent: accessory muscle use, chest wall tenderness, rales, respiratory distress, rhonchi, wheezes - Cardiovascular Cardiovascular exam: Present: RRR, +S1, +S2. Absent: diastolic murmur, gallop, rubs, systolic murmur - GI/Abdominal GI/Abdominal exam: Present: normal bowel sounds, soft. Absent: distended, tenderness - Extremities Exam Extremities exam: Present: normal capillary refill, normal inspection, warm, radial pulses palpable and symmetrical. Absent: calf tenderness, cyanotic, pedal edema, tenderness - Neurological Exam Neurological exam: Present: alert, oriented X3, no focal deficits. Absent: facial droop, speech deficit - Skin Skin exam: Present: dry, intact, normal color, warm. Absent: rash - Patient Status Disposition: Hospice - Home Condition: Fair Functional capacity at discharge: uses cane/walker Overall status at discharge: patient is progressing back to baseline - Discharge Instructions Follow Up With: Theo Mahan MD [Primary Care Provider] - Additional Instructions: Fpllow up with your PCP in the next 7-10 days for a recheck. Return to the ER as needed for any other problems or concerns ,or if your symtpoms return or worsen. Return to your normal diet as tolerated, activities as tolerated. - Diet and Activity Activity: increase activity as tolerated, wear oxygen at all times Diet: advance to your usual diet
== END 2017-12-19 14:29 | disposition hospice, home (50) | DRG 190 ==
LOC: 3BNU 14:09 → EMEROO 14:09 → 3BNU 17:09
PROVIDERS: ADMIT Internal Medicine; ATTEND Internal Medicine

== ENCOUNTER 2018-12-21 12:16 | Inpatient (IN) ==
[2018-12-21] MEDS ORDERED: MORPHINE SUL Oral CONC 10 MG/0.5 ML ORAL.SYG PO PRN (13:59)
[2018-12-21] MEDS ORDERED: Sennosides/Docusate Sodium TABLET PO PRN (13:59)
[2018-12-21] MEDS ORDERED: Magic Mouthwash 10 ML UD Cup PO PRN (14:08)
[2018-12-21] MEDS ORDERED: Benzonatate 100 MG CAPSULE PO PRN (14:08)
[2018-12-21] MEDS ORDERED: Lidocaine OINT 35.44 GM TUBE TP PRN (14:10)
--- NOTE | 2018-12-21 15:33 | Pallative History & Physical ---
Date of Encounter: 12/21/18 Time of Encounter: 14:55 Assessment and Plan (1) Goals of care, counseling/discussion Current visit: No Status: Acute Patient admitted from home as respite patient. All home medications ordered per DEC from Hospice. [facility] does not carry Daliresp. Notified Latia and requested patient to bring with her upon arrival. (2) Acute and chronic respiratory failure with hypoxia Current visit: No Status: Acute Oxygen saturation 96% on 6L. Continue oxygen therapy. Patient has nebulizer treatments in addition to maintenance COPD medications ordered per home MAR. (3) Dyspnea Current visit: No Status: Acute Patient reports having increased dyspnea. Ordered Roxanol 10 mg Q1H PRN for mo derate dyspnea/pain and Roxanol 20 mg Q2H for severe dyspnea/pain. Patient also has MS Contin 30 mg Q8H scheduled. Qualifiers: Dyspnea type: unspecified Qualified Code(s): R06.00 - Dyspnea, unspecified (4) Anxiety Current visit: No Status: Chronic Patient reports increased anxiety. Ordered Home dose of Xanax. Will consider adding Breakthrough Ativan in SL form if ineffective. (5) Increased body temperature Current visit: Yes Status: Acute Patient experiencing increased body temperature, quite warm to touch. Add Tylenol PRN. Patient afebrile at this time. (6) COPD (chronic obstructive pulmonary disease) Current visit: No Status: Chronic Terminal diagnosis. Reason for admission into hospice. Qualifiers: COPD type: emphysema Emphysema type: unspecified Qualified Code(s): J43.9 - Emphysema, unspecified Internal Medicine - H&P: HPI Chief complaint: dyspnea/COPD Admitted From: Home Plans for Post Hospital Care: Hospice - Home History of present illness: Ms. Rahman is a 63 year old female Patient arrived to [place] as a Respite patient from [facility]. Patient's terminal diagnosis is COPD. No family present at bedside. Patient lying in bed with pillows propping her up upon arrival for assessment. Patient is alert and oriented times 3. [employer] present at bedside (patient had asked for her and was contacted by Safety Council Director Krzysztof). Patient experiencing severe dyspnea, anxiety, and nausea. Patient denies pain. Patient reports she has been taking Roxanol 10 mg SL every hour at home, and occasionally takes the 20 mg dose. Patient also taking MS Contin 30 mg BID-TID at home. Patient feels very warm to touch, denies recent fever. Non productive cough noted during assessment. Patient was a transfer to [facility] in December 2017 for COPD. Past Med Surg Social Fam HX - Past Medical History Medical history: asthma, COPD, coronary artery disease, GERD, hyperlipidemia, hypertension, myocardial infarction, peripheral artery disease, RA Additional medical history: DDD Psychiatric history: no psych history - Past Surgical History Surgical History: cholecystectomy, coronary bypass (CABG), hysterectomy Additional surgical history: shoulder surgery - Social History Smoking Status: Current every day smoker Smokeless Tobacco Status: No Alcohol use: rarely Drug use: none - Family History Brother Adopted: No Living Status: Grandfather Living Status: Hx Family Cancer: Yes (lung) Paternal Family Member Ethnicity: Non- Living Status: Hx Family Cardiac Disorders: Yes Hx Family Cancer: Yes (lung) Hx Family Endocrine Disorder: Yes (DM) Mother Family Member Ethnicity: Non- Living Status: Hx Family Cardiac Disorders: Yes (CHF) Hx Family Respiratory Disorders: Yes (COPD) Hx Family Cancer: No Father Adopted: No Living Status: Hx Family Cardiac Disorders: Yes ([place],) Hx Family Endocrine Disorder: Yes (diabetes) Internal Medicine - H&P: Meds Albuterol Sulfate [Proair Respiclick] 2 puff IH Q4H PRN 02/16/16 [History] Aspirin 325 mg PO DAILY 02/16/16 [History] Budesonide/Formoterol 160/4.5 [Symbicort 160/4.5] 2 puff IH BID 02/16/16 [History] Dronabinol [Marinol] 5 mg PO BID 02/16/16 [History] Ergocalciferol (VITAMIN D2) [Vitamin D2 (50,000 UNIT)] 50,000 unit PO QWEEK 02/16/16 [History] Furosemide [Lasix] 40 mg PO DAILY 02/16/16 [History] Potassium Chloride [K-Tab ER] 20 meq PO BID 02/16/16 [History] Promethazine [Phenergan] 25 mg PO Q6HR 02/16/16 [History] Roflumilast [Daliresp] 500 mcg PO DAILY 02/16/16 [History] Sertraline [Zoloft] 125 mg PO DAILY 02/16/16 [History] Tiotropium [Spiriva] 18 mcg IH DAILY 02/16/16 [History] amLODIPine [Norvasc] 2.5 mg PO DAILY 02/16/16 [History] Ipratropium/Albuterol Neb [Duoneb] 3 ml IH QID 09/06/17 [History] Oxygen 3 l NS AD 09/06/17 [History] Pyridoxine HCl [Vitamin B-6] 200 mg PO DAILY 09/06/17 [History] Riboflavin 400 mg PO DAILY 09/06/17 [History] Albuterol Neb [Proventil Neb] 2.5 mg IH Q4H PRN #120 inhsol 09/11/17 [Rx] Pantoprazole Sodium [Protonix] 40 mg PO DAILY #0 09/11/17 [Rx] Oxycodone HCl 15 mg PO Q6H PRN 7 Days #28 tablet 11/23/17 [Rx] Alprazolam [Xanax] 2 mg PO QID 12/14/17 [History] Fluconazole [Diflucan] 100 mg PO BID 12/14/17 [History] Guaifenesin [Mucinex] 1,200 mg PO BID 12/14/17 [History] Ondansetron ODT [Zofran ODT] 4 mg PO BID PRN 12/14/17 [History] Promethazine Syrup [Phenergan Syrup] 6.25 mg PO QID PRN 12/14/17 [History] Alprazolam [Xanax] 2 mg PO QID 4 Days #16 tablet 12/19/17 [Rx] Levofloxacin [Levaquin] 750 mg PO DAILY #2 tablet 12/19/17 [Rx] Melatonin 6 mg PO HS PRN #30 tablet 12/19/17 [Rx] Morphine Oral CONC [Roxanol] 0.5 ml SL Q2H PRN 4 Days #30 ml 12/19/17 [Rx] Morphine Sulfate SR (12 HR) [MS Contin] 1 tab PO Q12HR 4 Days #8 tab 12/19/17 [Rx] predniSONE [PredniSONE] 10 mg PO DAILY #31 tablet 12/19/17 [Rx] Allergy/AdvReac Type Severity Reaction Status Date / Time Cyclobenzaprine AdvReac Irritable Verified 11/20/17 10:58 [From Flexeril] gabapentin AdvReac Irritable Verified 11/20/17 10:58 - Constitutional Constitutional ROS PAL: decreased appetite, anorexia, fatigue, lethargy, weight loss, no chills, no fever(s), no frequent falls - Cardiovascular Cardiovascular ROS: no chest pain, no edema - Respiratory Respiratory: cough, dyspnea, dyspnea on exertion, no hemoptysis, no pain on inspiration, no pain with cough - Gastrointestinal Gastrointestinal: nausea, no diarrhea, no vomiting - Genitourinary Palliative ROS female: no difficulty voiding - Musculoskeletal Musculoskeletal ROS IM: no back pain, no myalgias - Integumentary ROS Integumentary: dry skin - Neurological Neurological ROS: weakness, no confusion - Psychiatric Psychiatric general PM: anxiety Palliative Care-Exam - Constitutional Vitals: Temp Pulse Resp BP Pulse Ox 98.5 F 86 16 113/71 96 12/21/18 15:07 12/21/18 15:07 12/21/18 15:07 12/21/18 15:07 12/21/18 15:07 General appearance: Present: cooperative, mild distress, thin. Absent: obese - Head Head Exam: Present: atraumatic, normal inspection - Eye Eye exam: Present: EOMI, normal appearance, periorbital swelling (1+), PERRL, conjuntiva pink. Absent: periorbital tenderness - ENT ENT exam: Present: mucous membranes dry, normal external ear exam - Expanded ENT Exam Mouth Exam: Absent: drooling - Neck Neck exam: Present: full ROM, normal inspection - Respiratory Respiratory exam: Present: accessory muscle use, CTAB, wheezes. Absent: respiratory distress - Cardiovascular Cardiovascular exam: Present: +S1, +S2 - Expanded Cardiovascular Exam Peripheral pulses: 2+: Radial (L), Radial (R), Posterior Tibialis (L), Posterior Tibialis (R), Dorsalis Pedis (L) PM, Dorsalis Pedis (R) PM - GI/Abdominal Exam GI/Abdominal exam: Present: normal bowel sounds, soft. Absent: tenderness - Expanded GI/Abdominal Exam GI/Abdominal exam: Absent: ascites - Rectal Rectal exam: Present: deferred - Extremities Exam Extremities exam: Present: normal inspection. Absent: calf tenderness, pedal edema, tenderness - Back Exam Back exam: Present: full ROM, normal inspection. Absent: vertebral tenderness - Neurological Exam Neurological exam: Present: alert, oriented X3, reflexes normal, strengths equal and symetr throughout. Absent: altered, speech deficit - Expanded Neurological Exam Patient oriented to: Present: person, place, time Coma Scale Eye Opening: Spontaneous Coma Scale Motor Response: Obeys Commands Coma Scale Verbal Response: Oriented Coma Scale Total: 15 - Psychiatric Psychiatric exam: Present: anxious - Skin Skin exam: Present: dry, intact, normal color Palliative Quality Palliative Quality: Screen for Code Status: Yes (State form accompanying patient from [facility].), Screen for Goals of Care: Yes, Screen for Pain: Yes, If Pain Regimen Started, Initiate Bowel Regimen: Yes, Screen for Nausea/Vomitting: Yes Code Status: 12/21/18 13:59 Resuscitation Status: Active [RES] Routine Comment: Resuscitation Status: DNR-Comfort Care
[2018-12-21] MEDS ORDERED: Acetaminophen 325 MG TABLET PO PRN (15:39)
[2018-12-21] MEDS: *HR* Morphine Sulfate SR (12 HR) 30 MG TABLET.ER PO SCH ×2 (15:42→21:30)
[2018-12-21] MEDS ORDERED: *HR* Promethazine 25 MG/ML VIAL IVP PRN (16:00)
[2018-12-21] MEDS: MORPHINE SUL Oral CONC 10 MG/0.5 ML ORAL.SYG SL PRN ×2 (17:40→21:31)
[2018-12-21] MEDS: MORPHINE SUL Oral CONC 10 MG/0.5 ML ORAL.SYG PO PRN (19:34)
[2018-12-21] MEDS: ALPRAZolam 1 MG TABLET PO PRN (19:40)
[2018-12-21] MEDS: Ondansetron ODT 4 MG TAB.RAPDIS SL PRN (19:40)
[2018-12-21] MEDS: Budesonide/Formoterol 80/4.5 MDI IH SCH (20:15)
[2018-12-22] MEDS: MORPHINE SUL Oral CONC 10 MG/0.5 ML ORAL.SYG SL PRN ×3 (03:49→15:37)
[2018-12-22] MEDS: Ondansetron ODT 4 MG TAB.RAPDIS SL PRN (03:49)
[2018-12-22] MEDS: *HR* Morphine Sulfate SR (12 HR) 30 MG TABLET.ER PO SCH ×3 (06:12→21:13)
[2018-12-22] MEDS: Tiotropium 18 MCG inhalation IH SCH (09:50)
[2018-12-22] MEDS: Budesonide/Formoterol 80/4.5 MDI IH SCH ×2 (09:50→20:40)
[2018-12-22] MEDS: amLODIPine 5 MG TABLET PO SCH (09:58)
[2018-12-22] MEDS: Furosemide 40 MG TABLET PO SCH (09:58)
[2018-12-22] MEDS: ALPRAZolam 1 MG TABLET PO PRN ×3 (10:04→21:27)
--- NOTE | 2018-12-22 13:39 | Palliative Progress Note ---
Date of Encounter: 12/22/18 Time of Encounter: 11:40 - Assessment and plan (1) Constipation Current Visit: Yes Status: Acute Assessment and plan: Patient does not remember her last BM. Senna in place prn, will schedule BID (2) Cough Current Visit: Yes Status: Acute Assessment and plan: Noted to be having a non productive cough, per patient at her baseline. She uses benzonatate at home, ordered. Trial of Robitussin prn. (3) Anxiety Current Visit: No Status: Chronic Assessment and plan: patient was calm today. On Ordered Home dose of Xanax. (4) Dyspnea Current Visit: No Status: Acute Assessment and plan: Morphine 20 mg prn, patient received 4 doses in 24hrs Mscontin 30 mg q8hrs will add Duoneb q4hrs prn continue home inhalers. Qualifiers: Dyspnea type: unspecified Qualified Code(s): R06.00 - Dyspnea, unspecified (5) Generalized pain Current Visit: Yes Status: Acute Assessment and plan: states pain is well controlled by current pain medication (6) Goals of care, counseling/discussion Current Visit: No Status: Acute Assessment and plan: Patient admitted for respite care, However, noted to be symptomatic and requiring daily follow up and medication adjustment. May need transition to [facility]. Will observe today. (7) COPD (chronic obstructive pulmonary disease) Current Visit: No Status: Chronic Assessment and plan: Wheezing on exam, continue oxygen therapy and comfort measures. continue home COPD treatment. Added Duoneb nebulization treatment prn Qualifiers: COPD type: emphysema Emphysema type: unspecified Qualified Code(s): J43.9 - Emphysema, unspecified (8) Diastolic CHF, chronic Current Visit: No Status: Chronic Assessment and plan: on lasix home dose. no sign of exacerbation. - Time Spent With Patient Total time spent is greater than 50% in coordination of care (as documented) at patient's floor/unit and/or counseling patient: 25 - 35 minutes - Subjective Interval history: Ms. Davis is a 63 year old female, with terminal diagnosis of COPD, admitted to [facility] for about 1 year, now inpatient for respite. Patient was lying with her eyes closed, but opens eyes on name calling. She appears very weak and cachetic, states to be feeling sick. She is complaining of shortness of breath, cough and generalized pain. No family at the bedside. - Constitutional General appearance: Present: cooperative Exam: cachetic, very weak appearing - Respiratory Respiratory exam: Present: accessory muscle use, prolonged expiratory phase, rhonchi, wheezes Additional comments: reduced air entry in all lung davis, rales and wheezing. - Cardiovascular Cardiovascular exam: Present: RRR, +S1, +S2 - GI/Abdominal GI/Abdominal exam: Present: hypoactive bowel sounds, soft. Absent: tenderness - Extremities Exam Extremities exam: Present: full ROM, normal inspection - Neurological Exam Neurological exam: Present: alert, oriented X3 Palliative Quality Palliative Quality: Screen for Code Status: Yes (State form accompanying patient from [facility] Screen for Goals of Care: Yes, Screen for Pain: Yes, If Pain Regimen Started, Initiate Bowel Regimen: Yes, Screen for Nausea/Vomitting: Yes Code Status: 12/21/18 13:59 Resuscitation Status: Active [RES] Routine Comment: Resuscitation Status: DNR-Comfort Care Palliative Scale - Palliative Performance Scale How ambulatory is this patient?: Mainly in bed What is patient's level of activity and evidence of disease?: Unable to do most activity, Extensive disease How much self-care assistance does patient require?: Considerable assistance required How much oral intake does the patient have?: Normal or reduced What is this patient's level of consciousness?: Full Palliative Performance Score: 40 %
[2018-12-22] MEDS ORDERED: Ipratropium/Albuterol Neb 3 ML IH PRN (13:49)
[2018-12-22] MEDS ORDERED: GuaiFENesin Liq 200 MG/10 ML UDC PO PRN (13:58)
[2018-12-22] MEDS: MORPHINE SUL Oral CONC 10 MG/0.5 ML ORAL.SYG PO PRN (14:38)
[2018-12-22] MEDS: Ipratropium/Albuterol Neb 3 ML IH PRN ×2 (15:16→21:14)
[2018-12-22] MEDS: Sennosides/Docusate Sodium TABLET PO SCH ×2 (15:36→21:13)
[2018-12-23] MEDS: *HR* Morphine Sulfate SR (12 HR) 30 MG TABLET.ER PO SCH ×4 (05:47→22:05)
[2018-12-23] MEDS: Ondansetron ODT 4 MG TAB.RAPDIS SL PRN ×2 (06:20→18:51)
[2018-12-23] MEDS: MORPHINE SUL Oral CONC 10 MG/0.5 ML ORAL.SYG PO PRN ×3 (06:20→22:06)
[2018-12-23] MEDS: ALPRAZolam 1 MG TABLET PO PRN ×4 (06:23→22:05)
[2018-12-23] MEDS: Budesonide/Formoterol 80/4.5 MDI IH SCH ×2 (07:40→21:42)
[2018-12-23] MEDS: Tiotropium 18 MCG inhalation IH SCH (07:40)
[2018-12-23] MEDS: Sennosides/Docusate Sodium TABLET PO SCH ×2 (11:36→20:05)
[2018-12-23] MEDS: Furosemide 40 MG TABLET PO SCH (11:37)
[2018-12-23] MEDS: amLODIPine 5 MG TABLET PO SCH (11:37)
[2018-12-23] MEDS: ROFLUMILAST 500 MCG PO SCH (11:52)
--- NOTE | 2018-12-23 12:18 | Palliative Progress Note ---
Date of Encounter: 12/23/18 Time of Encounter: 11:00 - Assessment and plan (1) Constipation Current Visit: Yes Status: Acute Assessment and plan: Patient has no recorded BM. Senna in place scheduled BID (2) Cough Current Visit: Yes Status: Acute Assessment and plan: No episodes of coughing noted during exam, but she continues to have rales. ordered Atropine prn for secretions. (3) Anxiety Current Visit: No Status: Chronic Assessment and plan: patient was calm today. Ordered Home dose of Xanax. (4) Dyspnea Current Visit: No Status: Acute Assessment and plan: Morphine 20 mg prn, patient received 2 doses in 24hrs Mscontin 30 mg q8hrs Duoneb q4hrs prn, used 2 doses continue home inhalers. Qualifiers: Dyspnea type: unspecified Qualified Code(s): R06.00 - Dyspnea, unspecified (5) Generalized pain Current Visit: Yes Status: Acute Assessment and plan: denies pain, but is feeling very weak. Still able to swallow her pills. (6) Goals of care, counseling/discussion Current Visit: No Status: Acute Assessment and plan: Patient admitted for respite care, However, noted to be symptomatic and requiring daily follow up and medication adjustment. Patient appears to be actively dying. (7) COPD (chronic obstructive pulmonary disease) Current Visit: No Status: Chronic Assessment and plan: Wheezing imprved on exam, continue oxygen therapy and comfort measures. Continue home COPD treatment and Duoneb nebulization treatment prn Qualifiers: COPD type: emphysema Emphysema type: unspecified Qualified Code(s): J43.9 - Emphysema, unspecified (8) Diastolic CHF, chronic Current Visit: No Status: Chronic Assessment and plan: On lasix home dose. No sign of exacerbation. - Time Spent With Patient Total time spent is greater than 50% in coordination of care (as documented) at patient's floor/unit and/or counseling patient: 25 - 35 minutes - Subjective Interval history: Ms. Davis is a 63 year old female, with terminal diagnosis of COPD, admitted to [facility] for about 1 year, now inpatient for respite. Patient today appears more lethargic, she did not have any oral intake and was sleeping all morning. Per nursing she had a restless night. Ptinnt appears to be actively dying. - Constitutional Exam: eneral appearance: Present: cooperative Exam: cachetic, very weak appearing - Respiratory Respiratory exam: Present: accessory muscle use, prolonged expiratory phase, rhonchi, wheezes Additional comments: reduced air entry in all lung davis, rales and wheezing. - Cardiovascular Cardiovascular exam: Present: RRR, +S1, +S2 - GI/Abdominal GI/Abdominal exam: Present: hypoactive bowel sounds, soft. Absent: tenderness - Extremities Exam Extremities exam: Present: full ROM, normal inspection - Neurological Exam Neurological exam: Present: alert, oriented X3 Palliative Quality Palliative Quality: Screen for Code Status: Yes (State form accompanying patient from [facility] Screen for Goals of Care: Yes, Screen for Pain: Yes, If Pain Regimen Started, Initiate Bowel Regimen: Yes, Screen for Nausea/Vomitting: Yes Code Status: 12/21/18 13:59 Resuscitation Status: Active [RES] Routine Comment: Resuscitation Status: DNR-Comfort Care Palliative Scale - Palliative Performance Scale How ambulatory is this patient?: Mainly in bed What is patient's level of activity and evidence of disease?: Unable to do most activity, Extensive disease How much self-care assistance does patient require?: Considerable assistance required How much oral intake does the patient have?: Normal or reduced What is this patient's level of consciousness?: Full Palliative Performance Score: 40 %
[2018-12-23] MEDS: MORPHINE SUL Oral CONC 10 MG/0.5 ML ORAL.SYG SL PRN ×2 (17:00→20:06)
[2018-12-24] MEDS: MORPHINE SUL Oral CONC 10 MG/0.5 ML ORAL.SYG SL PRN ×4 (00:11→23:05)
[2018-12-24] MEDS: *HR* Morphine Sulfate SR (12 HR) 30 MG TABLET.ER PO SCH (05:23)
[2018-12-24] MEDS: Ondansetron ODT 4 MG TAB.RAPDIS SL PRN (05:26)
[2018-12-24] MEDS: MORPHINE SUL Oral CONC 10 MG/0.5 ML ORAL.SYG PO PRN ×3 (05:29→22:04)
[2018-12-24] MEDS: Budesonide/Formoterol 80/4.5 MDI IH SCH ×2 (09:42→22:11)
[2018-12-24] MEDS: Tiotropium 18 MCG inhalation IH SCH (09:43)
[2018-12-24] MEDS: ROFLUMILAST 500 MCG PO SCH (10:22)
[2018-12-24] MEDS: Furosemide 40 MG TABLET PO SCH (10:22)
[2018-12-24] MEDS: Sennosides/Docusate Sodium TABLET PO SCH ×2 (10:22→19:49)
[2018-12-24] MEDS: amLODIPine 5 MG TABLET PO SCH (10:22)
[2018-12-24] MEDS: Atropine 1% Opth Drops 100 DROP/5 ML BOTTLE SL PRN (11:06)
--- NOTE | 2018-12-24 13:13 | Palliative Progress Note ---
Date of Encounter: 12/24/18 Time of Encounter: 12:45 - Assessment and plan (1) Goals of care, counseling/discussion Current Visit: No Status: Acute Assessment and plan: No family present at bedside. Considering to transition patient to [facility] tomorrow if symptoms continue to worsen. (2) Acute and chronic respiratory failure with hypoxia Current Visit: No Status: Acute Assessment and plan: Oxygen saturation 83% on 6L. Continue oxygen therapy. Patient has nebulizer treatments to help with dyspnea. (3) Dyspnea Current Visit: No Status: Acute Assessment and plan: Patient unable to arouse enough to take scheduled MS Contin, which helps with her dyspnea. Changed MS Contin to Fentanyl 12 mcg transdermal patch; conversion with 25% reduction is 18.8 mcg. Qualifiers: Dyspnea type: unspecified Qualified Code(s): R06.00 - Dyspnea, unspecified (4) Anxiety Current Visit: No Status: Chronic Assessment and plan: Patient appears calm at this time. Home dose of Xanax ordered. (5) Increased body temperature Current Visit: Yes Status: Acute Assessment and plan: Patient experiencing increased body temperature, quite warm to touch. Patient afebrile at this time. (6) COPD (chronic obstructive pulmonary disease) Current Visit: No Status: Chronic Qualifiers: COPD type: emphysema Emphysema type: unspecified Qualified Code(s): J43.9 - Emphysema, unspecified - Time Spent With Patient Total time spent is greater than 50% in coordination of care (as documented) at patient's floor/unit and/or counseling patient: 25 - 35 minutes - Subjective Interval history: Patient lying in bed with eyes closed upon arrival for assessment. Patient minimally responds to tactile stimulation. Patient has been unable to arouse enough to take oral pain medications. since 5 am. No family present at beside. Oxygen saturation noted to be low during am assessment. - Constitutional General appearance: Present: disheveled, no acute distress, thin - Head Head exam: Present: atraumatic, normal inspection - Eye Eye exam: Present: conjuntiva pink. Absent: nystagmus, periorbital swelling, periorbital tenderness Pupils: Present: normal accommodation, PERRL. Absent: fixed - ENT ENT exam: Present: mucous membranes dry, normal external ear exam - Neck Neck exam: Absent: normal inspection (jugular distension noted.) - Expanded Neck Exam Neck exam: Absent: tenderness - Respiratory Respiratory exam: Present: accessory muscle use, decreased breath sounds, tachypnea. Absent: respiratory distress - Cardiovascular Cardiovascular exam: Present: +S1, +S2 - GI/Abdominal GI/Abdominal exam: Present: hypoactive bowel sounds, soft. Absent: tenderness - Rectal Rectal exam: Present: deferred - External exam: Present: normal external exam. Absent: lesions - Extremities Exam Extremities exam: Present: normal inspection. Absent: pedal edema - Back Exam Back exam: Present: normal inspection - Neurological Exam Neurological exam: Present: altered - Psychiatric Psychiatric exam: Present: flat affect - Skin Skin exam: Present: dry, intact, warm Palliative Quality Palliative Quality: Screen for Code Status: Yes (State form accompanying patient from [facility] Screen for Goals of Care: Yes, Screen for Pain: Yes, If Pain Regimen Started, Initiate Bowel Regimen: Yes, Screen for Nausea/Vomitting: Yes Code Status: 12/21/18 13:59 Resuscitation Status: Active [RES] Routine Comment: Resuscitation Status: DNR-Comfort Care Palliative Scale - Palliative Performance Scale How ambulatory is this patient?: Mainly in bed What is patient's level of activity and evidence of disease?: Unable to do most activity, Extensive disease How much self-care assistance does patient require?: Considerable assistance required How much oral intake does the patient have?: Minimal to sips What is this patient's level of consciousness?: Full or drowsy with or without confusion Palliative Performance Score: 30 % Consult Discharge Plan - Plan Referrals: Theo Mahan MD [Primary Care Provider] -
[2018-12-24] MEDS ORDERED: *HR* FentaNYL PATCH 12 MCG PATCH TD SCH (13:15)
[2018-12-25] MEDS: *HR* LORazepam Oral Conc 2 MG/ML SL PRN ×4 (00:11→15:54)
[2018-12-25] MEDS ORDERED: *HR* Promethazine 25 MG/ML VIAL IVP PRN (09:14)
[2018-12-25] MEDS ORDERED: Haloperidol Lactate 5 MG/ML VIAL IVP PRN (09:15)
[2018-12-25] MEDS ORDERED: Scopolamine Patch 1.5 MG PATCH.TD72 TD SCH (09:15)
--- NOTE | 2018-12-25 09:18 | Palliative Progress Note ---
Date of Encounter: 12/25/18 Time of Encounter: 08:50 - Assessment and plan (1) Goals of care, counseling/discussion Current Visit: No Status: Acute Assessment and plan: Patient to be transitioned to [facility] today. Notified Erin at [facility]. (2) Acute and chronic respiratory failure with hypoxia Current Visit: No Status: Acute Assessment and plan: Oxygen saturation 82% on 4L. Continue oxygen therapy. Patient experiencing increased dyspnea. Will increase Fentanyl Patch dosage today. Continue Roxanol of dyspnea. Patient has received a total of 40 mg of Roxanol and 12 mcg Fentanyl patch in the last 24 hours. (3) Dyspnea Current Visit: No Status: Acute Assessment and plan: Patient unable to take oral medications, can tolerate SL dosing at this time. Increase Fentanyl patch today. Continue Roxanol PRN. Qualifiers: Dyspnea type: unspecified Qualified Code(s): R06.00 - Dyspnea, unspecified (4) Anxiety Current Visit: No Status: Chronic Assessment and plan: Patient appears increasingly anxious. Patient experienced increased anxiety and agitation overnight, was unable to tolerate PO Xanax. Discontinued Xanax, Zoloft, and Elavil today. Continue Ativan SL. Add Haldol IVP PRN. (5) Increased body temperature Current Visit: Yes Status: Acute Assessment and plan: Patient remains afebrile. Changed PO to [place] Tylenol today. (6) COPD (chronic obstructive pulmonary disease) Current Visit: No Status: Chronic Assessment and plan: Terminal diagnosis. Reason for admission into hospice. Qualifiers: COPD type: emphysema Emphysema type: unspecified Qualified Code(s): J43.9 - Emphysema, unspecified (7) Nausea & vomiting Current Visit: Yes Status: Acute Assessment and plan: Patient received 1 dose Phenergan and 0 doses of Zofran in the last 24 hours. Patient no longer able to tolerate oral medications. Changing Zofran and Phenergan to IV forms at this time. Qualifiers: Vomiting type: unspecified (8) HTN (hypertension) Current Visit: No Status: Chronic Assessment and plan: Patient no longer able to take PO BP medications. Changed Norvasc PO to Hydralazine IVP PRN. Qualifiers: Hypertension type: essential hypertension Qualified Code(s): I10 - Essential (primary) hypertension (9) Excessive oral secretions Current Visit: Yes Status: Acute Assessment and plan: Patient noted to have increased audible lung sounds consistent with increased oral airway secretions. Added Scopalamine Patch today. Continue Atropine SL PRN, 1 dose in the last 24 hours. - Time Spent With Patient Total time spent is greater than 50% in coordination of care (as documented) at patient's floor/unit and/or counseling patient: - Subjective Interval history: Patient lying in bed with eyes closed upon arrival for assessment. Patient minimally responds to tactile stimulation, does nod yes when asked if in pain and short of breath. Patient has been unable to arouse enough to take oral medications. Patient also experienced increased restlessness overnight. Patient continues to be experiencing tachypnea. Oxygen saturation continues to be low with each assessment. No family present at beside. - Constitutional General appearance: Present: cooperative, disheveled, mild distress, thin - Head Head exam: Present: atraumatic, normal inspection - Eye Eye exam: Present: normal appearance, conjuntiva pink. Absent: nystagmus, periorbital swelling, periorbital tenderness Pupils: Present: normal accommodation, PERRL. Absent: fixed - ENT ENT exam: Present: mucous membranes dry, normal external ear exam - Neck Neck exam: Present: full ROM. Absent: normal inspection (jugular vein distension present.) - Respiratory Respiratory exam: Present: accessory muscle use, rhonchi, wheezes, tachypnea - Cardiovascular Cardiovascular exam: Present: +S1, +S2 - GI/Abdominal GI/Abdominal exam: Present: hypoactive bowel sounds, soft. Absent: tenderness - Rectal Rectal exam: Present: deferred - Expanded Exam Female exam: Present: deferred - Extremities Exam Extremities exam: Present: normal inspection. Absent: calf tenderness, pedal edema, tenderness - Back Exam Back exam: Present: normal inspection. Absent: tenderness - Neurological Exam Neurological exam: Present: alert (minimally. ). Absent: facial droop - Psychiatric Psychiatric exam: Present: anxious, flat affect - Skin Skin exam: Present: intact, pallor, warm. Absent: mottled Palliative Quality Palliative Quality: Screen for Code Status: Yes (State form accompanying patient from [facility] Screen for Goals of Care: Yes, Screen for Pain: Yes, If Pain Regimen Started, Initiate Bowel Regimen: Yes, Screen for Nausea/Vomitting: Yes Code Status: 12/21/18 13:59 Resuscitation Status: Active [RES] Routine Comment: Resuscitation Status: DNR-Comfort Care Palliative Scale - Palliative Performance Scale How ambulatory is this patient?: Mainly in bed What is patient's level of activity and evidence of disease?: Unable to do any activity, Extensive disease How much self-care assistance does patient require?: Total care How much oral intake does the patient have?: Mouth care only What is this patient's level of consciousness?: Full or drowsy with or without confusion Palliative Performance Score: 20 % Consult Discharge Plan - Plan Referrals: Theo Mahan MD [Primary Care Provider] -
[2018-12-25] MEDS ORDERED: Ondansetron 4 MG/2 ML VIAL IVP PRN (09:27)
[2018-12-25] MEDS ORDERED: *HR* FentaNYL PATCH 25 MCG PATCH TD SCH (09:28)
[2018-12-25] MEDS: MORPHINE SUL Oral CONC 10 MG/0.5 ML ORAL.SYG SL PRN ×2 (10:21→15:54)
[2018-12-25] MEDS: ROFLUMILAST 500 MCG PO SCH (11:05)
[2018-12-25] MEDS: Furosemide 40 MG TABLET PO SCH (11:05)
[2018-12-25] MEDS: MORPHINE SUL Oral CONC 10 MG/0.5 ML ORAL.SYG PO PRN ×2 (11:12→13:46)
--- NOTE | 2018-12-25 16:45 | Event Note ---
Date of Encounter: 12/25/18 Time of Encounter: 16:42 Notified by nurse that patient's pain does not seem controlled with current pain medication. Patient was examined, moaning and restless, complaining of back pain. She just received 30 mg of orphine in the last 3 hours and the fentanyl patch was increased. fentanyl patch was changed to 25 mcg. Will start fentanyl drip, d/c morphine and fentanyl patch.
[2018-12-25] MEDS: FentaNYL (PF) 1,000 MCG in 0.9 % Sodium Chloride 80 ML IVC SCH (19:49)
[2018-12-26] MEDS: FentaNYL (PF) 1,000 MCG in 0.9 % Sodium Chloride 80 ML IVC SCH ×4 (03:40→20:39)
[2018-12-26] MEDS: amLODIPine 5 MG TABLET PO SCH (08:10)
[2018-12-26] MEDS: Sennosides/Docusate Sodium TABLET PO SCH (08:11)
[2018-12-26] MEDS: ROFLUMILAST 500 MCG PO SCH (09:49)
[2018-12-26] MEDS: Furosemide 40 MG TABLET PO SCH (09:49)
[2018-12-26] MEDS: MORPHINE SUL Oral CONC 10 MG/0.5 ML ORAL.SYG SL PRN ×2 (09:50→21:39)
[2018-12-26] MEDS: Acetaminophen 650 MG RECTAL SUPP RC PRN (10:16)
--- NOTE | 2018-12-26 11:48 | Palliative Progress Note ---
Date of Encounter: 12/26/18 Time of Encounter: 11:00 - Assessment and plan (1) Constipation Current Visit: Yes Status: Acute Assessment and plan: not tolerating PO. Dulcolax prn (2) Cough Current Visit: Yes Status: Acute Assessment and plan: No episodes of coughing noted during exam, no secretions noted. ordered Atropine prn for secretions. discontinued Scopolamine patch (3) Anxiety Current Visit: No Status: Chronic Assessment and plan: patient was calm today. ativan and Haldol prn in place (4) Dyspnea Current Visit: No Status: Acute Assessment and plan: Fentanyl drip for pain and dyspnea Duoneb q4hrs prn, used 2 doses patient unable to continue home inhalers. Qualifiers: Dyspnea type: unspecified Qualified Code(s): R06.00 - Dyspnea, unspecified (5) Generalized pain Current Visit: Yes Status: Acute Assessment and plan: on fentanyl drip, max dose increased to 300mcg (6) Goals of care, counseling/discussion Current Visit: No Status: Acute Assessment and plan: Patient admitted to [facility] for symptom management and frequent medication adjustment. Patient appears to be actively dying, not espected to survive current admission. Friend and NETTA Meera agreeable with the plan. (7) COPD (chronic obstructive pulmonary disease) Current Visit: No Status: Chronic Assessment and plan: Wheezing improved on exam, continue oxygen therapy and comfort measures. Qualifiers: COPD type: emphysema Emphysema type: unspecified Qualified Code(s): J43.9 - Emphysema, unspecified (8) Diastolic CHF, chronic Current Visit: No Status: Chronic - Time Spent With Patient Total time spent is greater than 50% in coordination of care (as documented) at patient's floor/unit and/or counseling patient: - Subjective Interval history: Ms. Davis is a 63 year old female, with terminal diagnosis of COPD, admitted to [facility] for about 1 year, now inpatient for respite. Patient Aida remained restless, not opening eyes, but tossing and turning in bed and moaning in pain. She was started on fentanyl drip, drip was titrated up, no family present at the bedside. In the afternoon, reevaluated patient, she is more calm. Drip was titrated to the max of 200mcg/hr. It seems to be effective, will increase max dose in case patient needs increase. Removed scopolamine patch, as secretions are better and it may contribute to her delirium. Will add haldol 1mg q2hrs. Patient friend Meera was present at the bedside, agreeable with the plan. Hospice nurse was present. Patient is now unable to tolerate PO, except for SL medications.Will dc all po meds. - Constitutional Exam: General appearance: Present: cooperative Exam: cachetic, appears uncomfortable - Respiratory Respiratory exam: Present: accessory muscle use, prolonged expiratory phase, rhonchi, wheezes Additional comments: reduced air entry in all lung davis, rales and wheezing. - Cardiovascular Cardiovascular exam: Present: RRR, +S1, +S2 - GI/Abdominal GI/Abdominal exam: Present: hypoactive bowel sounds, soft. Absent: tenderness - Extremities Exam Extremities exam: Present: full ROM, normal inspection - Neurological Exam Neurological exam: Present: drowsy, not opening eyes, not following commands Palliative Quality Palliative Quality: Screen for Code Status: Yes (State form accompanying patient from [facility] Screen for Goals of Care: Yes, Screen for Pain: Yes, If Pain Regimen Started, Initiate Bowel Regimen: Yes, Screen for Nausea/Vomitting: Yes Code Status: 12/21/18 13:59 Resuscitation Status: Active [RES] Routine Comment: Resuscitation Status: DNR-Comfort Care Palliative Scale - Palliative Performance Scale How ambulatory is this patient?: Mainly in bed What is patient's level of activity and evidence of disease?: Unable to do any activity, Extensive disease How much self-care assistance does patient require?: Total care How much oral intake does the patient have?: Mouth care only What is this patient's level of consciousness?: Full or drowsy with or without confusion Palliative Performance Score: 20 % Consult Discharge Plan - Plan Referrals: Theo Mahan MD [Primary Care Provider] -
[2018-12-26] MEDS: *HR* LORazepam Oral Conc 2 MG/ML SL PRN ×2 (12:45→19:47)
[2018-12-26] MEDS ORDERED: Bisacodyl 10 MG RECTAL SUPPOSITORY RC PRN (16:17)
[2018-12-27] MEDS: *HR* LORazepam Oral Conc 2 MG/ML SL PRN ×2 (01:47→06:27)
[2018-12-27] MEDS: FentaNYL (PF) 1,000 MCG in 0.9 % Sodium Chloride 80 ML IVC SCH ×2 (02:30→07:34)
[2018-12-27] MEDS: Atropine 1% Opth Drops 100 DROP/5 ML BOTTLE SL PRN ×2 (02:31→06:28)
[2018-12-27] MEDS: Acetaminophen 650 MG RECTAL SUPP RC PRN (02:31)
[2018-12-27 06:51] VITALS: BP 122/77
--- NOTE | 2018-12-27 11:33 | Palliative Progress Note ---
Date of Encounter: 12/27/18 Time of Encounter: 11:31 - Assessment and plan (1) Cough Current Visit: Yes Status: Acute Assessment and plan: No episodes of coughing noted during exam, some secretions heard. ordered Atropine prn for secretions. discontinued Scopolamine patch (2) Constipation Current Visit: Yes Status: Acute Assessment and plan: not tolerating PO. Dulcolax prn (3) Anxiety Current Visit: No Status: Chronic Assessment and plan: patient was calm today. ativan and Haldol prn in place (4) Dyspnea Current Visit: No Status: Acute Assessment and plan: Fentanyl drip for pain and dyspnea patient unable to continue home inhalers. Qualifiers: Dyspnea type: unspecified Qualified Code(s): R06.00 - Dyspnea, unspecified (5) Generalized pain Current Visit: Yes Status: Acute Assessment and plan: on fentanyl drip, max dose increased to 300mcg (6) Goals of care, counseling/discussion Current Visit: No Status: Acute Assessment and plan: Patient admitted to [facility] for symptom management and frequent medication adjustment. Patient appears to be actively dying, not espected [facility]. Friend and NETTA Valentinn agreeable with the plan. (7) COPD (chronic obstructive pulmonary disease) Current Visit: No Status: Chronic Assessment and plan: Wheezing improved on exam, continue oxygen therapy and comfort measures. Qualifiers: COPD type: emphysema Emphysema type: unspecified Qualified Code(s): J43.9 - Emphysema, unspecified (8) Diastolic CHF, chronic Current Visit: No Status: Chronic Assessment and plan: On lasix home dose. No sign of exacerbation. - Time Spent With Patient Total time spent is greater than 50% in coordination of care (as documented) at patient's floor/unit and/or counseling patient: 25 - 35 minutes - Subjective Interval history: Ms. Davis is a 63 year old female, with terminal diagnosis of COPD, admitted to [facility] for about 1 year, was first admitted for respite, now [facility]. Aida today was lethargic, not opening eyes, but no moaning or restlessness. She was however tachypneic, on fentanyl drip max increased to 300mcg. Some rales heard on exam, received atropine x2 in 24hrs and Ativan x4 in 24hrs. appears to be actively dying. No family at the bedside. - Constitutional Exam: cachetic, lethargic - Respiratory Respiratory exam: reduced air entry in all lung davis, rales, tachypnea. - Cardiovascular Cardiovascular exam: Present: RRR, +S1, +S2 - GI/Abdominal GI/Abdominal exam: Present: hypoactive bowel sounds, soft. Absent: tenderness - Extremities Exam Extremities exam: Present: full ROM, normal inspection - Neurological Exam Neurological exam: Present: drowsy, not opening eyes, not following commands Palliative Quality Palliative Quality: Screen for Code Status: Yes (State form accompanying patient from [facility] Screen for Goals of Care: Yes, Screen for Pain: Yes, If Pain Regimen Started, Initiate Bowel Regimen: Yes, Screen for Nausea/Vomitting: Yes Code Status: 12/21/18 13:59 Resuscitation Status: Active [RES] Routine Comment: Resuscitation Status: DNR-Comfort Care Palliative Scale - Palliative Performance Scale How ambulatory is this patient?: Mainly in bed What is patient's level of activity and evidence of disease?: Unable to do any activity, Extensive disease How much self-care assistance does patient require?: Total care How much oral intake does the patient have?: Mouth care only What is this patient's level of consciousness?: Full or drowsy with or without confusion Palliative Performance Score: 20 % Consult Discharge Plan - Plan Referrals: Theo Mahan MD [Primary Care Provider] -
[2018-12-27] MEDS ORDERED: FentaNYL (PF) 1,000 MCG in 0.9 % Sodium Chloride 80 ML IVC SCH (11:43)
--- NOTE | 2018-12-31 09:37 | Death Note ---
Discharge Sum: Summary - Date and Time Date of admission: 12/21/18 15:00 Date of : 12/27/18 Time of : 12:55 - Summary Details: Ms. Rahman is a 63 year old female, with terminal diagnosis of COPD, admitted to [facility] for about 1 year, that was admitted inpatient for respite. Patient however became symptomatic, requiring frequent medication administration and adjustment. She was complaining of increasing pain, and developed terminal delirium. She was finally started on Fentanyl gtt and ativan. She peacefully. - Additional Data Confirmation of as documented by pronouncing clinician: no pulse, no respirations, no heart sounds Family: at bedside Attending/PCP notified?: Yes Attending physician: Tania Pablo MD Was code activated?: No Autopsy requested?: No accident examiner notified?: No Organ bank notified?: Yes Advance directives: Yes Hospice patient?: Yes Discharge Sum: Diag - PCOD Probable Cause of : Cardiac arrest Discharge Sum: Prov - Provider Primary care physician: Theo Mahan MD Admitting clinician: Tania Pablo Attending physician on admission: Tania Pablo Consults: 12/21/18 14:00 Consult to Palliative Care [CONS] Routine Comment: Consulting Provider: Palliative [facility] [place] Reason for Consult: Respite Call Completed: No
== END 2018-12-27 12:55 | disposition expired | DRG 951 ==
LOC: 2ANU 15:00
PROVIDERS: ADMIT Internal Medicine Hospice and Palliative Medicine; ATTEND Internal Medicine Hospice and Palliative Medicine